=== PATIENT | female | born 1935 | race Caucasian/White ===

== ENCOUNTER 2023-05-06 04:00 | Inpatient (IN) | payer OTHER, SELFPAY ==
[2023-05-05 22:10] VITALS: BP 93/46; BMI 20.8
[2023-05-05 22:29] LABS: % Basophils 1.3 % (0-2); % Eosinophils 3.3 % (0-6); % Immature Granulocytes 0.6 % (0-0.5); % Lymphocytes 16.5 % (20.5-51.1); % Monocytes 15.3 % (1.7-9.3); Absolute Basophils 0.1 10^3/uL (0-0.2); Absolute Eosinophils 0.2 10^3/uL (0-0.7); Absolute Lymphocytes 0.9 10^3/uL (1.2-3.4); Absolute Monocytes 0.8 10^3/uL (0.1-0.6); Absolute Neutrophils 3.4 10^3/uL (1.4-6.5); Hemoglobin 11.1 g/dL (12.0-16.0); Mean Corp Hgb Conc. 33.6 g/dL (33.0-37.0); Mean Corpuscular Hgb 27.8 pg (27.0-31.0); Mean Corpuscular Volume 82.5 fL (81.0-99.0); Mean Platelet Volume 9.8 fL (7.4-10.4); Nucleated Red Blood Cells % 0 %; Platelet Count 228 10^3/uL (130-400); Red Cell Dist. Width 17.2 % (11.5-14.5); White Blood Cell Count 5.4 10^3/uL (4.8-10.8)
[2023-05-05 22:41] LABS: ALT (SGPT) 21 U/L (0-35); AST (SGOT) 31 U/L (14-36); Albumin 3.3 g/dl (3.5-5.0); Alkaline Phosphatase 70 U/L (38-126); Blood Urea Nitrogen 28 mg/dl (7-17); Calcium 9.2 mg/dl (8.4-10.2); Carbon Dioxide 32 mmol/L (22-30); Chloride 101 mmol/L (98-107); Estimated Creatinine Clearance 39 ml/min; Glucose 92 mg/dl (70-99); Potassium 4.5 mmol/L (3.5-5.1); Sodium 134 mmol/L (135-145); Total Bilirubin 0.4 mg/dl (0.2-1.3); Total Protein 6.5 g/dl (6.3-8.2); eGFR > 60.00
[2023-05-05 23:28] VITALS: BP 86/58
[2023-05-05] MEDS: NSS 500 IV (23:58)
[2023-05-06] VITALS (47 sets, daily range): BP systolic 64–170; BP diastolic 38–102; BMI 21.1
[2023-05-06 00:42] LABS: Urine Albumin Negative (Neg - Trace); Urine Bilirubin Negative (Negative); Urine Character Slightly Cloudy (Clear); Urine Color Yellow; Urine Glucose Negative (Negative); Urine Ketone Trace (Negative); Urine Leukocyte Negative (Negative); Urine Nitrite Negative (Negative); Urine Occult Blood 1+ (Negative); Urine Specific Gravity 1.015 (<1.030); Urine Urobilinogen Negative (Neg - 1+)
[2023-05-06 01:00] LABS: Urine Amorphous Seen; Urine Bacteria Many (Negative); Urine Mucus Many; Urine Squamous Cell >30 /LPF (Few)
[2023-05-06 01:01] LABS: Urine Hyaline Cast >15 /LPF (0-2)
[2023-05-06 01:02] LABS: Urine White Cell 30-40 /HPF (0-5)
[2023-05-06 01:03] LABS: Urine Urothelial Cell >30 /LPF (FEW)
[2023-05-06 01:08] LABS: Lactic Acid 1.3 mmol/L (0.7-2.0)
[2023-05-06] MEDS: ROCEPHIN 1000 MG IV ×2 (01:35→23:16)
[2023-05-06] MEDS: NSS 1000 IV (01:37)
--- NOTE | 2023-05-06 01:43 | ED.GENMED ---
History of Present Illness
General
Chief Complaint: Change Level of Consciousness
Source: patient
Exam Limitations: none
Time Seen by Provider: 05/05/23 23:13
Nursing documentation reviewed up to this point in time: agreed with
Travel History
Have you had any contact with someone who has COVID-19?: Unable to Answer
Do you have any symptoms of coronavirus? Fever > 100 degrees, chills, cough, shortness of breath, sore throat, loss of taste or smell, muscle aches, or headache?: Unable to Answer
History of Present Illness
History of Present Illness:
Patient with history of dementia, presents to ED from senior care, secondary to mental status change along with hypotension. Patient was also given her nighttime Xanax, as well as melatonin, which started tonight. On arrival, patient is
somnolent, but arousable to voice. Patient does not offer any additional information. Per daughters at bedside, when aroused, patient is able to recognize her daughter and answer simple questions.
Past History
Past History
ED Past Medical History: Arrthythmia (Atrial fibrillation), CHF, HTN, Hypercholesterolemia, Hypothyroidism and Psychiatric (ANXIETY); Negative CAD
ED Past Surgical History: Appendectomy, Cardiac (Pacemaker) and Gynecological (Hysterectomy, breast lumpectomy)
Social History
Tobacco: Non-smoker
Alcohol: Occasional
Drug: None
Personal:
Living: with family
Employment: Retired
Family History
Family History: Other (Noncontributory)
Review of Systems
Review of Systems
Allergies reviewed?: Yes
Unable to obtain full review of systems at this time due to: dementia
All Other Systems: Not applicable
Phy Exam
Physical Exam
Physical Exam:
Physical Exam
General: no apparent distress, not acutely ill. afebrile. somnolent but arousable to loud voice. hypotensive.
Head: nc/at.
Neck: supple. no meningeal signs.
Heart: s1/s2 regular rate and rhythm, no murmur. equal radial pulses.
Lungs: no acute respiratory distress. clear bilaterally
Abdomen: normal bowel sounds. not tender.
Neuro: somnolent but arousable. no focal neurological deficits
Skin: no rash
Extremities: no edema. no calf tenderness.
Course
Orders/Labs/Results
Orders:
Orders
05/05/23 22:21
Complete Blood Count/With Diff Urgent
Comprehensive Metabolic Panel Urgent
05/05/23 23:49
Straight cath- Treatment ONCE
Lactic Acid Q4H
Comment: CANCEL 2nd LACTIC ACID IF 1st LACTIC ACID IS LESS THAN 2
Urinalysis Reflex To Culture Urgent
Date Specimen was Collected: 05/05/23
Time Specimen was Collected: 00:00
Blood Culture Q30M
ALEXIA Source: Blood/Venous
Specimen Description:
05/05/23 23:50
0.9% Sodium Chloride 500 ml [Nss] 500 ml IV BOLUS
05/06/23 00:00
CT Head W/o Iv Contrast Urgent
Reason For Exam: mental status change
05/06/23 00:06
Urine Microscopic Reflex Cult Urgent
Urine Culture Urgent
ALEXIA Source: U
Specimen Description:
Date Specimen was Collected: 05/05/23
Time Specimen was Collected: 00:00
05/06/23 01:29
CefTRIAXone [Rocephin] 1,000 mg IV NOW STA
05/06/23 01:30
0.9% Sodium Chloride 1000 ml [Nss] 1,000 ml IV BOLUS
05/06/23 02:33
Admit/Transfer Patient As Directed
Co-Sign Provider:
Level of Care: Inpatient admission
Assign to:: Telemetry
Physician / Group: Dr. Orozco hospitalist
Diagnosis: UTI, Hypotension, Dehydration
Reason for Telemetry: Medication for Arrhythmia
Date to Stop Telemetry: 05/08/23
Time to Stop Telemetry: 11:00
Reason for Hospitalization: UTI, Hypotension, Dehydration
Expected length of stay greater than two midnights?: Yes
ELOS- Estimated Length of Stay in days: 5
I certify the patient meets the requirements for IP care: Yes
05/06/23 02:48
Code Status As Directed
Resuscitation Status: Full Code
05/06/23 03:32
Lactated Ringers [Lr] 500 ml IV BOLUS
05/06/23 03:44
Transfer Patient As Directed
Transfer to: ICU
Comment: Per Dr. Orozco
05/06/23 04:00
Flush (0.9% Sodium Chloride) [Flush (Nss)] See Dose Instructions IV PER PROTOCOL
05/06/23 04:48
Acetaminophen [Tylenol] 650 mg PO Q4HPRN PRN
Alprazolam [Xanax] 0.5 mg PO TID PRN
Lactated Ringers [Lr] 1,000 ml IV 100 mls/hr
Risperidone [Risperdal] 0.25 mg PO DAILY PRN
Risperidone [Risperdal] 0.5 mg PO HS PRN
05/06/23 04:48
Activity As Directed
Activity Level: As Tolerated
Pneumatic Compression Sleeves As Directed
Type: Knee high
Vital Signs As Directed
Frequency: Per unit guidelines
DX Deep Vein Thrombosis Video Routine
05/06/23 05:43
Basic Metabolic Panel IN AM
Complete Blood Count/No Diff IN AM
Magnesium IN AM
TSH IN AM
Blood Culture Q30M
ALEXIA Source: Blood/Venous
Specimen Description:
05/06/23 Breakfast
NPO
Allow oral meds: Yes
Allow clear liquids: No
05/06/23 07:00
Levothyroxine [Synthroid] 25 mcg PO DAILY AT 0700
05/06/23 08:00
Apixaban [Eliquis] 2.5 mg PO BID
Docusate W/Senna [Senokot-S] 2 tablet PO BID
Sotalol [Betapace] 80 mg PO BID
05/06/23 23:00
CefTRIAXone [Rocephin] 1,000 mg IV Q24H
05/08/23 11:00
DC Protocol for Telemetry ONCE
Abnormal Lab Results
05/05/23 05/06/23
22:21 00:06
RBC 4.00 L 10^6/uL
(4.20-5.40)
Hgb 11.1 L g/dL
(12.0-16.0)
Hct 33.0 L %
(37.0-47.0)
RDW 17.2 H %
(11.5-14.5)
Absolute Lymphs (auto) 0.9 L 10^3/uL
(1.2-3.4)
Absolute Monos (auto) 0.8 H 10^3/uL
(0.1-0.6)
Immature Gran % 0.6 H %
(0-0.5)
Lymphocytes % 16.5 L %
(20.5-51.1)
Monocytes % 15.3 H %
(1.7-9.3)
Sodium 134 L mmol/L
(135-145)
Carbon Dioxide 32 H mmol/L
(22-30)
BUN 28 H mg/dl
(7-17)
Albumin 3.3 L g/dl
(3.5-5.0)
Urine Ketones Trace A
(Negative)
Ur Occult Blood Reflex 1+ A
(Negative)
Urine RBC 7-10 A /HPF
(0-2)
Urine WBC (Reflex) 30-40 A /HPF
(0-5)
Urine Bacteria (Reflex) Many A
(Negative)
05/05/23 22:21
05/05/23 22:21
Vital Signs
Initial and Last Documented VS:
Initial Vital Signs
Temp Pulse Resp BP Pulse Ox
97.6 F 65 16 93/46 96
05/05/23 22:10 05/05/23 22:10 05/05/23 22:10 05/05/23 22:10 05/05/23 22:10
Last Documented Vital Signs
Temp Pulse Resp BP Pulse Ox
97 F 60 12 142/74 94
05/06/23 07:47 05/06/23 07:45 05/06/23 07:45 05/06/23 07:40 05/06/23 08:20
MDM/Problems Addressed
MDM/Problems Addressed:
Per senior care, patient's baseline blood pressure is systolic 100/110.
CT head: No acute findings.
Patient's presenting symptoms likely secondary to UTI versus medication effect versus metabolic encephalopathy. Patient will be treated empirically with antibiotics as well as IV fluids.
Urine culture and blood culture pending.
*Critical Care Note
Total Time (30-74mins, 75-104mins- exclusive of procedures): Not Applicable
ED Attending Note
-
Portions of this chart may have been created with voice recognition software.� Occasional wrong word or��sound alike� substitutions may have occurred due to the inherent limitations of voice recognition software.
Discharge Plan
Departure
Patient Disposition: Admit
Date of Disposition: 05/06/23
Time of Disposition: 01:52
Admit to: Telemetry
Presentation/result/management discussed w/ accepting MD/DO: Hospitalist
Discharge Problem:
Altered mental status, Acute UTI
Interventions
Interventions:
*Risk Screen - Suicide Last Done: 05/05/23 22:10
*General Assessment Last Done: 05/05/23 22:10
*Neglect/Abuse Screening Last Done: 05/05/23 22:10
ED- Fall Risk Assessment Last Done: 05/05/23 22:10
*ED COVID-19 Vaccine History Last Done: 05/05/23 22:10
*Nursing Disposition Last Done: 05/06/23 04:53
ED- Cardiac Assessment Last Done: 05/05/23 22:10
ED- Neurological Assessment Last Done: 05/05/23 22:10
ED-Psychological Assessment Last Done: 05/05/23 22:10
ED- Pulmonary Assessment Last Done: 05/05/23 22:10
Discharge Date and Time
Discharge Date/Time: 05/06/23 04:53
--- NOTE | 2023-05-06 02:31 | HPS.HSE ---
Addendum entered and electronically signed by Cassius Orozco MD 05/06/23 04:21:
Evolving Septic shock due to UTI
MAP < 60. LR 500 cc bolus but SBP dropped again 65
- cont. IV CFTZ
- start NE gtt and�
- TF to ICU
�
Original Note:
Family Physician
-
Family Physician: Gopal Thakur DO
Chief Complaint
-
lethargy
History of Present Illness
88F [facility] Res HX dementia sent to ER for secondary to mental status change along with hypotension.
Patient was also given her nighttime Xanax, as well as melatonin, which started tonight.
On arrival, patient is somnolent, but arousable to voice. Patient does not offer any additional information.
Per daughters at bedside, when aroused, patient is able to recognize her daughter and answer simple questions.
Medical History
Past Medical History
Past Medical History: Reports Arrhythmia (Prx AF ), Dementia, HTN and Psychiatric (anxiety / depression )
Past Surgical History: Reports Other
Social History
Tobacco: Non-smoker
Alcohol: None
Living: Retirement
Family History
Family History: Not pertinent
Allergies / Home Medications
Allergies reflects when Allergies were last updated in [facility].
Home Medications with original date entered in [facility]
Allergy/Medication List:
Allergies
Allergy/AdvReac Type Severity Reaction Status Date / Time
carbamazepine [From Tegretol] Allergy hypertension, Verified 05/05/23 22:19
pain
codeine [Codeine] Allergy upset Verified 05/05/23 22:19
stomach
morphine Allergy Unknown Verified 05/05/23 22:19
Penicillins Allergy Hives Verified 05/05/23 22:19
sulfamethoxazole Allergy 'burning Verified 05/05/23 22:19
[From Bactrim] inside
whole body'
tramadol Allergy Unknown Verified 05/05/23 22:19
trimethoprim [From Bactrim] Allergy 'burning Verified 05/05/23 22:19
inside
whole body'
Home Medications
furosemide 20 mg tablet 20 mg PO DAILY Fluid retention/Swelling 09/08/14
levothyroxine 25 mcg tablet 25 mcg PO DAILY Thyroid 09/09/14
sotalol 80 mg tablet 80 mg PO BID ##180 09/10/14
acetaminophen 500 mg tablet (Tylenol Extra Strength) 1,000 mg PO Q6HPRN PRN mild pain 07/10/19
alendronate 70 mg tablet 70 mg PO TH bone health 07/10/19
citalopram 20 mg tablet 10 mg PO DAILY Mental Health 07/10/19
lisinopril 20 mg tablet 40 mg PO DAILY Blood pressure 07/10/19
apixaban 2.5 mg tablet (Eliquis) 2.5 mg PO BID #60 tabs 07/14/19
acetaminophen 325 mg tablet (Tylenol) 650 mg PO Q4HPRN PRN fever 03/31/23
alprazolam 0.5 mg tablet (Xanax) 0.5 mg PO TID 03/31/23
bisacodyl 10 mg rectal suppository (Dulcolax (bisacodyl)) 10 mg OR [id number] PRN if no bm aftr mom 03/31/23
cholecalciferol (vitamin D3) 125 mcg (5,000 unit) tablet (Vitamin D3) 125 mcg PO MONTHLY 03/31/23
magnesium hydroxide 400 mg/5 mL oral suspension (Milk of Magnesia) 2,400 mg PO HSPRN PRN constipation 03/31/23
memantine 7 mg capsule sprinkle,extended release 24hr (Namenda XR) 7 mg PO DAILY 03/31/23
risperidone 0.25 mg tablet 0.25 mg PO DAILY 03/31/23
risperidone 0.5 mg tablet 0.5 mg PO HS 03/31/23
sennosides 8.6 mg-docusate sodium 50 mg capsule (Senna Plus) 2 tab-cap PO BID 03/31/23
Review of Systems
-
Constitutional: Reports No Symptoms
EENT: Reports No Symptoms
Respiratory: Reports No Symptoms
Cardiac: Reports No Symptoms
Abdomen/GI: Reports No Symptoms
: Reports No Symptoms
Musculoskeletal: Reports No Symptoms
Skin: Reports No Symptoms
Neurological: Reports See HPI
Endocrine: Reports No Symptoms
Hematologic/Lymphatic: Reports No Symptoms
Psych: Reports No Symptoms
Physical Exam
Vital Signs
Vital Signs
Temp Pulse Resp BP Pulse Ox
97.6 F 60 16 92/51 94
05/05/23 22:10 05/06/23 01:56 05/06/23 01:56 05/06/23 02:00 05/06/23 01:56
Physical Exam
General: Other (see below )
Laboratory Results
-
05/05/23 22:21
05/05/23 22:21
Laboratory Results
Lactic Acid 1.3 mmol/L (0.7-2.0) 05/06/23 00:06
Total Bilirubin 0.4 mg/dl (0.2-1.3) 05/05/23 22:21
AST 31 U/L (14-36) 05/05/23 22:21
ALT 21 U/L (0-35) 05/05/23 22:21
Alkaline Phosphatase 70 U/L (38-126) 05/05/23 22:21
Data Reviewed
-
CT Scan: Report Reviewed by me
Lab Data: Labs Reviewed by me
Old Records: Reviewed
Impression/Plan
-
Reviewed VS: Afebrile HR 60 BP 75/40 --> 90/50 RR 16 POx 94 - 97
PE
Gen: no apparent distress
HEENT: anicteric
Neck: supple
Lungs: CTA
Cor: RRR S1 S2
Abdomen: benign exam
TECHNOLOGY INTEGRATION SPECIALIST: AA O3 NFND
MS: no edema
Psych:
Data
Nl WCC
Hgb 11.1
Na 134
CO2 32 - baseline low 30s
nl Cr
nl eGFR
UA POS for UCx
Pending LA
BCx sent
HCT
No acute ICH
No mass effect
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
Last hospitalist admission: 07/20/20 - 07/22/20
P Dxs:
Right fifth metatarsal fracture with distal calcaneus extensor tendon injury, avulsion fractures of the distal
fibula and medial malleolus.
SECONDARY DIAGNOSES:
1. Dementia with anxiety.
2. Paroxysmal atrial fibrillation.
3. Sick sinus syndrome.
4. Anxiety/depression.
5. Osteoarthritis.
6. Hypothyroidism.
7. Depression.
ASSESSMENT & PLAN
Pending Rx reconciliation
UTI
Associated Lethargic TME due to UTI
- NPO for aspiration precaution
- IV CFTX
- Held Melatonin
- Switch to Risperidone PRN in place of schedule dose to lethargy
- cont. Xanax - held excessive sedation
- Fall precaution
Hypotension suspect dehydration rather than sepsitc shock
Hypercarbia - suspect contraction alkalosis
HX essential HTN on Lasix and ACEI
- IVF
- Held Lasix
- Held Lisinopril
- Observe BP
HX Prx AF
HX Sick sinus syndrome.
- cont Eliquis and sotalol
HX Dementia
HX Anxiety/depression
HX Hypothyroidism
- Pending Rx reconciliation
HX Osteoarthritis.
DVT Px: on chr Eliquis
Code: Full
IP TLM
[2023-05-06] MEDS: LR 500 IV (03:35)
--- NOTE | 2023-05-06 03:36 | EDRN ---
Dr. Orozco made aware of patient's BP, Pt roused from sleep, responding to tactile stimul. SEE MAR for order.
[2023-05-06] MEDS: LEVOPHED 250 IV (04:23)
--- NOTE | 2023-05-06 04:23 | W.PN.UPDATE ---
Addendum entered and electronically signed by Cassius Orozco MD 05/06/23 04:31:
Talent Sourcer and ID consult
Original Note:
Update Note
Progress Note Update
DIRECTOR OF ROTC noted DNR per [facility] record
- Code status change to DNR
- cont NE gtt and Fluid resuscitation for septic shock which can be reversible
- cont. IV CFTX
- cont ICU level care
--- NOTE | 2023-05-06 05:09 | W.PN.SEPSIS ---
Sepsis
Vital Signs
Temp Pulse Resp BP Pulse Ox
97.6 F 65 14 107/60 94
05/05/23 22:10 05/06/23 04:15 05/06/23 04:27 05/06/23 04:27 05/06/23 01:56
Physical Exam
Physical Exam:
A focused exam was performed after fluid resuscitation.
Capillary Refill
Bilateral Upper Extremity:
Oscar Time: Less than 3 sec
Bilateral Lower Extremity:
Oscar Time: Less than 3 sec
Pulse Evaluation
Bilateral Radial:
Pulse Evaluation: Present
Bilateral Dorsalis Pedis:
Pulse Evaluation: Present
[2023-05-06] MEDS: LR 1000 IV ×3 (05:40→23:15)
[2023-05-06 05:52] LABS: Hematocrit 33.6 % (37.0-47.0); Hemoglobin 10.9 g/dL (12.0-16.0); Mean Corp Hgb Conc. 32.4 g/dL (33.0-37.0); Mean Corpuscular Hgb 28.2 pg (27.0-31.0); Mean Corpuscular Volume 86.8 fL (81.0-99.0); Mean Platelet Volume 9.6 fL (7.4-10.4); Platelet Count 209 10^3/uL (130-400); Red Blood Cell Count 3.87 10^6/uL (4.20-5.40); Red Cell Dist. Width 17.2 % (11.5-14.5); White Blood Cell Count 4.5 10^3/uL (4.8-10.8)
[2023-05-06 06:05] LABS: Blood Urea Nitrogen 22 mg/dl (7-17); Calcium 8.4 mg/dl (8.4-10.2); Carbon Dioxide 30 mmol/L (22-30); Chloride 108 mmol/L (98-107); Estimated Creatinine Clearance 44 ml/min; Glucose 94 mg/dl (70-99); Magnesium 2.1 mg/dl (1.6-2.3); Potassium 4.5 mmol/L (3.5-5.1); Sodium 137 mmol/L (135-145); eGFR > 60.00
[2023-05-06 06:35] LABS: TSH 5.86 uIU/ml (0.47-4.68)
--- NOTE | 2023-05-06 07:09 | PTCARENOTE ---
Patient received from ED via stretcher. Levophed infusing @ 2 mcg/min through left AC w/no concerns. Ox1, self only; HR reg, A paced, HR 60; lungs diminished t/o on room air, pulsox 92%, BS x 4, purewick placed and patient refused. Asked for bed
purdy. Patient does speak occasionally, did ask to go to the bathroom, used bed purdy. Patient also said 'my arm hurts' when obtaining am labs. See Nursing shift assessment for full
--- NOTE | 2023-05-06 07:15 | PTCARENOTE ---
Received patient from senior software engineer. Patient is awake, minimally responsive, somnolent, unable to respond to any commands, only repeatedly states 'I have to pee'. Patient is on room air, diminished throughout, no inspiratory effort, does not
respond when asked to take a deep breath. Patient is A-paced on monitor. no edema noted. She has been incontinent of urine, brief on. Currently NPO. Will hold PO meds until seen by speech. IVF infusing in to left AC along with 1mcg of
levophed. Will review orders, bed in lowest position, call robison within reach and bed alarm is on. Maintain safe environment.
--- NOTE | 2023-05-06 07:31 | CON.ID ---
Consultation
-
Date/Time Consultation Requested: 05/06/2023 04:29
Date/Time Consultation Performed: 05/06/2023 07:20
Requesting Provider: Dr. Orozco
Performing Provider: Dr. Bloom
Reason for Consultation: UTI; encephalopathy
Chief Complaint / Past History
History of Present Illness
Marie Rodriguez is a 88-year-old female with an underlying history of dementia, A-fib and CHF being evaluated at the request of Dr. Orozco in regards to suspected urinary tract infection. History is obtained from chart review alone, as the patient
could provide no history for me.
Patient resides at a local correction and was brought to the emergency room. [facility] last evening secondary to reported change in mental status and hypotension. While in the emergency room, her blood pressure dropped into the 60s, and
she has been started on norepinephrine and admitted to the intensive care unit. Laboratory workup did not show a leukocytosis, but urinalysis revealed pyuria. She has been started on empiric antibiotics.
At this time no further history nor review of systems is available.
Past History
Additional Past Medical History:
Dementia
A-fib
CHF
HTN
Dyslipidemia
Hypothyroidism
Anxiety
Additional Past Surgical History:
Appendectomy
PPM placement
JOSE
Lumpectomy
Allergy History:
carbamazepine [From Tegretol] Allergy (Verified 05/05/23 22:19)
hypertension, pain
codeine [Codeine] Allergy (Verified 05/05/23 22:19)
upset stomach
morphine Allergy (Verified 05/05/23 22:19)
Unknown
Penicillins Allergy (Verified 05/05/23 22:19)
Hives
sulfamethoxazole [From Bactrim] Allergy (Verified 05/05/23 22:19)
'burning inside whole body'
tramadol Allergy (Verified 05/05/23 22:19)
Unknown
trimethoprim [From Bactrim] Allergy (Verified 05/05/23 22:19)
'burning inside whole body'
Social History
Tobacco: Non-Smoker
Alcohol: Occasional
Drug: None
Personal:
Employment: Not Employed
Review of Systems
Vital Signs
Temp Pulse Resp BP Pulse Ox
98.0 F 60 9 114/59 92
05/06/23 05:00 05/06/23 07:15 05/06/23 07:15 05/06/23 07:00 05/06/23 07:15
Physical Exam
Physical Exam
Constitutional: Acutely Ill, Chronically Ill and Non-toxic
Eyes: Pupils Equal, Pupils Round, No Conjunctival Hemorrhage and Sclera Anicteric
Oral: No Thrush and No Ulcers
Cardiovascular: S1/S2; Negative S3/S4 or Murmur
Pulmonary: Non Labored; Negative Wheezes, Rales or Rhonchi
Gastrointestinal: Soft, Non Tender, Non Distended, Normal Bowel Sounds, No Rebound and No Guarding
Genito-Urinary: Negative An or Suprapubic Tenderness
Extremities: Edema (1+); Negative Cyanosis or Erythema
Neurological: Other (Responsive to voice and touch. Nonverbal for me.)
Psychological: Calm
.
Lab / Diagnostic Study Results
05/06/23 05:43
05/06/23 05:43
Abs Immat Gran (auto) 0.0 10^3/uL (0-0.05) 05/05/23 22:21
Absolute Neuts (auto) 3.4 10^3/uL (1.4-6.5) 05/05/23 22:21
Absolute Lymphs (auto) 0.9 10^3/uL (1.2-3.4) L 05/05/23 22:21
Absolute Monos (auto) 0.8 10^3/uL (0.1-0.6) H 05/05/23 22:21
Absolute Basos (auto) 0.1 10^3/uL (0-0.2) 05/05/23 22:21
Immature Gran % 0.6 % (0-0.5) H 05/05/23 22:21
Neutrophils % 63.0 % (42.2-75.2) 05/05/23 22:21
Lymphocytes % 16.5 % (20.5-51.1) L 05/05/23 22:21
Monocytes % 15.3 % (1.7-9.3) H 05/05/23 22:21
Eosinophils % 3.3 % (0-6) 05/05/23 22:21
Basophils % 1.3 % (0-2) 05/05/23 22:21
Lactic Acid Cancelled 05/06/23 03:49
Ur Squamous Epith Cells >30 /LPF (Few) 05/06/23 00:06
Microbiology Results
Micro:
05/06/23 05:43 Blood Culture - Pending
Blood/Venous
05/06/23 00:06 Urine Culture - Pending
Urine
05/06/23 00:06 Blood Culture - Pending
Blood/Venous
Imaging:
05/06/2023 CXR (portable): Stable left chest wall cardiac device with intact leads. No convincing focal infiltrates. No pleural effusion or pneumothorax seen. Please see full dictation for additional detail. Film personally viewed.
05/06/2023 CT head: No acute intracranial abnormality noted.
Assessment / Plan
Clinical sepsis
Suspected complicated urinary tract infection
Hypotension
Dementia
A-fib
CHF
HTN
Dyslipidemia
Hypothyroidism
Anxiety
Recommendations:
Given residence in correction, broaden antibiotic coverage to cefepime.
Follow-up pending cultures (blood, urine), and adjust antibiotics as further data is returned.
Monitor white count and temperature curve.
Repeat blood cultures for temperature greater than 101 degrees.
Continue pressor therapy to maintain MAP greater than 65.
[2023-05-06] MEDS: SYNTHROID PO (07:40)
[2023-05-06] MEDS: BETAPACE PO ×2 (07:40→19:05)
[2023-05-06] MEDS: SENOKOT-S PO ×2 (07:41→19:05)
[2023-05-06] MEDS: ELIQUIS PO ×2 (07:41→19:05)
--- NOTE | 2023-05-06 08:00 | PTCARENOTE ---
Has only stated 'I have to pee, minimally incontinent, PVR >400, straight cathed for 420ml.
--- NOTE | 2023-05-06 09:06 | CON.INTV ---
Consultation
Consultation Request
Date/Time Consultation Requested: 05/06/2023428
Date/Time Consultation Performed: 05/06/2023903
Requesting Provider: Dr. Orozco
Performing Provider: Dr. Espinoza
Reason for Consultation: Shock
Medical History
-
Chief Complaint: Unresponsiveness
History of Present Illness:
88-year-old female with past medical history of hypertension, A-fib on Eliquis, hypothyroidism, hyperlipidemia and anxiety who presented from [facility] ([facility]) after episode of unresponsiveness after receiving melatonin and Xanax.
While in triage here in the ER she was back at baseline. In the ER she was afebrile to 97.6 �F, pulse rate 60, hypotensive to 64/43, and saturated at 94% on room air. Patient was confused and is a poor historian. Labs showed mild hyponatremia
134, elevated serum bicarbonate of 32, lactate normal at 1.3, glucose 92, WBC normal at 5.4, Hb low at 11.1, and platelet count 228. Urinalysis was negative for leukocyte esterase or nitrites and showed 30�40 urine WBCs with many bacteria. A total
of 2 L fluids were given (1.5 L NS 0.9%, 500 cc of LR) and ceftriaxone was started and patient was admitted to the hospitalist service. Due to hypotension, Levophed was started and patient transferred to ICU for further care with critical care
services consulted for additional management/recommendations.
When I saw the patient she was in bed, confused,, repeating that she wants something to drink, on room air saturating 93%. BP 88/57, heart rate 60 and respiratory rate 12.
PMHx: A-fib on Eliquis, hypertension, hyperlipidemia, history of bradycardia, history of pneumonia, hemorrhoids, hypothyroidism, impaired vision, anxiety, dementia
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
Past Medical History
Past Medical History: Other (Above as per HPI)
Past Surgical History: Other (Above as per HPI)
Social History
Tobacco: Non-smoker
Alcohol: None
Drug: None
Living: Jail
Family History
Family History: Reviewed & Not Pertinent
Allergies / Home Medications
Allergies
Allergy/AdvReac Type Severity Reaction Status Date / Time
carbamazepine [From Tegretol] Allergy hypertension, Verified 05/05/23 22:19
pain
codeine [Codeine] Allergy upset Verified 05/05/23 22:19
stomach
morphine Allergy Unknown Verified 05/05/23 22:19
Penicillins Allergy Hives Verified 05/05/23 22:19
sulfamethoxazole Allergy 'burning Verified 05/05/23 22:19
[From Bactrim] inside
whole body'
tramadol Allergy Unknown Verified 05/05/23 22:19
trimethoprim [From Bactrim] Allergy 'burning Verified 05/05/23 22:19
inside
whole body'
Home Medications
Medication Instructions Recorded Confirmed Last Taken Type
furosemide 20 mg tablet 20 mg PO DAILY Fluid 09/08/14 03/31/23 07/10/19 History
retention/Swelling
levothyroxine 25 mcg tablet 25 mcg PO DAILY Thyroid 09/09/14 03/31/23 07/10/19 History
sotalol 80 mg tablet 80 mg PO BID ##180 09/10/14 03/31/23 07/10/19 09:00 Rx
acetaminophen 500 mg tablet 1,000 mg PO Q6HPRN PRN mild pain 07/10/19 03/31/23 Unknown History
(Tylenol Extra Strength)
alendronate 70 mg tablet 70 mg PO TH bone health 07/10/19 03/31/23 07/10/19 History
citalopram 20 mg tablet 10 mg PO DAILY Mental Health 07/10/19 03/31/23 07/10/19 History
lisinopril 20 mg tablet 40 mg PO DAILY Blood pressure 07/10/19 03/31/23 07/10/19 History
apixaban 2.5 mg tablet (Eliquis) 2.5 mg PO BID #60 tabs 07/14/19 03/31/23 Unknown Rx
acetaminophen 325 mg tablet 650 mg PO Q4HPRN PRN fever 03/31/23 03/31/23 Unknown History
(Tylenol)
alprazolam 0.5 mg tablet (Xanax) 0.5 mg PO TID 03/31/23 03/31/23 Unknown History
bisacodyl 10 mg rectal suppository 10 mg ID [id number] PRN if no bm aftr 03/31/23 03/31/23 Unknown History
(Dulcolax (bisacodyl)) mom
cholecalciferol (vitamin D3) 125 125 mcg PO MONTHLY 03/31/23 03/31/23 Unknown History
mcg (5,000 unit) tablet (Vitamin
D3)
magnesium hydroxide 400 mg/5 mL 2,400 mg PO HSPRN PRN constipation 03/31/23 03/31/23 Unknown History
oral suspension (Milk of Magnesia)
memantine 7 mg capsule 7 mg PO DAILY 03/31/23 03/31/23 Unknown History
sprinkle,extended release 24hr
(Namenda XR)
risperidone 0.25 mg tablet 0.25 mg PO DAILY 03/31/23 03/31/23 Unknown History
risperidone 0.5 mg tablet 0.5 mg PO HS 03/31/23 03/31/23 Unknown History
sennosides 8.6 mg-docusate sodium 2 tab-cap PO BID 03/31/23 03/31/23 Unknown History
50 mg capsule (Senna Plus)
Review of Systems
-
Unable to Obtain full review of systems at this time due to: Dementia
Vitals / Labs / Diagnostic Testing
Vital Signs
Temp Pulse Resp BP Pulse Ox
97 F 60 12 142/74 94
05/06/23 07:47 05/06/23 07:45 05/06/23 07:45 05/06/23 07:40 05/06/23 08:20
Lab Data
05/06/23 05:43
05/06/23 05:43
Diagnostic Testing:
Physical Exam
-
HEENT: Normocephalic and Anicteric
Cardiovascular: S1/S2 and Peripheral Edema (Negative)
Respiratory: Clear, Wheeze (Negative), Rales (Negative), Rhonchi (Negative) and Non-Labored Respirations
GI: Soft, Non Distended and Non Tender
Neurology: Awake, No Motor Deficits (Negative) and Other (confused)
Skin: Warm and Dry
General: Comfortable
Assessment
-
Assessment: 88-year-old female with a PMHx of HTN, A-fib on Eliquis, hypothyroidism, hyperlipidemia and anxiety who presented from [facility] ([facility]) after episode of unresponsiveness after receiving melatonin and Xanax. She was found
to be hypotensive and given IV fluids. She was also nonverbal and CT head showed no evidence of intracranial abnormality. CXR also showed no acute cardiopulmonary process. Labs showed mild hyponatremia, elevated serum bicarbonate, WBC count was
normal and urinalysis showed elevated hyaline casts. Due to persistent hypotension despite 2 L of IV fluids, vasopressors were started and patient admitted to the ICU. Critical care services consulted for additional management/recommendations.
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
Impression:
#Shock - suspect hypovolemia (elevated urine hyaline casts and elevated sHCO3 consistent with contraction alkalosis); UTI also on differential; TSH also abnormal so hypothyroidism also on DDx
#Elevated serum bicarbonate -either due to primary metabolic alkalosis versus compensatory due to chronic respiratory acidosis
#Anemia (baseline Hb 11.5 - 13)
#AMS - apparently she is back to baseline as per ER triage documentation; DDx is TME with possible UTI vs delirium
#Hx of dementia
#Elevated TSH
Plan:
- Continue IVF but drop rate to 100cc/hr given her ABW is 56kg
- Check random cortisol level and if <10 then start stress dose steroids; if 10-19 then consider co-syntropin stim test
- Wean vasopressors to keep MAP>65
- Continue rocephin empirically but if pt remains afebrile and urine/blood Cx negative by 48 hr jeni, then would do short course Abx (3-5 days)
- Check/trend procal, and if negative then thats even more evidence to do short course of Abx
- Maintain euglycemia with goal BG 140-180mg/dL
- Check blood gas to assess pCO2 given elevated sHCO3
- NPO until mentation improves; may need DHT for tube feeds if she remains altered
- check free T4, free T3 --> if low then would start supplemental levothyroxine
- Replete K>3.5, Mg>1.8, PO4>3
- DVT ppx
Critical care statement: A total of 40 minutes of critical care time was provided for this patient today. This includes management of unstable vital signs, evaluation of the patient at bedside, reviewing the patient's pertinent medical records
including radiographs, microbiology, laboratory evaluations, and discussion with primary team, consultants, pharmacy, nutrition, physical therapy, case management, charge nurse, critical care nursing, and respiratory therapy.
Data:
CT Head 05-06-2023: No acute intracranial abnormality noted.
CXR 05-06-2023: No acute cardiopulmonary process.
--- NOTE | 2023-05-06 09:26 | W.PN.UPDATE ---
Update Note
Progress Note Update
Patient seen and examined after post midnight admission. Patient awake and alert but currently nonverbal.
142/74, 60, 12, 97.0 �F, 94% RA
NAD, awake and alert
RRR, normal S1/S2
CTAB
+BS/soft/NT/ND
CN2-12 intact
no LE edema
CXR: No acute cardiopulmonary process.
Septic shock due to UTI:
-cont Rocephin
-currently on 1mcg/kg/min Levophed, increase IVFs to 150cc/hr to wean off Levophed
-follow UCx/BCxs
-transfer to IMU
--- NOTE | 2023-05-06 09:39 | PTCARENOTE ---
Now written for IMU status. IVF changed to 150.hr and Levo turned off based on parameters.
--- NOTE | 2023-05-06 12:00 | PTCARENOTE ---
No change in patient's assessment, remains off levophed.
[2023-05-06 12:41] LABS: Glucose - Point of Care 100 mg/dl (70-99)
[2023-05-06 12:43] LABS: Free T3 3.07 pg/ml (2.77-5.27); Free T4 1.19 ng/dl (0.78-2.19)
[2023-05-06 12:56] LABS: Cortisol, Random 14.8 ug/dl
--- NOTE | 2023-05-06 19:09 | PTCARENOTE ---
received patient. pt nonverbal, does not respond to questions/follow commands. b/l soft wrist restraints in place, medsitter in room. SR/A paced on monitor. Pt placed on 2L NC, now satting mid 90s. diminished breath sounds noted. NPO status. brief
in place, dry. repositioned with wedge to L side. IVF infusing. safe environment maintained. IMU status. plan of care ongoing.
[2023-05-06] MEDS: STERILE WATER FOR INJECTION 10 ML IV (23:15)
[2023-05-07] VITALS (16 sets, daily range): BP systolic 78–152; BP diastolic 46–70; BMI 21.2
--- NOTE | 2023-05-07 00:58 | PTCARENOTE ---
patient reassessed. systems unchanged. pt repositioned, CHG bath done and new brief in place. daughter updated via phone. plan of care ongoing.
[2023-05-07 03:44] LABS: Venous Blood Gas B.E. 3.9 mmol/L (-4 to +4); Venous Blood Gas HCO3 29.7 mmol/L (22-27); Venous Blood Gas O2 Sat % 98.2 %; Venous Blood Gas pCO2 49 mmHg (35-48); Venous Blood Gas pH 7.39 (7.32-7.43); Venous Blood Gas pO2 141 mmHg (30-50)
[2023-05-07 03:54] LABS: % Basophils 0.8 % (0-2); % Eosinophils 2.8 % (0-6); % Immature Granulocytes 0.3 % (0-0.5); % Lymphocytes 12.5 % (20.5-51.1); % Monocytes 13.1 % (1.7-9.3); % Neutrophils 70.5 % (42.2-75.2); Absolute Basophils 0.1 10^3/uL (0-0.2); Absolute Eosinophils 0.2 10^3/uL (0-0.7); Absolute Lymphocytes 0.8 10^3/uL (1.2-3.4); Absolute Monocytes 0.8 10^3/uL (0.1-0.6); Absolute Neutrophils 4.4 10^3/uL (1.4-6.5); Hematocrit 30.7 % (37.0-47.0); Hemoglobin 10.4 g/dL (12.0-16.0); Mean Corp Hgb Conc. 33.9 g/dL (33.0-37.0); Mean Corpuscular Hgb 27.7 pg (27.0-31.0); Mean Corpuscular Volume 81.9 fL (81.0-99.0); Mean Platelet Volume 9.9 fL (7.4-10.4); Nucleated Red Blood Cells % 0 %; Platelet Count 209 10^3/uL (130-400); Red Blood Cell Count 3.75 10^6/uL (4.20-5.40); Red Cell Dist. Width 17.1 % (11.5-14.5); White Blood Cell Count 6.2 10^3/uL (4.8-10.8)
[2023-05-07 04:14] LABS: Blood Urea Nitrogen 16 mg/dl (7-17); Calcium 8.5 mg/dl (8.4-10.2); Carbon Dioxide 31 mmol/L (22-30); Chloride 104 mmol/L (98-107); Estimated Creatinine Clearance 58 ml/min; Glucose 98 mg/dl (70-99); Potassium 4.5 mmol/L (3.5-5.1); Sodium 136 mmol/L (135-145); eGFR > 60.00
--- NOTE | 2023-05-07 05:00 | PTCARENOTE ---
patient reassessed. systems unchanged. incontinent, brief changed. AM labs sent. pt repositioned in bed. plan of care ongoing.
[2023-05-07] MEDS: SYNTHROID PO (06:30)
--- NOTE | 2023-05-07 08:08 | W.PN.HOSP.TC ---
Today's Communication/Plan
-
Continue with cefepime. Follow culture data
Assessment / Plan
Assessment / Plan
Change in mental status-suspect TME. Neurologically grossly nonfocal and CT head was negative on admission. Currently alert but nonverbal [patient has dementia-unknown baseline] she had hypotension admission with concerns for sepsis. Currently
alert. Will discuss with family if her current situation is close to baseline.
Shock requiring vasopressors suspected septic. Afebrile. No leukocytosis on admission. Abnormal urinalysis noted. Off of vasopressors now. Continue with fluids till oral intake is adequate.
Possible UTI-patient with abnormal urine analysis. Await urine culture. ID input noted-continue the cefepime per ID
Urothelial cells in the urine-check cytology
Dementia-currently without agitation. Continue her memory medication and antidepressants. Patient is also on scheduled risperidone and Ativan at long term which I would continue
Paroxysmal atrial fibrillation-patient is a paced rhythm. Continue with sotalol.
Primary hypertension-hold lisinopril due to hemodynamics
DNR
Anticipated Discharge: > 48 hours
Subjective/Interval History
-
Date of Service: May 07, 2023
Patient with eyes open and tracks me but but does not verbalize anything.
She is in restraints in the upper extremities. No agitation currently.
Objective Data
-
Labs:
Laboratory Results
05/07/23
03:29
WBC 6.2
Hgb 10.4 L
Hct 30.7 L
Plt Count 209
Sodium 136
Potassium 4.5
Chloride 104
Carbon Dioxide 31 H
BUN 16
Creatinine 0.6
Glucose 98
Calcium 8.5
Vital Signs:
Vital Signs
Temp Pulse Resp BP Pulse Ox
99.0 F 60 8 107/55 97
05/07/23 03:02 05/07/23 07:00 05/07/23 07:00 05/07/23 07:00 05/07/23 06:00
I&O
05/06/23 05/07/23 05/08/23
06:59 06:59 06:59
Intake Total 70 / 143.8 2421.4 / 2421.4
Output Total 420 / 420
Balance 50 / 123.8 2000.2000.4
Review of Systems
-
Unable to obtain full review of systems at this time due to: Dementia and Patient Non-verbal
Physical Exam
-
General: No Apparent Distress
HEENT: Moist Mucous Membranes
Respiratory: Clear to Auscultation (Anterior)
Cardiac: Regular Rhythm and S1/S2; Negative Tachycardic
GI: Soft, Nondistended and Normal Bowel Sounds
Neuro: Awake, Alert and No Motor Deficits (Difficult exam but moves all 4 limbs); Negative Tremors or Facial Droop
Psych: Calm
Data Reviewed
-
Labs: Labs Reviewed by me
--- NOTE | 2023-05-07 08:27 | PTCARENOTE ---
Pt received this am. Assessment as documented. Pt makes eye contact. Nods head occasionally to questions. Very weak hand grasps. Does not always follow commands. Eats small amount ice when offered. No coughing noted. Incont of urine. Pt care ongoing
--- NOTE | 2023-05-07 09:20 | W.PN.ID1 ---
Date of Service
Date of Service: May 07, 2023
Today's Communication
Continue antibiotics.
Assessment / Plan
Clinical sepsis
Suspected complicated urinary tract infection
Hypotension
Dementia
A-fib
CHF
HTN
Dyslipidemia
Hypothyroidism
Anxiety
Recommendations:
Continue cefepime.
Follow-up pending cultures (blood, urine), and adjust antibiotics as further data is returned.
Monitor white count and temperature curve.
Repeat blood cultures for temperature greater than 101 degrees.
Vital Signs / Physical Exam
Vital Signs
Vital Signs
Temp Pulse Resp BP Pulse Ox
98.8 F 60 8 107/55 97
05/07/23 07:30 05/07/23 07:00 05/07/23 07:00 05/07/23 07:00 05/07/23 08:00
Physical Exam
Constitutional: No Acute Distress, Comfortable, Chronically Ill, Non-toxic and Cachetic
Cardiovascular: S1/S2; Negative S3/S4
Pulmonary: Non Labored
Gastrointestinal: Soft and Non Tender
Psychological: Calm
Objective Data
Lab Data
Lab Results
05/07/23 03:29
05/07/23 03:29
Estimated Creat Clear 58 ml/min 05/07/23 03:29
Lactic Acid Cancelled 05/06/23 03:49
Total Bilirubin 0.4 mg/dl (0.2-1.3) 05/05/23 22:21
AST 31 U/L (14-36) 05/05/23 22:21
ALT 21 U/L (0-35) 05/05/23 22:21
Alkaline Phosphatase 70 U/L (38-126) 05/05/23 22:21
Most recent labs reviewed.
Micro Results:
05/06/23 05:43 Blood Culture - Preliminary
Blood/Venous No Growth in 24 hours- Final report to follow
05/06/23 00:06 Blood Culture - Preliminary
Blood/Venous No Growth in 24 hours- Final report to follow
05/06/23 09:16 MRSA Screen - Pending
Nose
05/06/23 00:06 Urine Culture - Pending
Urine
Imaging:
05/06/2023 CXR (portable): Stable left chest wall cardiac device with intact leads. No convincing focal infiltrates. No pleural effusion or pneumothorax seen. Please see full dictation for additional detail. Film personally viewed.
05/06/2023 CT head: No acute intracranial abnormality noted.
--- NOTE | 2023-05-07 09:43 | W.PN.INTV ---
Today's Communication / Plan
Recommendations
Continue antibiotics
Follow-up urine culture sensitivities
PT/OT
Maintain SpO2 >90-94%
Check walking pulse ox prior to discharge
Patient stable for transfer out of ICU to telemetry. Time Checker/pulmonary service will now sign off. Please reconsult if there are any additional questions/concerns.
Assessment
-
Assessment: 88-year-old female with a PMHx of HTN, A-fib on Eliquis, hypothyroidism, hyperlipidemia and anxiety who presented from [facility] ([facility]) after episode of unresponsiveness after receiving melatonin and Xanax. She was found
to be hypotensive and given IV fluids. She was also nonverbal and CT head showed no evidence of intracranial abnormality. CXR also showed no acute cardiopulmonary process. Labs showed mild hyponatremia, elevated serum bicarbonate, WBC count was
normal and urinalysis showed elevated hyaline casts. Due to persistent hypotension despite 2 L of IV fluids, vasopressors were started and patient admitted to the ICU. Critical care services consulted for additional management/recommendations.
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
Impression:
#Shock (resolved) - suspect hypovolemia (elevated urine hyaline casts and elevated sHCO3 consistent with contraction alkalosis) in the setting of sepsis due to UTI
#Elevated serum bicarbonate - combination of primary metabolic alkalosis + compensatory due to chronic respiratory acidosis
#UTI due to strep spp
#Anemia (baseline Hb 11.5 - 13)
#AMS - apparently she is back to baseline as per ER triage documentation; DDx is TME with possible UTI vs delirium --> today as per daughter, patient is back to her usual self
#Hx of dementia
#Subclinical hypothyroidism
Plan:
- Patient has markedly improved, is off vasopressors, is HDN stable and is awaiting downgrade out of ICU to telemetry
- s/p IVF resuscitation
- Maintain MAP>65
- Continue Abx (changed rocephin to cefepime today) and considering patient was on vasopressors would complete 7-10 day course of Abx given urine Cx is (+) for Strep spp.
- Maintain euglycemia with goal BG 140-180mg/dL
- Replete K>3.5, Mg>1.8, PO4>3
- PT/OT
- DVT ppx
Dispo: Patient stable for transfer to telemetry. Time Checker/pulmonary service will now sign off. Patient has compensated chronic respiratory acidosis with no need for nocturnal BiPAP, although this should be monitored as an outpatient. Given her
age with dementia, continue to monitor with occasional venous blood gas as an outpatient, or trend serum bicarbonate. If there are any additional questions/concerns regarding this, please reach out to on-call pulmonary physician. Thank you for
allowing us to be involved in the care of this patient.
Data:
CT Head 05-06-2023: No acute intracranial abnormality noted.
CXR 05-06-2023: No acute cardiopulmonary process.
Subjective Dataa
Subjective Data
Date of Service:
Date of Service: May 07, 2023
Chief Complaint: Time Checker Follow Up
Subjective:
Patient seen this morning. No acute events overnight. Weaned off of Levophed. She is on 2 L/min nasal cannula saturating 95%. BP this morning is stable with BP 112/70. She is in no acute distress and is awaiting downgrade out of ICU to
telemetry.
Review of Systems
General: Other (Unable to obtain due to patient's clinical status (dementia/poor historian))
Objective Data
Data Reviewed
Vital Signs / I&O / Oxygen:
Vital Signs
Temp Pulse Resp BP Pulse Ox
98.8 F 64 12 124/51 95
05/07/23 07:30 05/07/23 09:00 05/07/23 09:00 05/07/23 09:00 05/07/23 09:00
Intake and Output
05/06/23 05/07/23 05/08/23
06:59 06:59 06:59
Intake Total 70 / 143.8 2421.4 / 2521.4 400 / 400
Output Total 420 / 420
Balance 50 / 123.8 2001.4 / 2101.4 400 / 400
SaO2 95
Nasal Cannula flow liters per 2
minute
Physical Exam
General: Respiratory Distress (Negative), Comfortable and Good Appetite
HEENT: Normocephalic and Anicteric
Cardiovascular: S1-S2 and Peripheral Edema (Non-pitting edema in the hands; no edema seen in the lower extremities)
Respiratory: Clear, Wheeze (Negative), Crackles (Negative), Rhonchi (Negative) and Other (Poor inspiratory effort)
GI: Soft, Non Distended and Non Tender
Neurology: Awake, Alert and Tremors (Negative)
Skin: Warm, Dry and Cyanosis (Negative)
Labs/Micro/Reports
Lab Data
05/07/23 03:29
05/07/23 03:29
Microbiology
05/06/23 05:43 Blood/Venous Blood Culture - Preliminary
No Growth in 24 hours- Final report to follow
05/06/23 00:06 Blood/Venous Blood Culture - Preliminary
No Growth in 24 hours- Final report to follow
[2023-05-07 10:26] LABS: Glycohemoglobin (HgbA1c) 5.6 % (4.0-5.6)
[2023-05-07] MEDS: ELIQUIS 2.5 MG PO ×2 (10:42→20:02)
[2023-05-07] MEDS: BETAPACE 80 MG PO (10:42)
[2023-05-07] MEDS: SENOKOT-S 2 TABLET PO ×2 (10:43→20:01)
[2023-05-07] MEDS: NAMENDA 5 MG PO ×2 (10:46→20:02)
[2023-05-07] MEDS: MAXIPIME 1000 MG IV ×2 (10:47→20:05)
[2023-05-07] MEDS: STERILE WATER FOR INJECTION 10 ML IV ×2 (10:47→20:05)
--- NOTE | 2023-05-07 11:19 | SUR.PHASEII ---
Clinical Swallow Evaluation
88F p/w impaired oropharyngeal swallow in the presence of AMS 2/2 UTI vs. shock. Aspiration risk is increased due to increased lethargy, poor orientation/following of commands, and altered mental status. Recommend puree (IDDSI 4) and moderately
thick liquids (IDDSI 3) via straw. Meds whole in puree. Full supervision and feeding assistance needed.
Recommendations:
1. Puree (IDDSI 4), moderately/honey thick liquids (IDDSI 3)
2. Meds whole in puree
3. FULL SUPERVISION AND ASSISTANCE
4. Oral care 3-5x day
5. Aspiration precautions
6. PATTERNMAKER BENCH service to follow up at the acute care level to assess diet level tolerance and upgrade as able
[2023-05-07] MEDS: CELEXA 10 MG PO (12:41)
[2023-05-07] MEDS: XANAX 0.5 MG PO ×2 (16:14→20:02)
[2023-05-07 16:40] LABS: Glucose - Point of Care 136 mg/dl (70-99)
[2023-05-07] MEDS: RISPERDAL 0.5 MG PO (20:05)
[2023-05-07 21:20] LABS: Glucose - Point of Care 103 mg/dl (70-99)
[2023-05-07] MEDS: LR 500 IV (23:00)
[2023-05-07] MEDS: ProAmatine 10 MG PO (23:00)
[2023-05-07] MEDS: BETAPACE PO (23:14)
[2023-05-08] VITALS (8 sets, daily range): BP systolic 101–161; BP diastolic 49–92
--- NOTE | 2023-05-08 02:04 | PTCARENOTE ---
Pts BP 78/48 manually- notified STITCHING DEPARTMENT SUPERVISOR- IVF and PRN midodrine ordered and given with positive results- BP improved to 101/49
[2023-05-08] MEDS: SYNTHROID 25 MCG PO (05:20)
[2023-05-08 07:25] LABS: % Basophils 0.6 % (0-2); % Eosinophils 3.5 % (0-6); % Immature Granulocytes 0.5 % (0-0.5); % Lymphocytes 15.1 % (20.5-51.1); % Monocytes 18.3 % (1.7-9.3); Absolute Eosinophils 0.2 10^3/uL (0-0.7); Absolute Lymphocytes 0.9 10^3/uL (1.2-3.4); Absolute Monocytes 1.1 10^3/uL (0.1-0.6); Absolute Neutrophils 3.9 10^3/uL (1.4-6.5); Hematocrit 32.5 % (37.0-47.0); Hemoglobin 10.7 g/dL (12.0-16.0); Mean Corp Hgb Conc. 32.9 g/dL (33.0-37.0); Mean Corpuscular Hgb 28.1 pg (27.0-31.0); Mean Corpuscular Volume 85.3 fL (81.0-99.0); Mean Platelet Volume 10.6 fL (7.4-10.4); Nucleated Red Blood Cells % 0 %; Platelet Count 202 10^3/uL (130-400); Red Blood Cell Count 3.81 10^6/uL (4.20-5.40); Red Cell Dist. Width 17.1 % (11.5-14.5); White Blood Cell Count 6.2 10^3/uL (4.8-10.8)
[2023-05-08 08:24] LABS: Glucose - Point of Care 101 mg/dl (70-99)
[2023-05-08 08:53] LABS: Blood Urea Nitrogen 15 mg/dl (7-17); Calcium 8.8 mg/dl (8.4-10.2); Carbon Dioxide 30 mmol/L (22-30); Chloride 102 mmol/L (98-107); Estimated Creatinine Clearance 50 ml/min; Glucose 92 mg/dl (70-99); Potassium 4.4 mmol/L (3.5-5.1); Sodium 136 mmol/L (135-145); eGFR > 60.00
--- NOTE | 2023-05-08 08:55 | PTOTSP ---
ST Follow-Up Note
Pt has shown signs of improvement in her oropharyngeal parameters; however, pt continues to present with mild oropharyngeal dysphagia characterized by prolonged mastication and bolus formation of solids as well as inadequate airway protection with
thin liquids via straw.
Recommendations:
- Upgrade diet to SOFT BITE SIZED SOLIDS with THIN LIQUIDS via cup ONLY; NO STRAWS
- Meds whole in puree as tolerated.
- Aspiration precautions.
- LEAD JAVA PROGRAMMER to continue to follow.
[2023-05-08] MEDS: NAMENDA 5 MG PO ×2 (08:59→20:19)
[2023-05-08] MEDS: BETAPACE 80 MG PO ×2 (08:59→20:18)
[2023-05-08] MEDS: ELIQUIS 2.5 MG PO ×2 (09:02→20:19)
[2023-05-08] MEDS: XANAX 0.5 MG PO ×3 (09:03→21:37)
[2023-05-08] MEDS: CELEXA 10 MG PO (09:03)
[2023-05-08] MEDS: RISPERDAL 0.25 MG PO (09:03)
[2023-05-08] MEDS: SENOKOT-S 2 TABLET PO ×2 (09:04→20:18)
[2023-05-08] MEDS: STERILE WATER FOR INJECTION 10 ML IV (09:05)
[2023-05-08] MEDS: MAXIPIME 1000 MG IV (09:06)
[2023-05-08 11:45] LABS: Glucose - Point of Care 126 mg/dl (70-99)
[2023-05-08] MEDS: KEFLEX 500 MG PO ×3 (13:26→21:37)
--- NOTE | 2023-05-08 13:35 | CM ---
Patient seen at bedside. Patient is a LTC patient at [facility]. [facility] admissions office is currently closed for president's day. Patient is from D unit there, CM spoke with Josephine from Admissions who indicated that functional information would be available
tomorrow. CM will continue to follow for discharge planning needs.
Plan; return to [facility]; confirm functional level when admissions available
--- NOTE | 2023-05-08 13:53 | W.PN.HOSP.TC ---
Today's Communication/Plan
-
CW ABX
Advance diet per METAL BONDING PRESS OPERATOR
Follow HR -if rate controlled will start dc plan
Assessment / Plan
Assessment / Plan
Change in mental status-suspect TME. Neurologically grossly nonfocal and CT head was negative on admission. Currently alert but nonverbal [patient has dementia-seem at baseline per daughter] she had hypotension admission with concerns for sepsis.
Shock requiring vasopressors suspected septic. Afebrile. No leukocytosis on admission. Abnormal urinalysis noted. Off of vasopressors now. HD stable.
Possible UTI-patient with abnormal urine analysis. Await urine culture. ID input noted-continue the abx per ID
Urothelial cells in the urine-check cytology
Dementia-currently without agitation. Continue her memory medication and antidepressants. Patient is also on scheduled risperidone and Ativan at long-term which I would continue
Paroxysmal atrial fibrillation-patient with intermittent rate elevaton . Continue with sotalol.
Primary hypertension-hold lisinopril due to hemodynamics. Resume as needed.
DNR
Anticipated Discharge: 24 - 48 hours
Subjective/Interval History
-
Date of Service: May 08, 2023
Patient is much more alert. Daughter at bedside. Sister improved. She has underlying dementia and cognitive impairment.
Poor historian because of cognitive dysfunction.
Patient being fed by her daughter which she is tolerating.
Objective Data
-
Labs:
Laboratory Results
05/08/23
06:19
WBC 6.2
Hgb 10.7 L
Hct 32.5 L
Plt Count 202
Sodium 136
Potassium 4.4
Chloride 102
Carbon Dioxide 30
BUN 15
Creatinine 0.7
Glucose 92
Calcium 8.8
Vital Signs:
Vital Signs
Temp Pulse Resp BP Pulse Ox
97.9 F 113 18 135/92 94
05/08/23 11:00 05/08/23 11:00 05/08/23 11:00 05/08/23 11:00 05/08/23 11:00
I&O
05/07/23 05/08/23 05/09/23
06:59 06:59 06:59
Intake Total 2421.4 / 2521.4 400 / 400
Output Total 420 / 420 750 / 750 700 / 700
Balance 2000.4 / 210.4 -350 / -350 -700 / -700
Review of Systems
-
Unable to obtain full review of systems at this time due to: Dementia
Physical Exam
-
General: No Apparent Distress
HEENT: Moist Mucous Membranes
Respiratory: Clear to Auscultation (anteriorly)
Cardiac: S1/S2, Irregular Rhythm and Tachycardic
GI: Soft
Neuro: Awake and Alert
Psych: Calm and Confused; Negative Agitated
Data Reviewed
-
Labs: Labs Reviewed by me
[2023-05-08 17:03] LABS: Glucose - Point of Care 124 mg/dl (70-99)
[2023-05-08] MEDS: LOPRESSOR 5 MG IV (18:24)
--- NOTE | 2023-05-08 19:49 | PTCARENOTE ---
Pt having periods of Rapid Afib rates 120s-150s, not sustaining bp stable no SOB or dizziness. MD aware, Later in shift Pt HR sustaining 130s-160s bp elevated 161/116, MD made aware, 5MG of IV lopressor given per orders, HR now 80s-100s, plan of
care ongoing.
[2023-05-08 21:09] LABS: Glucose - Point of Care 131 mg/dl (70-99)
[2023-05-08] MEDS: RISPERDAL 0.5 MG PO (21:37)
[2023-05-09 03:18] VITALS: BP 119/76
[2023-05-09] MEDS: SYNTHROID 25 MCG PO (06:03)
[2023-05-09 06:46] LABS: % Basophils 0.7 % (0-2); % Eosinophils 2.7 % (0-6); % Immature Granulocytes 0.3 % (0-0.5); % Lymphocytes 14.7 % (20.5-51.1); % Neutrophils 62.6 % (42.2-75.2); Absolute Basophils 0.1 10^3/uL (0-0.2); Absolute Eosinophils 0.2 10^3/uL (0-0.7); Absolute Monocytes 1.3 10^3/uL (0.1-0.6); Absolute Neutrophils 4.4 10^3/uL (1.4-6.5); Hematocrit 30.7 % (37.0-47.0); Hemoglobin 10.7 g/dL (12.0-16.0); Mean Corp Hgb Conc. 34.9 g/dL (33.0-37.0); Mean Corpuscular Volume 80.4 fL (81.0-99.0); Mean Platelet Volume 10.1 fL (7.4-10.4); Nucleated Red Blood Cells % 0 %; Platelet Count 221 10^3/uL (130-400); Red Blood Cell Count 3.82 10^6/uL (4.20-5.40); Red Cell Dist. Width 17.2 % (11.5-14.5)
[2023-05-09 07:00] VITALS: BP 134/88
[2023-05-09 07:39] LABS: Blood Urea Nitrogen 16 mg/dl (7-17); Carbon Dioxide 28 mmol/L (22-30); Chloride 103 mmol/L (98-107); Estimated Creatinine Clearance 58 ml/min; Glucose 127 mg/dl (70-99); Potassium 4.1 mmol/L (3.5-5.1); Sodium 136 mmol/L (135-145); eGFR > 60.00
[2023-05-09] MEDS: BETAPACE 80 MG PO ×2 (07:51→19:17)
[2023-05-09] MEDS: CELEXA 10 MG PO (07:51)
[2023-05-09] MEDS: ELIQUIS 2.5 MG PO ×2 (07:51→19:19)
[2023-05-09] MEDS: KEFLEX 500 MG PO ×3 (07:52→19:17)
[2023-05-09] MEDS: NAMENDA 5 MG PO ×2 (07:53→19:18)
[2023-05-09] MEDS: XANAX 0.5 MG PO ×2 (07:54→15:38)
[2023-05-09] MEDS: SENOKOT-S 2 TABLET PO ×2 (07:54→19:17)
[2023-05-09] MEDS: RISPERDAL 0.25 MG PO (07:54)
[2023-05-09 08:02] LABS: Glucose - Point of Care 128 mg/dl (70-99)
[2023-05-09 11:00] VITALS: BP 138/79
[2023-05-09 12:12] LABS: Glucose - Point of Care 161 mg/dl (70-99)
--- NOTE | 2023-05-09 13:48 | W.PN.HOSP.TC ---
Today's Communication/Plan
-
dc
Assessment / Plan
Assessment / Plan
Change in mental status-suspect TME. Neurologically grossly nonfocal and CT head was negative on admission. Remains alert alert but nonverbal [patient has dementia-seem at baseline per daughter] she had hypotension admission with concerns for
sepsis.
Shock requiring vasopressors suspected septic. Afebrile. No leukocytosis on admission. Abnormal urinalysis noted. Off of vasopressors now. HD stable.
Possible UTI-patient with abnormal urine analysis. Await urine culture. ID input noted-continue the abx per ID-switch to p.o. today
Urothelial cells in the urine-check cytology
Dementia-currently without agitation. Continue her memory medication and antidepressants. Patient is also on scheduled risperidone and Ativan at senior care which I would continue
Paroxysmal atrial fibrillation-rate controlled . Continue with sotalol.
Primary hypertension-resume lisinopril
DNR
Medically stable for dc back to [place]
Anticipated Discharge: Today
Subjective/Interval History
-
Date of Service: May 09, 2023
Constipated
No agitation overnight
Objective Data
-
Labs:
Laboratory Results
05/09/23
06:21
WBC 7.0
Hgb 10.7 L
Hct 30.7 L
Plt Count 221
Sodium 136
Potassium 4.1
Chloride 103
Carbon Dioxide 28
BUN 16
Creatinine 0.6
Glucose 127 H
Calcium 9.0
Vital Signs:
Vital Signs
Temp Pulse Resp BP Pulse Ox
97.8 F 60 18 138/79 93
05/09/23 11:00 05/09/23 11:00 05/09/23 11:00 05/09/23 11:00 05/09/23 11:00
I&O
05/08/23 05/09/23 05/10/23
06:59 06:59 06:59
Intake Total 400 / 400 0 / 0
Output Total 750 / 750 700 / 700
Balance -350 / -350 -700 / -700
Review of Systems
-
Unable to obtain full review of systems at this time due to: Dementia and Other (For historian due to)
Respiratory: Denies Trouble Breathing
Cardiac: Denies Chest Pain
Abdomen/GI: Denies Nausea or Vomiting
Physical Exam
-
General: Comfortable
HEENT: Moist Mucous Membranes
Respiratory: Clear to Auscultation
Cardiac: Regular Rhythm and S1/S2
GI: Soft and Nontender
Neuro: Awake and Alert
Psych: Calm and Confused; Negative Agitated
Data Reviewed
-
Labs: Labs Reviewed by me
--- NOTE | 2023-05-09 13:54 | W.DS.TRANS ---
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
-
Discharge Instructions:
Discharge Diagnosis/Procedures UTI, septic shock , TME
Diet Regular
Additional Diets Soft and bite sized
Activity As tolerated
Driving Restrictions No driving
Instructions:
Stand-Alone Forms:
Changes to Home Medications: Yes
Discharge Medications:
DC Medications w/original date entered in [employer]
furosemide 20 mg tablet 20 mg PO DAILY Fluid retention/Swelling 09/08/14
levothyroxine 25 mcg tablet 25 mcg PO DAILY Thyroid 09/09/14
sotalol 80 mg tablet 80 mg PO BID ##180 09/10/14
acetaminophen 500 mg tablet (Tylenol Extra Strength) 1,000 mg PO Q6HPRN PRN mild pain 07/10/19
alendronate 70 mg tablet 70 mg PO TH bone health 07/10/19
citalopram 20 mg tablet 10 mg PO DAILY Mental Health 07/10/19
lisinopril 20 mg tablet 40 mg PO DAILY Blood pressure 07/10/19
apixaban 2.5 mg tablet (Eliquis) 2.5 mg PO BID #60 tabs 07/14/19
acetaminophen 325 mg tablet (Tylenol) 650 mg PO Q4HPRN PRN fever 03/31/23
alprazolam 0.5 mg tablet (Xanax) 0.5 mg PO TID 03/31/23
bisacodyl 10 mg rectal suppository (Dulcolax (bisacodyl)) 10 mg ID [id number] PRN if no bm aftr mom 03/31/23
cholecalciferol (vitamin D3) 125 mcg (5,000 unit) tablet (Vitamin D3) 125 mcg PO MONTHLY 03/31/23
magnesium hydroxide 400 mg/5 mL oral suspension (Milk of Magnesia) 2,400 mg PO HSPRN PRN constipation 03/31/23
memantine 7 mg capsule sprinkle,extended release 24hr (Namenda XR) 7 mg PO DAILY 03/31/23
risperidone 0.25 mg tablet 0.25 mg PO DAILY 03/31/23
risperidone 0.5 mg tablet 0.5 mg PO HS 03/31/23
sennosides 8.6 mg-docusate sodium 50 mg capsule (Senna Plus) 2 tab-cap PO BID 03/31/23
cephalexin 500 mg capsule 500 mg PO QID #1 cap 05/09/23
Home Medication Changes
New medication-cephalexin
Pending Results: Yes
Total time spent discharging patient (in min): Urine cytology
[2023-05-09] MEDS: DULCOLAX 10 MG RECTAL (14:28)
--- NOTE | 2023-05-09 15:10 | CM ---
MD entered order for discharge.
Referral placed in care port.
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
Pt eval was not done in hospital.
Spoke with Cassandra Daughter she is in agreement with dc to [facility] today . Reviewed IMM she agrees with discharge today.
Requested ambulance transport. Medical nec form completed.
[facility]
report
fax [phone]
PLAN Return to [facility]
[2023-05-09 16:40] LABS: Glucose - Point of Care 115 mg/dl (70-99)
--- NOTE | 2023-05-09 17:03 | W.DCSUMMARY ---
Discharge Summary
Discharge Data
Date of Admission: 05/06/23
Date of Discharge: 05/09/23
-
Pending Results: No
Hospital Course
Primary diagnosis:
Change in mental status suspect due to toxic metabolic encephalopathy
Shock suspected septic
Urinary tract infection
Secondary diagnosis:
Dementia
Paroxysmal atrial fibrillation
DNR
Hospital course:
Patient was referred from local facility for change in mental status. Was noted to be hypotensive requiring vasopressors and was suspected septic. She was seen by ID felt possible UTI. She was growing Streptococcus not Enterococcus in the urine.
Was treated with antibiotics and resuscitated with fluids. She did not require much of pressors. She remained stable after. Medically changed to oral cephalexin on discharge. She had an associated change in mental status which was felt to TME
from a sepsis.
There was urothelial cells in the urine which could be secondary to UTI but a cytology was requested which is pending at the time of discharge.
With regards to dementia she was maintained on her home medication. With regards to paroxysmal atrial fibrillation she had rate control issues but settled down and did not need any new changes to her medication on discharge.
Consultants on board:
Infectious disease-Dr. Bloom
Discharge Plan
-
Patient Disposition: Senior Living/SNF
Discharge Diagnosis/Procedures: UTI, septic shock , TME
Diet: Regular
Additional Diets: Soft and bite sized
Activity: As tolerated
Driving Restrictions: No driving
Referrals:
Gopal Thakur DO [Family Provider] - in less than 1 week
Prescriptions:
New
cephalexin 500 mg Capsule
500 mg PO QID Qty: 1 0RF
Rx Instructions:
for 4 more days
Continued
furosemide 20 MG tablet
20 mg PO DAILY
levothyroxine 25 MCG tablet
25 mcg PO DAILY
sotalol 80 MG tablet
80 mg PO BID Qty: 180 3RF
lisinopril 20 MG tablet
40 mg PO DAILY
alendronate 70 MG tablet
70 mg PO TH
acetaminophen [Tylenol Extra Strength] 500 MG tablet
1,000 mg PO Q6HPRN PRN (Reason: mild pain)
citalopram 20 MG tablet
10 mg PO DAILY
Eliquis 2.5 MG tablet
2.5 mg PO BID Qty: 60 0RF
acetaminophen [Tylenol] 325 mg Tablet
650 mg PO Q4HPRN PRN (Reason: fever)
risperidone 0.25 mg Tablet
0.25 mg PO DAILY
alprazolam [Xanax] 0.5 mg Tablet
0.5 mg PO TID
magnesium hydroxide [Milk of Magnesia] 400 mg/5 mL Suspension
2,400 mg PO HSPRN PRN (Reason: constipation)
bisacodyl [Dulcolax (bisacodyl)] 10 mg Suppository
10 mg GA [id number] PRN (Reason: if no bm aftr mom)
risperidone 0.5 mg Tablet
0.5 mg PO HS
cholecalciferol (vitamin D3) [Vitamin D3] 125 mcg (5,000 unit) Tablet
125 mcg PO MONTHLY
Rx Instructions:
Monday of the month
memantine [Namenda XR] 7 mg Capsule,Sprinkle,Er 24hr
7 mg PO DAILY
Senna Plus 8.6-50 mg Capsule
2 tab-cap PO BID
Discharge Orders:
Discharge Patient (As Directed); Ordered 05/09/23
Ordered By: Neeraj Mock
--- NOTE | 2023-05-09 19:15 | PTCARENOTE ---
Addendum entered by Dayna Appiah RN 05/09/23 19:51:
This note was written by Dayna Appiah RN.
Original Note:
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 Pt changed, IVs removed, VSS 93% on RA prior to discharge bp 160/90, Report given to [facility] spoke with Margot. Pt left with two ambulance attendants and belongings.
== END 2023-05-09 19:45 | DRG 871 ==
LOC: 4 EAST ACU 04:00
PROVIDERS: Emergency Medicine; Internal Medicine; Nurse Practitioner Family; ADMITTING PHYSICIAN Internal Medicine; ATTENDING PHYSICIAN Internal Medicine; CONSULT PHYSICIAN Internal Medicine Infectious Disease; EMERGENCY PHYSICIAN Emergency Medicine; FAMILY PHYSICIAN Student in an Organized Health Care Education/Training Program; OTHER PHYSICIAN Internal Medicine Critical Care Medicine
DX: A41.9 Sepsis, unspecified organism (principal); G92.8 Other toxic encephalopathy; R65.21 Severe sepsis with septic shock; R57.1 Hypovolemic shock; N39.0 Urinary tract infection, site not specified; F03.94 Unspecified dementia, unspecified severity, with anxiety; F03.93 Unspecified dementia, unspecified severity, with mood disturbance; E87.1 Hypo-osmolality and hyponatremia; F05 Delirium due to known physiological condition; E87.4 Mixed disorder of acid-base balance; R64 Cachexia; I48.0 Paroxysmal atrial fibrillation; I10 Essential (primary) hypertension; Z66 Do not resuscitate; Z68.21 Body mass index [BMI] 21.0-21.9, adult; Z79.01 Long term (current) use of anticoagulants
CPT/HCPCS: 51701; 70450; 71045; 80048; 80053; 81003; 81015; 82533; 82805; 82962; 83036; 83605; 83735; 84439; 84443; 84481; 85025; 85027; 87040; 87070; 87086; 88112; 92526; 92610; 93005; 96361; 96374; 96375; 99285

== ENCOUNTER 2023-05-12 17:59 | Inpatient (IN) | payer OTHER, SELFPAY ==
[2023-05-12] VITALS (25 sets, daily range): BP systolic 68–112; BP diastolic 34–78; BMI 21.6; BMI 23.3
[2023-05-12 15:34] LABS: % Basophils 0.6 % (0-2); % Eosinophils 1.2 % (0-6); % Immature Granulocytes 0.4 % (0-0.5); % Lymphocytes 5.8 % (20.5-51.1); % Monocytes 7.8 % (1.7-9.3); % Neutrophils 84.2 % (42.2-75.2); Absolute Basophils 0.1 10^3/uL (0-0.2); Absolute Eosinophils 0.2 10^3/uL (0-0.7); Absolute Immature Granulocytes 0.1 10^3/uL (0-0.05); Absolute Lymphocytes 0.7 10^3/uL (1.2-3.4); Absolute Neutrophils 10.7 10^3/uL (1.4-6.5); Hematocrit 29.5 % (37.0-47.0); Mean Corp Hgb Conc. 33.9 g/dL (33.0-37.0); Mean Corpuscular Hgb 27.9 pg (27.0-31.0); Mean Corpuscular Volume 82.2 fL (81.0-99.0); Mean Platelet Volume 9.9 fL (7.4-10.4); Nucleated Red Blood Cells % 0 %; Platelet Count 244 10^3/uL (130-400); Red Blood Cell Count 3.59 10^6/uL (4.20-5.40); Red Cell Dist. Width 17.3 % (11.5-14.5); White Blood Cell Count 12.7 10^3/uL (4.8-10.8)
--- NOTE | 2023-05-12 15:37 | ED.GENMED ---
History of Present Illness
General
Chief Complaint: Blood Pressure Problem
Time Seen by Provider: 05/12/23 15:34
Travel History
Have you had any contact with someone who has COVID-19?: Unable to Answer
Do you have any symptoms of coronavirus? Fever > 100 degrees, chills, cough, shortness of breath, sore throat, loss of taste or smell, muscle aches, or headache?: Unable to Answer
History of Present Illness
History of Present Illness:
HPI: Patient presents by ambulance from [facility] related to low blood pressure concerns�was 70s/40s at the facility. She was recently discharged from [facility] from UTI/sepsis. She is normally oriented only to self at baseline.
EXAM:
GENERAL: Appears in no distress but she is hypotensive
HEENT: Slightly dry oral mucosa
CARDIOVASCULAR: Regular rate and rhythm
PULMONARY: No respiratory distress, breathing is nonlabored, equal and clear breath sounds
ABDOMEN: Soft and nontender with no peritoneal signs
NEUROLOGIC: The patient has evidence of dementia, she keeps her eyes open but does not have much of any response to painful stimuli, she does not follow any commands, she is nonverbal
EXTREMITIES: Moves all extremities equally, no tenderness, no edema, some chronic deformities noted to the toes, no definite sign of infection, no cellulitis
PYSCHIATRIC: Very limited historian, insight and judgment untestable
ED COURSE:
3:40 PM: I initially evaluated patient
NUMBER AND COMPLEXITY OF PROBLEMS ADDRESSED AT THE ENCOUNTER
� Chronic conditions affecting care: SDAT, A-fib, CHF, high blood pressure, anxiety/depression, pacemaker 2015
� Acute Exacerbation and/or Progression of Chronic Illness: This is a recurring problem recently
� Differential Diagnosis includes: Sepsis, hypovolemia, electrolyte abnormality, failure to thrive
AMOUNT AND/OR COMPLEXITY OF DATA TO BE REVIEWED AND ANALYZED
� I performed an independent evaluation of and my interpretation is:
EKG: A-fib 73, demand V paced
CT:
X-rays: I personally reviewed x-ray and see no clear evidence of infection
Laboratory Studies: White count 12.7, potassium 2.7, lactic 1.4
Other:
� Review of other/old records: I reviewed last discharge summary including urine culture that grew Streptococcus/not Enterococcus greater than 100,000 CFU's per mL and blood cultures were negative. She was briefly on pressors in
addition to fluids last admission.
� Clinical information was obtained by an independent historian: I spoke to the daughter over the phone at 4:50 PM
� Prescriptions/Medications Considered but not given:
� Further testing considered but not performed:
RISK OF COMPLICATIONS AND/OR MORBIDITY OR MORTALITY OF PATIENT MANAGEMENT
� Social determinants of health affecting care: Resides at [facility]
� Discussion with other providers: Hospitalist for admission at 4:50 PM
� Escalation of care including admission/observation vs risk of discharge considered: The patient is likely septic. She was recently treated for septic shock last admission and briefly received pressors last admission. Her
white count is higher than last admission and she is hypotensive again with pressures of 70s over 30s. She was given IV fluids here, however the patient does have a history of CHF. Repeat blood pressure is 80/50 with a MAP of 62. I did discuss
care with daughter over the phone and she did make it clear that she is to be DNR/DNI however would like her to be treated for reversible causes.
Past History
Past History
ED Past Medical History: Arrthythmia (Atrial fibrillation), CHF, HTN, Hypercholesterolemia, Hypothyroidism and Psychiatric (ANXIETY); Negative CAD
ED Past Surgical History: Appendectomy, Cardiac (Pacemaker) and Gynecological (Hysterectomy, breast lumpectomy)
Social History
Tobacco: Non-smoker
Alcohol: Occasional
Drug: None
Personal:
Living: with family
Employment: Retired
Family History
Family History: Other (Noncontributory)
Phy Exam
Physical Exam
Physical Exam:
See HPI
Course
Orders/Labs/Results
Orders:
Orders
05/12/23 Dinner
IDDSI 4 - Pureed
At Your Request: Limited Participation
Liquid Modification: Thin Liquids
Special Instructions: No Straws
05/12/23 15:25
Complete Blood Count/With Diff Urgent
05/12/23 15:38
Straight cath- Treatment ONCE
05/12/23 15:39
0.9% Sodium Chloride 1000 ml [Nss] 1,000 ml IV BOLUS
CR Chest Portable - 1 View Urgent
Comment:
Reason For Exam: hypotension
Reason Study Needs to be Portable: Patient Unstable
05/12/23 16:01
Lactic Acid Q4H
Comment: CANCEL 2nd LACTIC ACID IF 1st LACTIC ACID IS LESS THAN 2
Blood Culture Q30M
ALEXIA Source: Blood/Venous
Specimen Description:
Blood Culture Q30M
ALEXIA Source: Blood/Venous
Specimen Description:
05/12/23 16:09
Comprehensive Metabolic Panel Urgent
Magnesium Urgent
Comment: ADD ON
05/12/23 16:26
Urinalysis Reflex To Culture Urgent
Date Specimen was Collected: 05/12/23
Time Specimen was Collected: 15:41
Urine Microscopic Reflex Cult Urgent
Urine Culture Urgent
ALEXIA Source: U
Specimen Description:
Date Specimen was Collected: 05/12/23
Time Specimen was Collected: 15:41
05/12/23 16:29
Electrocardiogram (*1) Urgent
Reason for Study: Other
Other Reason for Exam: low bp
EKG- Treatment ONCE
05/12/23 16:39
0.9% Sodium Chloride 500 ml [Nss] 500 ml IV BOLUS
05/12/23 16:41
Add On- LAB Urgent
Tests Added?: magnesium
05/12/23 16:55
POTASSIUM PHOSPHATE 1mEq=0.7mM [Potassium Phosphate] 40 meq 0.9% Sodium Chloride 250 ml [Nss] 250 ml IV NOW
05/12/23 17:35
Magnesium Sulfate 1 grams 0.9% Sodium Chloride 100 ml [Nss] 100 ml IV NOW
Potassium Chloride Powder [Klor-Con] 40 meq PO NOW STA
05/12/23 17:39
An Catheter [Catheter- Indwelling] As Directed
Reason for insertion: Acute Retention
Discontinue Date/Time: 05/15/23 0600
05/12/23 17:41
0.9% Sodium Chloride 1000 ml [Nss] 1,000 ml IV BOLUS
05/12/23 17:45
NORepinephrine 4 MG/250 ML [Levophed] 4 mg in 250 ml IV PER PROTOCOL
Initial dose in mcg/min, then titrate:: 4
Titrate to keep:: SBP > 90 mmHg
Titrate by mcg/min:: 1-2 mcg/min
Frequency of titrations (minutes):: 5
Maximum dose in ICU in mcg/min:: 30
Maximum dose in IMU in mcg/min:: 8
Maximum dose in IVU in mcg/min:: 4
Begin to taper infusion when:: Remained at goal for 4hrs
Taper by mcg/min:: 1-2 mcg/min
Frequency of taper (minutes) if patient maintains goal:: 30
Taper to off?: Yes
If infusion off & no longer maintaining goal:: Contact Provider
05/12/23 17:46
Admit/Transfer Patient As Directed
Co-Sign Provider:
Level of Care: Inpatient admission
Assign to:: ICU
Physician / Group: Kim
Diagnosis: hypotension, possible sepsis
Reason for Hospitalization: pressors, IV abx
Expected length of stay greater than two midnights?: Yes
ELOS- Estimated Length of Stay in days: 3
I certify the patient meets the requirements for IP care: Yes
05/12/23 17:49
Code Status As Directed
Resuscitation Status: Do not resuscitate
Reached after discussion with pt or family/Healthcare POA: Yes
DNR Bracelet Application ONCE
05/12/23 18:04
COVID-19 Antigen Stat
Source: Nasal Swab
05/12/23 22:00
Potassium Urgent
Abnormal Lab Results
05/12/23 05/12/23 05/12/23
15:25 16:09 16:26
WBC 12.7 H 10^3/uL
(4.8-10.8)
RBC 3.59 L 10^6/uL
(4.20-5.40)
Hgb 10.0 L g/dL
(12.0-16.0)
Hct 29.5 L %
(37.0-47.0)
RDW 17.3 H %
(11.5-14.5)
Abs Immat Gran (auto) 0.1 H 10^3/uL
(0-0.05)
Absolute Neuts (auto) 10.7 H 10^3/uL
(1.4-6.5)
Absolute Lymphs (auto) 0.7 L 10^3/uL
(1.2-3.4)
Absolute Monos (auto) 1.0 H 10^3/uL
(0.1-0.6)
Neutrophils % 84.2 H %
(42.2-75.2)
Lymphocytes % 5.8 L %
(20.5-51.1)
Potassium 2.7 L* mmol/L
(3.5-5.1)
Creatinine 0.5 L mg/dL
(0.6-1.0)
Glucose 100 H mg/dl
(70-99)
Calcium 7.9 L mg/dl
(8.4-10.2)
Total Protein 4.8 L g/dl
(6.3-8.2)
Albumin 2.1 L g/dl
(3.5-5.0)
Urine Bilirubin 1+ A
(Negative)
Leukocyte Esterase Rfl Trace A
(Negative)
Urine Bacteria (Reflex) Many A
(Negative)
05/12/23 15:25
05/12/23 16:09
Vital Signs
Initial and Last Documented VS:
Initial Vital Signs
Pulse Resp Pulse Ox
90 16 94
05/12/23 15:12 05/12/23 15:12 05/12/23 15:12
Last Documented Vital Signs
Temp Pulse Resp BP Pulse Ox
98.8 F 88 16 77/41 97
05/12/23 15:13 05/12/23 18:00 05/12/23 18:00 05/12/23 17:39 05/12/23 18:00
*Critical Care Note
Total Time (30-74mins, 75-104mins- exclusive of procedures): Not Applicable
ED Attending Note
-
Portions of this chart may have been created with voice recognition software.� Occasional wrong word or��sound alike� substitutions may have occurred due to the inherent limitations of voice recognition software.
Discharge Plan
Departure
Patient Disposition: Admit
Date of Disposition: 05/12/23
Time of Disposition: 16:49
Presentation/result/management discussed w/ accepting MD/DO: Hospitalist
Discharge Problem:
Acute hypokalemia
Interventions
Interventions:
*Risk Screen - Suicide Last Done: 05/12/23 15:20
*General Assessment Last Done: 05/12/23 15:20
*Neglect/Abuse Screening Last Done: 05/12/23 15:20
*ED COVID-19 Vaccine History Last Done: 05/12/23 15:20
ED- Cardiac Assessment Last Done: 05/12/23 15:30
ED- Neurological Assessment Last Done: 05/12/23 15:30
ED- Pulmonary Assessment Last Done: 05/12/23 15:30
[2023-05-12] MEDS: NSS 1000 IV ×2 (15:52→17:49)
[2023-05-12 16:21] LABS: Lactic Acid 1.4 mmol/L (0.7-2.0)
[2023-05-12 16:34] LABS: Urine Albumin Trace (Neg - Trace); Urine Bilirubin 1+ (Negative); Urine Character Clear (Clear); Urine Color Yellow; Urine Glucose Negative (Negative); Urine Ketone Negative (Negative); Urine Leukocyte Trace (Negative); Urine Nitrite Negative (Negative); Urine Occult Blood Negative (Negative); Urine Specific Gravity 1.015 (<1.030); Urine Urobilinogen Negative (Neg - 1+)
[2023-05-12 16:37] LABS: ALT (SGPT) 14 U/L (0-35); AST (SGOT) 18 U/L (14-36); Albumin 2.1 g/dl (3.5-5.0); Alkaline Phosphatase 56 U/L (38-126); Blood Urea Nitrogen 13 mg/dl (7-17); Calcium 7.9 mg/dl (8.4-10.2); Carbon Dioxide 26 mmol/L (22-30); Chloride 105 mmol/L (98-107); Glucose 100 mg/dl (70-99); Potassium 2.7 mmol/L (3.5-5.1); Sodium 136 mmol/L (135-145); Total Bilirubin 0.4 mg/dl (0.2-1.3); Total Protein 4.8 g/dl (6.3-8.2); eGFR > 60.00
[2023-05-12 16:44] LABS: Urine Mucus Many; Urine Squamous Cell 21-25 /LPF (Few)
[2023-05-12 16:45] LABS: Urine Bacteria Many (Negative); Urine Red Blood Cell 0-2 /HPF (0-2)
[2023-05-12] MEDS: NSS 500 IV (16:56)
[2023-05-12 16:59] LABS: Magnesium 1.7 mg/dl (1.6-2.3)
[2023-05-12] MEDS: POTASSIUM PHOSPHATE 259.090899999999976 MEQ IV (17:13)
--- NOTE | 2023-05-12 17:54 | HPS.HSE ---
Addendum entered and electronically signed by Areli Alvarez MD 05/12/23 18:08:
I saw and examined the patient.
The MOTORS AND CONTROLS TESTER or PA's note was reviewed and I agree with the note.
Comment:
88-year-old female with advanced dementia presented with increasing lethargy/change in mental status.� Unable to obtain history from the patient.� On admission to the emergency room, she was found to have hypotension and hypokalemia.� Patient will
recently was in the hospital for sepsis/septic shock with hypotension.� She received antibiotic, IV fluid and pressure support.� Her blood sugar improved and she was discharged on blood pressure medications.
Physical Exam
General: Other (no acute distress, conversant)
HEENT: Moist mucous membranes and PERRLA
Respiratory: Clear; No Wheezes, Rales or Rhonchi
Cardiac: S1/S2 and Regular Rhythm; No Murmur
GI: Soft, Non Distended, Normal Bowel Sounds.
Musculoskeletal: No Clubbing, No Cyanosis and No Edema
Neuro: AO x 3, followed commands. Psych: Calm; No agitation.
Assessment and plan
#Septic shock, possible source is urinary tract infection or others..�
No history of GI symptoms.� No hypoxia.� No skin rash.� No history of headache or fevers
Admit the patient to the hospital, start the patient on broad-spectrum antibiotic, chest x-ray, blood culture, monitor input and output, An catheter to assess for retention.
Pressure support with IV fluid and Levophed.� Hold blood pressure medications.
# Hypokalemia.� Replace IV and oral.� No history of diarrhea.
# Advanced dementia, nonspecific type.
#Paroxysmal atrial fibrillation, continue with rate control medication.� Continue with anticoagulation.� No history of bleeding
#Primary hypertension.� Hold blood pressure medication due to hypotension# hypothyroidism, continue with Synthroid
# History of bradycardia
#History of pneumonia
Total time spent to see the patient, examine the patient on the floor, review data and lab results, discuss treatment plan with patient, nursing staff, ER doctor around 75 minutes
Original Note:
Family Physician
-
Family Physician: Gopal Thakur DO
Chief Complaint
-
Hypotension
History of Present Illness
Pt is an 88yo F w/ a PMH HTN, HLD, CHF, Paroxysmal AFib, Hypothyroidism, and Advanced Dementia who is presented to the ED via EMS from [facility] after having low blood pressure in the 70s/40s. The patient is a very limited historian and was
only able to say, 'Do you have anything to eat.' The patient was unable to provide any additional details. Per our records, she was discharged from on 05/09/23 after being admitted on 05/06 for suspected Sepsis secondary to UTI. Her
anti-hypertensive medications were held during her hospitalizations, and resumed at time of discharge. She was discharged to completed a coarse of cephalexin for which she should have one day remaining.
Medical History
Past Medical History
Past Medical History: Reports Other
Additional Past Medical History:
Paroxysmal Atrial Fibrillation
Essential Hypertension
Dementia
Anxiety/Depression
Hypothyroidism
Osteoporosis
Past Surgical History: Reports Other (Unknown)
Social History
Unable to obtain full social history at this time due to: Dementia
Family History
Family History: Unable to Obtain
Allergies / Home Medications
Allergies reflects when Allergies were last updated in [email or web address].
Home Medications with original date entered in [email or web address]
Allergy/Medication List:
Allergies
Allergy/AdvReac Type Severity Reaction Status Date / Time
carbamazepine [From Tegretol] Allergy hypertension, Verified 05/05/23 22:19
pain
codeine [Codeine] Allergy upset Verified 05/05/23 22:19
stomach
morphine Allergy Unknown Verified 05/05/23 22:19
Penicillins Allergy Hives Verified 05/05/23 22:19
sulfamethoxazole Allergy 'burning Verified 05/05/23 22:19
[From Bactrim] inside
whole body'
tramadol Allergy Unknown Verified 05/05/23 22:19
trimethoprim [From Bactrim] Allergy 'burning Verified 05/05/23 22:19
inside
whole body'
Home Medications
furosemide 20 mg tablet 20 mg PO DAILY Fluid retention/Swelling 09/08/14
acetaminophen 500 mg tablet (Tylenol Extra Strength) 1,000 mg PO Q6HPRN PRN mild pain 07/10/19
alendronate 70 mg tablet 70 mg PO TH bone health 07/10/19
lisinopril 20 mg tablet 40 mg PO DAILY Blood pressure 07/10/19
acetaminophen 325 mg tablet (Tylenol) 650 mg PO Q4HPRN PRN fever>100.4 03/31/23
alprazolam 0.5 mg tablet (Xanax) 0.5 mg PO TID@0830,1330,1830 03/31/23
bisacodyl 10 mg rectal suppository (Dulcolax (bisacodyl)) 10 mg SC [id number] PRN if no bm aftr mom 03/31/23
magnesium hydroxide 400 mg/5 mL oral suspension (Milk of Magnesia) 2,400 mg PO HSPRN PRN constipation 03/31/23
memantine 7 mg capsule sprinkle,extended release 24hr (Namenda XR) 7 mg PO DAILY 03/31/23
risperidone 0.25 mg tablet 0.25 mg PO DAILY 03/31/23
risperidone 0.5 mg tablet 0.5 mg PO QPM 03/31/23
sennosides 8.6 mg-docusate sodium 50 mg capsule (Senna Plus) 2 tab-cap PO QPM 03/31/23
cephalexin 500 mg capsule 500 mg PO QID #1 cap 05/09/23
acetaminophen 650 mg rectal suppository 650 mg SC Q4H PRN fever 05/12/23
apixaban 2.5 mg tablet (Eliquis) 2.5 mg PO BID@0830,1830 05/12/23
cholecalciferol (vitamin D3) 1,250 mcg (50,000 unit) capsule 1,250 mcg PO MONTHLY 05/12/23
citalopram 10 mg tablet 10 mg PO DAILY 05/12/23
levothyroxine 50 mcg tablet 50 mcg PO DAILY@0630 05/12/23
sotalol 80 mg tablet 80 mg PO BID@0830,1830 05/12/23
Review of Systems
-
Unable to obtain full review of systems at this time due to: Dementia
Physical Exam
Vital Signs
Vital Signs
Temp Pulse Resp BP Pulse Ox
98.8 F 73 21 77/41 95
05/12/23 15:13 05/12/23 17:45 05/12/23 17:45 05/12/23 17:39 05/12/23 17:45
Physical Exam
General: No Apparent Distress, Appears Chronically Ill and Other (Appears pale)
HEENT: Anicteric and Moist mucous membranes
Respiratory: Clear and Non Labored Respirations
Cardiac: S1/S2 and Irregular Rhythm; No Tachycardia
GI: Soft and Non Tender
Genito-urinary: Other (Palpable bladder)
Musculoskeletal: No Clubbing and No Cyanosis
Skin: Warm and Dry
Neuro: Awake, Alert and Other (Only minimally verbal; Unable to participate in neurologic evaluation)
Laboratory Results
-
05/12/23 15:25
Laboratory Results
Lactic Acid Cancelled 05/12/23 19:45
Total Bilirubin 0.4 mg/dl (0.2-1.3) 05/12/23 16:09
AST 18 U/L (14-36) 05/12/23 16:09
ALT 14 U/L (0-35) 05/12/23 16:09
Alkaline Phosphatase 56 U/L (38-126) 05/12/23 16:09
Data Reviewed
-
Lab Data: Labs Reviewed by me
Old Records: Reviewed
Impression/Plan
-
Hypotension, concern for recurrent Septic Shock though unclear source of infections
-Continue IVFs
-Start Levophed
-Start empiric vancomycin and cefepime
-Await urine and blood cultures
Hypokalemia
-Hold furosemide
-Replace potassium IV and PO (if patient will take oral meds)
-Give 1gm magnesium as level is on the low side
-Recheck potassium level later this evening
Paroxysmal Atrial Fibrillation
-Continue Eliquis for anticoagulation
-Continue Sotalol for rhythm control
Dementia
-Continue Namenda
-Continue Risperdal and citalopram
-Hold Xanax for now
Dysphagia
-Continue pureed solids with thin liquids
Hypothyroidism
-Continue levothyroxine
DVT proph: Eliquis
Code Status: DNR/DNI
[2023-05-12] MEDS: LEVOPHED 250 IV (17:58)
[2023-05-12] MEDS: KLOR-CON 40 MEQ PO (18:16)
[2023-05-12] MEDS: MAGNESIUM SULFATE 102 GRAMS IV (18:20)
[2023-05-12 18:30] LABS: COVID-19 Antigen Negative (Negative)
--- NOTE | 2023-05-12 19:38 | PHA.VAN.IN ---
Assessment
- Assessment
Renal Function: Appears similar to baseline
Concomitant Antimicrobials: cefepime
Plan
- Plan
Initial / Loading Dose: vanc 1250mg pending administration
Maintenance Regimen: dosing by level
Monitoring: random level 05/13 06
Pharmacokinetics Vancomycin I
- -
Patient Age: 88
Patient Sex: Female
Vancomycin Day #: 1
Indication: Other
Requesting Provider: Michelle Gutierrez
Pertinent Antimicrobial Allergies:
penicillin - hives (tolerated cefazolin, ceftriaxone, cefepime, cephalexin)
trimethoprim/sulfamethoxazole - 'burning inside whole body'
Height / Weight:
Height 5 ft 4 in
Actual Weight 57 kg
- Vital Signs / Lab Results
Temp Pulse Resp BP Pulse Ox
98.8 F 78 15 68/52 94
05/12/23 15:13 05/12/23 19:15 05/12/23 19:15 05/12/23 19:15 05/12/23 19:00
Lab Results - Hematology
05/12/23
15:25
WBC 12.7 H
Lab Results - Chemistry
05/12/23 05/12/23
15:25 16:09
BUN Cancelled 13
Creatinine Cancelled 0.5 L
Estimated Creat Clear Cancelled
Albumin Cancelled 2.1 L
05/12/23 05/12/23
16:01 19:45
Lactic Acid 1.4 Cancelled
Lab Results - Urine
05/12/23
16:26
Urine Nitrite (Reflex) Negative
Leukocyte Esterase Rfl Trace A
Urine WBC (Reflex) 6-10
Ur Squamous Epith Cells 21-25
Urine Bacteria (Reflex) Many A
--- NOTE | 2023-05-12 19:49 | W.PN.SEPSIS ---
Sepsis
Vital Signs
Temp Pulse Resp BP Pulse Ox
98.8 F 78 15 68/52 94
05/12/23 15:13 05/12/23 19:15 05/12/23 19:15 05/12/23 19:15 05/12/23 19:00
Physical Exam
Physical Exam:
A focused exam was performed after fluid resuscitation.
Capillary Refill
Bilateral Upper Extremity:
Oscar Time: Less than 3 sec
Bilateral Lower Extremity:
Oscar Time: Less than 3 sec
Pulse Evaluation
Bilateral Radial:
Pulse Evaluation: Present
Bilateral Dorsalis Pedis:
Pulse Evaluation: Present
[2023-05-12] MEDS: VANCOCIN 275 MG IV (21:00)
[2023-05-12] MEDS: MAXIPIME 2000 MG IV (21:01)
[2023-05-12] MEDS: ELIQUIS 2.5 MG PO (21:01)
[2023-05-12] MEDS: BETAPACE 80 MG PO (21:01)
[2023-05-12] MEDS: STERILE WATER FOR INJECTION 10 ML IV (21:01)
[2023-05-12] MEDS: RISPERDAL 0.5 MG PO (21:53)
--- NOTE | 2023-05-12 22:07 | PTCARENOTE ---
Received pt ~1930 from ED to ICU 3371. Pt. oriented to self only, speaks very few words. Able to tell me her name, yes and no to some questions and asked for a blanket. Follows simple commands some of the time. ALMANZAR but weak. Bed alarm on. Afib with
PVCs on tele, HR 70s-80s. On levophed gtt to maintain SBP>90. Received on 4mcg from ED. + pulses, no edema. Afebrile. On RA, lungs dim with crackles bibasilar. Spo2 94%. + bowel sounds. Took pills in applesauce without issue. An in place draining
yellow urine. Skin pale with scattered bruising, daphne UEs. R FA #18 with levo, 2 #22s in L FA. Mouth care provided. Turning q2
Son and daughter in law at bedside and updated on plan of care.
[2023-05-12 23:54] LABS: Potassium 4.4 mmol/L (3.5-5.1)
[2023-05-13] VITALS (20 sets, daily range): BP systolic 92–159; BP diastolic 54–95; BMI 22.1
--- NOTE | 2023-05-13 01:22 | PTCARENOTE ---
Pt. trying to get OOB and pulling at elizabeth catheter. RESPIRATORY SUPPORT TECHNICIAN notified, restraints ordered. Pt. resting on and off. Remains on 1-2 mcg levophed.
[2023-05-13] MEDS: MAXIPIME 2000 MG IV ×3 (03:38→20:30)
[2023-05-13] MEDS: STERILE WATER FOR INJECTION 10 ML IV ×3 (03:38→20:30)
[2023-05-13 04:59] LABS: Hematocrit 26.4 % (37.0-47.0); Hemoglobin 8.9 g/dL (12.0-16.0); Mean Corp Hgb Conc. 33.7 g/dL (33.0-37.0); Mean Corpuscular Hgb 27.9 pg (27.0-31.0); Mean Corpuscular Volume 82.8 fL (81.0-99.0); Mean Platelet Volume 10.3 fL (7.4-10.4); Platelet Count 231 10^3/uL (130-400); Red Blood Cell Count 3.19 10^6/uL (4.20-5.40); Red Cell Dist. Width 17.5 % (11.5-14.5); White Blood Cell Count 8.2 10^3/uL (4.8-10.8)
[2023-05-13 05:10] LABS: INR 1.39; PT 16.8 Sec (11.4-14.6)
[2023-05-13 05:11] LABS: APTT 45.6 Sec (23.4-35.0)
[2023-05-13 05:21] LABS: Blood Urea Nitrogen 11 mg/dl (7-17); Calcium 8.2 mg/dl (8.4-10.2); Carbon Dioxide 27 mmol/L (22-30); Chloride 106 mmol/L (98-107); Estimated Creatinine Clearance 58 ml/min; Glucose 112 mg/dl (70-99); Potassium 4.7 mmol/L (3.5-5.1); Sodium 136 mmol/L (135-145); eGFR > 60.00
[2023-05-13 05:30] LABS: Vancomycin Random 13.3 ug/ml
[2023-05-13] MEDS: SYNTHROID 50 MCG PO (05:46)
[2023-05-13] MEDS: NSS 1000 IV ×2 (05:48→18:01)
--- NOTE | 2023-05-13 06:20 | W.PN.HOSP.TC ---
Today's Communication/Plan
-
.
Assessment / Plan
Assessment / Plan
88-year-old female with advanced dementia presented with increasing lethargy/change in mental status.� Unable to obtain history from the patient.� On admission to the emergency room, she was found to have hypotension and hypokalemia.� Patient will
recently was in the hospital for sepsis/septic shock with hypotension.� She received antibiotic, IV fluid and pressure support.� Her blood sugar improved and she was discharged on blood pressure medications.
Physical Exam
General: Other (no acute distress, not very conversant)
HEENT: Moist mucous membranes and PERRLA
Respiratory: limited, No Wheezes, Rales or Rhonchi
Cardiac: S1/S2
GI: Soft, Non Distended, Normal Bowel Sounds.
+ An.
Musculoskeletal: No Clubbing, No Cyanosis and No Edema
Neuro: Awake, alert sometimes, non verbal mostly , did not followed commands.
Psych: Calm; No agitation, apparent dementia.
#Septic shock, possible source is urinary tract infection or others.
Negative lactic acid on admission.
She is better today. She is off Levophed. Leukocytosis resolved. No fever. Seems more alert. Nonverbal most times at baseline.
No history of GI symptoms.� No hypoxia.� No skin rash.� No history of headache or fevers
Continue with empiric antibiotics for another 24 hours. Follow-up with cultures. If cultures negative, then she will meet criteria of SIRS.
# Hypokalemia.� Presented with potassium 2.7. Potassium 4.7. Status post replacement therapy with potassium. � No history of diarrhea.
# Advanced dementia, nonspecific type. No agitation. Continue home medications including Risperdal.
#Paroxysmal atrial fibrillation, continue with rate control medication.� Continue with anticoagulation.� No history of bleeding
#Primary hypertension.� Restart blood pressure medications slowly as blood pressure tolerates
# hypothyroidism, continue with Synthroid
# History of bradycardia
#History of pneumonia. Chest x-ray on admission no evidence of pneumonia. Showed mild cardiogenic versus noncardiogenic congestive changes.
# 12 mm nodular opacity in the right mid to upper lung zone.
Total time spent to see the patient, examine the patient on the floor, review data and lab results, discuss treatment plan with patient, nursing staff around 55 minutes
Anticipated Discharge: > 48 hours
Subjective/Interval History
-
Date of Service: May 13, 2023
Uneventful night. No agitation. No fevers
Off Levophed
Objective Data
-
Labs:
Laboratory Results
05/12/23 05/13/23
23:25 03:43
WBC 8.2
Hgb 8.9 L
Hct 26.4 L
Plt Count 231
PT 16.8 H
INR 1.39
APTT 45.6 H
Sodium 136
Potassium 4.4 D 4.7
Chloride 106
Carbon Dioxide 27
BUN 11
Creatinine 0.5 L
Glucose 112 H
Calcium 8.2 L
Vital Signs:
Vital Signs
Temp Pulse Resp BP Pulse Ox
97.4 F 60 13 121/81 95
05/13/23 04:40 05/13/23 05:45 05/13/23 05:45 05/13/23 05:30 05/13/23 05:45
I&O
05/11/23 05/12/23 05/13/23
06:59 06:59 06:59
Intake Total 966.4 / 966.4
Output Total 260 / 260
Balance 706.4 / 706.4
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
--- NOTE | 2023-05-13 08:08 | PHA.VAN.FU ---
Vancomycin Assessment / Plan
- Assessment
Renal Function: Stable
WBC's are: Trending Down
In the past 24 hrs, patient has been: Afebrile
Concomitant Antimicrobials: CEFEPIME
- Assessment - Therapeutic Drug Monitoring
Random Level: 13.3
- Dosing Plan
Dosing by Level: Re-dose today (750MG)
- Monitoring Plan
Random Level: 05/14 IN AM
- Follow Up
Pharmacy will continue to follow.
Vancomycin Follow UP
- -
Patient Age: 88
Patient Sex: Female
Vancomycin Day #: 2
Indication: Other
Requesting Provider: Michelle Gutierrez
Pertinent Antimicrobial Allergies:
penicillin - hives (tolerated cefazolin, ceftriaxone, cefepime, cephalexin)
trimethoprim/sulfamethoxazole - 'burning inside whole body'
Height / Weight:
Height 5 ft 2 in
Actual Weight 58.3 kg
- Vital Signs / Lab Results
Temp Pulse Resp BP Pulse Ox
97.4 F 66 14 101/75 97
05/13/23 07:39 05/13/23 06:45 05/13/23 06:45 05/13/23 06:00 05/13/23 06:45
Lab Results - Hematology
05/12/23 05/13/23
15:25 03:43
WBC 12.7 H 8.2
Lab Results - Chemistry
05/12/23 05/12/23 05/13/23
15:25 16:09 03:43
BUN Cancelled 13 11
Creatinine Cancelled 0.5 L 0.5 L
Estimated Creat Clear Cancelled 58
Albumin Cancelled 2.1 L
05/12/23 05/12/23
16:01 19:45
Lactic Acid 1.4 Cancelled
Lab Results - Urine
05/12/23
16:26
Urine Nitrite (Reflex) Negative
Leukocyte Esterase Rfl Trace A
Ur Squamous Epith Cells -
Therapeutic Drug Monitoring
Random Vancomycin 13.3 ug/ml 05/13/23 03:43
[2023-05-13] MEDS: BETAPACE 80 MG PO ×2 (08:35→20:19)
[2023-05-13] MEDS: ELIQUIS 2.5 MG PO ×2 (08:36→20:19)
[2023-05-13] MEDS: RISPERDAL 0.25 MG PO (08:36)
[2023-05-13] MEDS: CELEXA 10 MG PO (08:36)
[2023-05-13] MEDS: NAMENDA 5 MG PO ×2 (08:37→20:21)
[2023-05-13] MEDS: VANCOCIN 150 IV (11:10)
[2023-05-13] MEDS: RISPERDAL 0.5 MG PO (17:30)
[2023-05-14] VITALS (8 sets, daily range): BP systolic 123–169; BP diastolic 70–91; PULSE 67; O2SAT 92; BMI 23.8
[2023-05-14] MEDS: NSS 1000 IV (03:26)
[2023-05-14] MEDS: STERILE WATER FOR INJECTION 10 ML IV ×3 (04:33→20:33)
[2023-05-14] MEDS: MAXIPIME 2000 MG IV ×3 (04:33→20:34)
[2023-05-14] MEDS: SYNTHROID 50 MCG PO (05:25)
--- NOTE | 2023-05-14 05:32 | PTCARENOTE ---
Pt noted with audible expiratory wheezing, lung sounds bilaterally with inspiratory and expiratory wheezing upon auscultation. POX 96% 3 L NC RR 20 HR 68- House PBX TEACHER aware.
--- NOTE | 2023-05-14 05:54 | W.PN.UPDATE ---
Update Note
Progress Note Update
RN notified LIVING ADVISOR, patient with increase in inspiratory and expiratory wheezed, stable VS otherwise. Afebrile. Will order one dose of Duoneb. Will continue to monitor.
[2023-05-14] MEDS: DUONEB 3 ML INH (05:58)
[2023-05-14 07:42] LABS: Hematocrit 26.6 % (37.0-47.0); Hemoglobin 9.2 g/dL (12.0-16.0); Mean Corp Hgb Conc. 34.6 g/dL (33.0-37.0); Mean Corpuscular Hgb 28.7 pg (27.0-31.0); Mean Corpuscular Volume 82.9 fL (81.0-99.0); Mean Platelet Volume 11.8 fL (7.4-10.4); Platelet Count 154 10^3/uL (130-400); Red Blood Cell Count 3.21 10^6/uL (4.20-5.40); Red Cell Dist. Width 17.1 % (11.5-14.5); White Blood Cell Count 7.5 10^3/uL (4.8-10.8)
[2023-05-14 07:56] LABS: Vancomycin Random 9.9 ug/ml
[2023-05-14 08:09] LABS: Blood Urea Nitrogen 12 mg/dl (7-17); Calcium 8.7 mg/dl (8.4-10.2); Carbon Dioxide 23 mmol/L (22-30); Chloride 107 mmol/L (98-107); Estimated Creatinine Clearance 53 ml/min; Glucose 120 mg/dl (70-99); Potassium 4.8 mmol/L (3.5-5.1); Sodium 135 mmol/L (135-145); eGFR > 60.00
--- NOTE | 2023-05-14 08:13 | PHA.VAN.FU ---
Vancomycin Assessment / Plan
- Assessment
Renal Function: Stable
WBC's are: Trending Down
In the past 24 hrs, patient has been: Afebrile
Concomitant Antimicrobials: CEFEPIME
- Assessment - Therapeutic Drug Monitoring
Random Level: 9.9
- Dosing Plan
Adjust Regimen to: 1000MG Q24H
New Regimen Predicts: AUC (512), Peak (35.2), Trough (11.6)
- Monitoring Plan
No level(s) ordered at this time: CONSIDER AT [facility]
- Follow Up
Pharmacy will continue to follow.
Vancomycin Follow UP
- -
Patient Age: 88
Patient Sex: Female
Vancomycin Day #: 3
Indication: Other
Requesting Provider: Michelle Gutierrez
Pertinent Antimicrobial Allergies:
penicillin - hives (tolerated cefazolin, ceftriaxone, cefepime, cephalexin)
trimethoprim/sulfamethoxazole - 'burning inside whole body'
Height / Weight:
Height 5 ft 2 in
Actual Weight 59.052 kg
- Vital Signs / Lab Results
Temp Pulse Resp BP Pulse Ox
97.5 F 67 19 123/70 97
05/14/23 07:30 05/14/23 07:30 05/14/23 07:30 05/14/23 07:30 05/14/23 07:30
Lab Results - Hematology
05/12/23 05/13/23 05/14/23
15:25 03:43 07:25
WBC 12.7 H 8.2 7.5
Lab Results - Chemistry
05/12/23 05/12/23 05/13/23
15:25 16:09 03:43
BUN Cancelled 13 11
Creatinine Cancelled 0.5 L 0.5 L
Estimated Creat Clear Cancelled 58
Albumin Cancelled 2.1 L
05/14/23
07:25
BUN 12
Creatinine 0.4 L
Estimated Creat Clear 53
Albumin
05/12/23 05/12/23
16:01 19:45
Lactic Acid 1.4 Cancelled
Microbiology Results
05/12/23 16:01 Blood Culture - Preliminary
Blood/Venous No Growth in 24 hours- Final report to follow
05/12/23 16:01 Blood Culture - Preliminary
Blood/Venous No Growth in 24 hours- Final report to follow
05/12/23 16:26 Urine Culture - Final
Urine NO GROWTH
Therapeutic Drug Monitoring
Random Vancomycin 9.9 ug/ml 05/14/23 07:25
[2023-05-14] MEDS: BETAPACE 80 MG PO ×2 (09:25→20:13)
[2023-05-14] MEDS: ELIQUIS 2.5 MG PO ×2 (09:26→20:12)
[2023-05-14] MEDS: NAMENDA 5 MG PO ×2 (09:26→20:11)
[2023-05-14] MEDS: CELEXA 10 MG PO (09:26)
[2023-05-14] MEDS: FLUSH (NSS) 1 FLUSH IV (09:27)
[2023-05-14] MEDS: RISPERDAL 0.25 MG PO (09:27)
[2023-05-14] MEDS: VANCOCIN 200 IV (09:27)
--- NOTE | 2023-05-14 10:25 | W.PN.HOSP.TC ---
Addendum entered and electronically signed by Areli Alvarez MD 05/14/23 18:29:
Addendum
d/w high risk case manager. NH not ready to take her. PT ok with HH or SNF but likely can go to her level.
d/w nurse, able to wean down to 1 liter O2.
dc An
dc on hold
Total time spent to see the patient, examine the patient on the floor, review data and lab results, discuss treatment plan with patient, daughter, high risk case manager, nursing staff around 55 minutes
End
Original Note:
Today's Communication/Plan
-
dc
Assessment / Plan
Assessment / Plan
88-year-old female with advanced dementia presented with increasing lethargy/change in mental status.� Unable to obtain history from the patient.� On admission to the emergency room, she was found to have hypotension and hypokalemia.� Patient will
recently was in the hospital for sepsis/septic shock with hypotension.� She received antibiotic, IV fluid and pressure support.� Her blood sugar improved and she was discharged on blood pressure medications.
Physical Exam
General: Other (no acute distress, not very conversant)
HEENT: Moist mucous membranes and PERRLA
Respiratory: limited, No Wheezes, Rales or Rhonchi
Cardiac: S1/S2
GI: Soft, Non Distended, Normal Bowel Sounds.
+ An.
Musculoskeletal: No Clubbing, No Cyanosis and No Edema
Neuro: Awake, alert sometimes, non verbal mostly , did not followed commands.
Psych: Calm; No agitation, apparent dementia.
#SIRS
No source of infection found. Possible medications induced hypotension which resulted in SIRS features
Blood and urine cultures are no growth
Negative lactic acid on admission.
She is at her baseline. Leukocytosis resolved. No fever. Nonverbal most times at baseline.
No GI symptoms.� No hypoxia.� No skin rash.� No history of headache or fevers. Chest xray no PNA> No cough.
s/p 3 days of empiric antibiotics. S.
# Hypokalemia.� Presented with potassium 2.7. Potassium 4.7. Status post replacement therapy with potassium. � No history of diarrhea.
# Advanced dementia, nonspecific type. No agitation. Continue home medications including Risperdal.
#Paroxysmal atrial fibrillation, continue with rate control medication.� Continue with anticoagulation.� No history of bleeding
#Primary hypertension.� 2 admissions with hypotension. Patient has advanced dementia, low oral intake. She has been experiencing low blood pressure. Per daughter, she had congestive heart failure in the past. Last echo in 2028 showed normal left
ventricular function. Patient has not had congestive heart failure admission for years. Will change lisinopril to 10 mg as needed. Will change Lasix to 20 mg daily with holding parameter.
# hypothyroidism, continue with Synthroid
# History of bradycardia
#History of pneumonia. Chest x-ray on admission no evidence of pneumonia. Showed mild cardiogenic versus noncardiogenic congestive changes.
# 12 mm nodular opacity in the right mid to upper lung zone.
Total discharge time spent to see the patient, examine the patient on the floor, review data and lab results, discuss discharge plan with patient, nursing staff around 67 minutes
Anticipated Discharge: Today
Subjective/Interval History
-
Date of Service: May 14, 2023
No fevers
No hypotension
Objective Data
-
Labs:
Laboratory Results
05/14/23
07:25
WBC 7.5
Hgb 9.2 L
Hct 26.6 L
Plt Count 154 D
Sodium 135
Potassium 4.8
Chloride 107
Carbon Dioxide 23
BUN 12
Creatinine 0.4 L
Glucose 120 H
Calcium 8.7
Vital Signs:
Vital Signs
Temp Pulse Resp BP Pulse Ox
97.5 F 67 19 123/70 97
05/14/23 07:30 05/14/23 07:30 05/14/23 07:30 05/14/23 07:30 05/14/23 07:30
I&O
05/13/23 05/14/23 05/15/23
06:59 06:59 06:59
Intake Total 1216.4 / 1216.4 1290 / 1290
Output Total 450 / 450 1275 / 1275
Balance 766.4 / 766.4
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
[2023-05-14] MEDS: FLUSH (NSS) 2 FLUSH IV (13:10)
[2023-05-14] MEDS: RISPERDAL 0.5 MG PO (17:38)
[2023-05-15 03:20] VITALS: BP 155/79
[2023-05-15 04:22] VITALS: BMI 23.5
[2023-05-15] MEDS: STERILE WATER FOR INJECTION 10 ML IV ×3 (04:32→21:55)
[2023-05-15] MEDS: MAXIPIME 2000 MG IV ×3 (04:32→21:55)
[2023-05-15] MEDS: VANCOCIN 200 IV (05:07)
[2023-05-15] MEDS: SYNTHROID 50 MCG PO (05:08)
[2023-05-15 07:25] VITALS: BP 121/60
--- NOTE | 2023-05-15 07:34 | PTCARENOTE ---
Pt with high bps throughout the night, [employer] aware.
[2023-05-15] MEDS: BETAPACE 80 MG PO ×2 (08:48→22:19)
[2023-05-15] MEDS: NAMENDA 5 MG PO ×2 (08:49→21:51)
[2023-05-15] MEDS: ELIQUIS 2.5 MG PO ×2 (08:49→21:51)
[2023-05-15] MEDS: RISPERDAL 0.25 MG PO (08:49)
[2023-05-15] MEDS: CELEXA 10 MG PO (08:50)
--- NOTE | 2023-05-15 09:48 | PHA.VAN.FU ---
Vancomycin Assessment / Plan
- Assessment
Renal Function: Stable
WBC's are: WNL
In the past 24 hrs, patient has been: Afebrile
Concomitant Antimicrobials: cefepime
- Dosing Plan
Continue: Vanc 1000mg Q24H
- Monitoring Plan
No level(s) ordered at this time: consider levels in next few days
- Follow Up
Pharmacy will continue to follow.
Vancomycin Follow UP
- -
Patient Age: 88
Patient Sex: Female
Vancomycin Day #: 4
Indication: Other
Requesting Provider: Michelle Gutierrez
Pertinent Antimicrobial Allergies:
penicillin - hives (tolerated cefazolin, ceftriaxone, cefepime, cephalexin)
trimethoprim/sulfamethoxazole - 'burning inside whole body'
Height / Weight:
Height 5 ft 2 in
Actual Weight 58.287 kg
- Vital Signs / Lab Results
Temp Pulse Resp BP Pulse Ox
97.7 F 65 18 121/60 95
05/15/23 07:25 05/15/23 08:48 05/15/23 07:25 05/15/23 08:48 05/15/23 07:25
Lab Results - Hematology
05/12/23 05/13/23 05/14/23
15:25 03:43 07:25
WBC 12.7 H 8.2 7.5
Lab Results - Chemistry
05/12/23 05/12/23 05/13/23
15:25 16:09 03:43
BUN Cancelled 13 11
Creatinine Cancelled 0.5 L 0.5 L
Estimated Creat Clear Cancelled 58
Albumin Cancelled 2.1 L
05/14/23
07:25
BUN 12
Creatinine 0.4 L
Estimated Creat Clear 53
Albumin
05/12/23 05/12/23
16:01 19:45
Lactic Acid 1.4 Cancelled
Microbiology Results
05/12/23 16:01 Blood Culture - Preliminary
Blood/Venous No Growth in 48 hours- Final report to follow
05/12/23 16:01 Blood Culture - Preliminary
Blood/Venous No Growth in 48 hours- Final report to follow
05/12/23 23:22 MRSA Screen - Final
Nose No Methicillin Resistant Staphylococcus aureus isolated.
05/12/23 16:26 Urine Culture - Final
Urine NO GROWTH
Therapeutic Drug Monitoring
Random Vancomycin 9.9 ug/ml 05/14/23 07:25
[2023-05-15 11:05] VITALS: BP 164/82
--- NOTE | 2023-05-15 14:41 | W.PN.HOSP.TC ---
Today's Communication/Plan
-
Ct A/P
Restart lisinopril at 20 mg dose, Lasix
Wean oxygen as tolerated
Assessment / Plan
Assessment / Plan
88-year-old female with advanced dementia presented with increasing lethargy/change in mental status.� Unable to obtain history from the patient.� On admission to the emergency room, she was found to have hypotension and hypokalemia.� Patient was
recently was in the hospital for sepsis/septic shock with hypotension.� Source was felt to be UTI she was treated with antibiotics and fluids. Antibiotics were changed to Keflex for discharge. Patient was brought back to the hospital because her
blood pressure was 70s over 40s at the facility. Patient was readmitted.
On examination apparent dementia
Cardiovascular system S1-S2 irregular
Chest clear to auscultation
Abdomen soft and nontender
No pedal edema
�
#SIRS
No source of infection found. Possible medications induced hypotension which resulted in SIRS features
Blood and urine cultures are no growth
Negative lactic acid on admission.
She is at her baseline. Leukocytosis resolved. No fever. Nonverbal most times at baseline.
No GI symptoms.� No hypoxia.� No skin rash.� No history of headache or fevers. Chest xray no PNA> No cough.
s/p 3 days of empiric antibiotics.
# Anemia-check iron studies
# Hypokalemia.� Presented with potassium 2.7. Status post replacement therapy with potassium. � No history of diarrhea.
# Advanced dementia, nonspecific type. No agitation. Continue home medications including Risperdal. Memantine
#Paroxysmal atrial fibrillation, continue with rate control medication.� Continue with anticoagulation.� No history of bleeding
History of cardioversions in the past
Continue sotalol, Eliquis
# Pacemaker
#Primary hypertension.� 2 admissions with hypotension. Patient has advanced dementia, low oral intake. She has been experiencing low blood pressure. Per daughter, she had congestive heart failure in the past. Last echo in 2028 showed normal left
ventricular function. Patient has not had congestive heart failure admission for years. Will change lisinopril to 10 mg to 5 mg Will change Lasix to 20 mg daily with holding parameter.
# Hypothyroidism, continue with Synthroid
# History of bradycardia
#History of pneumonia. Chest x-ray on admission no evidence of pneumonia. Showed mild cardiogenic versus noncardiogenic congestive changes.
# 12 mm nodular opacity in the right mid to upper lung zone.Daughter aware
# Hypoalbuminemia
# Anxiety-continue Xanax, Celexa
# History of lumpectomy left breast
# DVT phylaxis-Eliquis
D/W RN at bed side
D/W Daughter
Anticipated Discharge: Within 24 hours
Subjective/Interval History
-
Date of Service: May 15, 2023
Objective Data
-
Vital Signs:
Vital Signs
Temp Pulse Resp BP Pulse Ox
97.5 F 62 18 164/82 95
05/15/23 11:05 05/15/23 11:05 05/15/23 11:05 05/15/23 11:05 05/15/23 11:05
I&O
05/14/23 05/15/23 05/16/23
06:59 06:59 06:59
Intake Total 1290 / 1290 800 / 800
Output Total 1275 / 1275 800 / 800
Balance 15 / 15 0 / 0
[2023-05-15 15:20] VITALS: BP 156/85
[2023-05-15] MEDS: LASIX 20 MG PO (16:50)
[2023-05-15] MEDS: ZESTRIL 20 MG PO (16:50)
[2023-05-15] MEDS: SENOKOT-S 2 TABLET PO (16:52)
[2023-05-15] MEDS: RISPERDAL 0.5 MG PO (16:52)
[2023-05-15 19:46] VITALS: BP 139/85
--- NOTE | 2023-05-15 23:00 | PTCARENOTE ---
O2 sat @ 2230 88%. Pt refused to have O2 applied, shouting loudly 'N0'. In same way refused to have attends changed - was incont of very lg amt Ua. Earlier refused meds in applesauce. Now allowing care to be given although states 'goodby' when
objecting to care. O2 applied @ this time; pox 95% on 2L.
[2023-05-15 23:34] VITALS: BP 157/86
[2023-05-16] VITALS (8 sets, daily range): BP systolic 116–139; BP diastolic 55–83; O2SAT 92; BMI 22.2
[2023-05-16] MEDS: MAXIPIME 2000 MG IV ×2 (04:57→12:24)
[2023-05-16] MEDS: STERILE WATER FOR INJECTION 10 ML IV ×2 (04:57→12:23)
[2023-05-16] MEDS: VANCOCIN 200 IV (04:58)
[2023-05-16] MEDS: SYNTHROID 50 MCG PO (04:59)
[2023-05-16] MEDS: NAMENDA 5 MG PO ×2 (08:00→20:32)
[2023-05-16] MEDS: BETAPACE 80 MG PO ×2 (08:00→20:32)
[2023-05-16] MEDS: LASIX 20 MG PO (08:01)
[2023-05-16] MEDS: RISPERDAL 0.25 MG PO (08:01)
[2023-05-16] MEDS: ELIQUIS 2.5 MG PO ×2 (08:01→20:33)
[2023-05-16] MEDS: ZESTRIL 20 MG PO (08:01)
[2023-05-16] MEDS: CELEXA 10 MG PO (08:01)
--- NOTE | 2023-05-16 08:36 | PHA.VAN.FU ---
Vancomycin Assessment / Plan
- Assessment
Renal Function: No New Labs Today
In the past 24 hrs, patient has been: Afebrile
Concomitant Antimicrobials: cefepime
- Dosing Plan
Continue: Vanc 1000mg Q24H
- Monitoring Plan
No level(s) ordered at this time: will hold off on levels for now
- Follow Up
Pharmacy will continue to follow.
Vancomycin Follow UP
- -
Patient Age: 88
Patient Sex: Female
Vancomycin Day #: 5
Indication: Other
Requesting Provider: Michelle Gutierrez
Pertinent Antimicrobial Allergies:
penicillin - hives (tolerated cefazolin, ceftriaxone, cefepime, cephalexin)
trimethoprim/sulfamethoxazole - 'burning inside whole body'
Height / Weight:
Height 5 ft 2 in
Actual Weight 55.026 kg
- Vital Signs / Lab Results
Temp Pulse Resp BP Pulse Ox
97.9 F 90 18 120/65 96
05/16/23 03:14 05/16/23 08:00 05/16/23 03:14 05/16/23 08:00 05/16/23 03:14
Lab Results - Hematology
05/14/23
07:25
WBC 7.5
Lab Results - Chemistry
05/14/23
07:25
BUN 12
Creatinine 0.4 L
Estimated Creat Clear 53
Microbiology Results
05/12/23 16:01 Blood Culture - Preliminary
Blood/Venous No Growth in 72 hours- Final report to follow
05/12/23 16:01 Blood Culture - Preliminary
Blood/Venous No Growth in 72 hours- Final report to follow
05/12/23 23:22 MRSA Screen - Final
Nose No Methicillin Resistant Staphylococcus aureus isolated.
Therapeutic Drug Monitoring
Random Vancomycin 9.9 ug/ml 05/14/23 07:25
--- NOTE | 2023-05-16 15:48 | W.PN.HOSP.TC ---
Today's Communication/Plan
-
USS chest
Assessment / Plan
Assessment / Plan
88-year-old female with advanced dementia presented with increasing lethargy/change in mental status.� Unable to obtain history from the patient.� On admission to the emergency room, she was found to have hypotension and hypokalemia.� Patient was
recently was in the hospital for sepsis/septic shock with hypotension.� Source was felt to be UTI she was treated with antibiotics and fluids. Antibiotics were changed to Keflex for discharge. Patient was brought back to the hospital because her
blood pressure was 70s over 40s at the facility. Patient was readmitted.
On examination apparent dementia
Cardiovascular system S1-S2 irregular
Chest clear to auscultation, DECREASED AT BASES.
Abdomen soft and nontender
No pedal edema
CT of the abdomen and pelvis-no hydronephrosis or hydroureter or kidney stones. Moderate concentric thickening of the wall of the urinary bladder, small to moderate bilateral pleural effusions, cholelithiasis, diverticuli, mild lumbar
dextroscoliosis mild lumbar DDD
�
# Small to moderate pleural effusions-check ultrasound to make sure not significant. Patient did receive IV fluids. Will give a dose of Lasix now .
On daily Lasix as OP.
#SIRS
No source of infection found. Possible medications induced hypotension which resulted in SIRS features
Blood and urine cultures are no growth
Negative lactic acid on admission.
She is at her baseline. Leukocytosis resolved. No fever. Nonverbal most times at baseline.
No GI symptoms.� No hypoxia.� No skin rash.� No history of headache or fevers. Chest xray no PNA> No cough.
s/p 3 days of empiric antibiotics.
# Anemia-check iron studies
# Hypokalemia.� Presented with potassium 2.7. Status post replacement therapy with potassium. � No history of diarrhea.
# Advanced dementia, nonspecific type. No agitation. Continue home medications including Risperdal. Memantine
#Paroxysmal atrial fibrillation, continue with rate control medication.� Continue with anticoagulation.� No history of bleeding
History of cardioversions in the past
Continue sotalol, Eliquis
# Pacemaker
#Primary hypertension.� 2 admissions with hypotension. Patient has advanced dementia, low oral intake. She has been experiencing low blood pressure. Per daughter, she had congestive heart failure in the past. Last echo in 2028 showed normal left
ventricular function. Patient has not had congestive heart failure admission for years. Changed lisinopril to 40 mg to 20 mg . Lasix to 20 mg daily with holding parameter.
# Hypothyroidism, continue with Synthroid
# History of bradycardia
#History of pneumonia. Chest x-ray on admission no evidence of pneumonia. Showed mild cardiogenic versus noncardiogenic congestive changes.
# 12 mm nodular opacity in the right mid to upper lung zone.Daughter aware. OP CT
# Hypoalbuminemia
# Cholelithiasis
# Anxiety-continue Xanax, Celexa
# Lumbar DDD
# History of lumpectomy left breast
# DVT phylaxis-Eliquis
Anticipated Discharge: Within 24 hours
Subjective/Interval History
-
Date of Service: May 16, 2023
Objective Data
-
Vital Signs:
Vital Signs
Temp Pulse Resp BP Pulse Ox
98.5 F 63 18 127/71 96
05/16/23 11:10 05/16/23 11:10 05/16/23 11:10 05/16/23 11:10 05/16/23 11:10
I&O
05/15/23 05/16/23 05/17/23
06:59 06:59 06:59
Intake Total 800 / 800 420 / 420
Output Total 800 / 800
Balance 0 / 0 420 / 420
[2023-05-16] MEDS: LASIX 40 MG IV (15:59)
--- NOTE | 2023-05-16 16:56 | CM ---
Addendum entered by Lillie Jackson 05/16/23 17:03:
BLS Auth.# [id number] through [facility]
Original Note:
CM following re: d/c planning
Chart reviewed
Pt not medically stable for d/c
Auth obtained to return to SNF however will likely need to be adjusted since patient remains in hospital
Pt is a LTC patient at [facility] and Josephine called for a status update and was informed patient received auth.
CM will continue to follow patient progress and assist with continued needs at d/c as indicated
PLAN; d/c to [facility]
Report: [id number]

Pt approved for 5 days SNF level 1
SOC 05/15/23 with NRD 05/19/23
Auth# [id number]
Concurrent reviews can be called into
[2023-05-16] MEDS: RISPERDAL 0.5 MG PO (17:21)
[2023-05-16] MEDS: SENOKOT-S 2 TABLET PO (17:21)
[2023-05-16 17:28] LABS: Blood Urea Nitrogen 16 mg/dl (7-17); Carbon Dioxide 37 mmol/L (22-30); Chloride 92 mmol/L (98-107); Estimated Creatinine Clearance 46 ml/min; Glucose 121 mg/dl (70-99); Iron 39 ug/dl (37-170); Sodium 135 mmol/L (135-145); eGFR > 60.00
[2023-05-16 17:37] LABS: Percent Saturation 14 % (20-50); Total Iron Binding Capacity 267 ug/dl (265-497)
[2023-05-16 18:17] LABS: Vitamin B12 879 pg/ml (239-931)
[2023-05-17 03:55] VITALS: BP 143/74
[2023-05-17] MEDS: SYNTHROID 50 MCG PO (05:37)
[2023-05-17 06:00] VITALS: BMI 21.3
[2023-05-17 07:00] VITALS: BP 132/77
[2023-05-17] MEDS: ZESTRIL 20 MG PO (09:21)
[2023-05-17] MEDS: LASIX 20 MG PO (09:21)
[2023-05-17] MEDS: BETAPACE 80 MG PO ×2 (09:21→21:25)
[2023-05-17] MEDS: NAMENDA 5 MG PO ×2 (09:22→21:25)
[2023-05-17] MEDS: RISPERDAL 0.25 MG PO (09:22)
[2023-05-17] MEDS: ELIQUIS 2.5 MG PO ×2 (09:22→21:26)
[2023-05-17] MEDS: CELEXA 10 MG PO (09:22)
[2023-05-17] MEDS: COLACE 100 MG PO ×2 (10:55→21:25)
[2023-05-17] MEDS: MIRALAX 17 GRAMS PO (10:56)
[2023-05-17] MEDS: FEOSOL 325 MG PO (10:56)
[2023-05-17 11:00] VITALS: BP 143/64
[2023-05-17 15:00] VITALS: BP 139/76
--- NOTE | 2023-05-17 16:21 | W.PN.HOSP.TC ---
Today's Communication/Plan
-
IV Lasix
Thoracentesis
Echo
Add on proBNP
Assessment / Plan
Assessment / Plan
88-year-old female with advanced dementia presented with increasing lethargy/change in mental status.� On admission to the emergency room, she was found to have hypotension and hypokalemia.� Patient was recently was in the hospital for
sepsis/septic shock with hypotension.� Source was felt to be UTI she was treated with antibiotics and fluids. Antibiotics were changed to Keflex for discharge. Patient was brought back to the hospital because her blood pressure was 70s over 40s at
the facility. Patient was readmitted.
On examination apparent dementia
Cardiovascular system S1-S2 irregular
Chest clear to auscultation, DECREASED AT BASES.
Abdomen soft and nontender
No pedal edema
CT of the abdomen and pelvis-no hydronephrosis or hydroureter or kidney stones. Moderate concentric thickening of the wall of the urinary bladder, small to moderate bilateral pleural effusions, cholelithiasis, diverticuli, mild lumbar
dextroscoliosis mild lumbar DDD
�
# Moderate to large pleural effusions-Lasix 40 IV BID
Unclear if related to CHF
Other differentials include malignancy
Unlikely infection
IR consult for thoracentesis
Discussed with the patient's daughter regarding benefits and risks for thoracentesis. She wishes to proceed
Interestingly the chest x-ray on 05/12/2023 without significant effusion
Check fluid studies including culture and cytology (nodular opacity)
#SIRS
No source of infection found. Possible medications induced hypotension which resulted in SIRS features
Blood and urine cultures are no growth
Negative lactic acid on admission.
She is at her baseline. Leukocytosis resolved. No fever. Nonverbal most times at baseline.
No GI symptoms.� No hypoxia.� No skin rash.� No history of headache or fevers. Chest xray no PNA> No cough.
s/p 3 days of empiric antibiotics.
# Anemia-mild iron deficiency
-Start p.o. iron
# Hypokalemia.� Presented with potassium 2.7. Status post replacement therapy with potassium. � No history of diarrhea.
# Advanced dementia, nonspecific type. No agitation. Continue home medications including Risperdal. Memantine
#Paroxysmal atrial fibrillation, continue with rate control .� Continue with anticoagulation.�
History of cardioversions in the past
Continue sotalol, Eliquis
# Pacemaker
#Primary hypertension.� 2 admissions with hypotension. Patient has advanced dementia, low oral intake. She has been experiencing low blood pressure.
#Per daughter, she had congestive heart failure in the past. Last echo in 2018 showed normal left ventricular function. Patient has not had congestive heart failure admission for years. Changed lisinopril to 40 mg to 20 mg .
Type of chf Unclear
Possibly diastolic
Check ECHO
# Hypothyroidism, continue with Synthroid
# History of bradycardia
#History of pneumonia. Chest x-ray on admission no evidence of pneumonia. Showed mild cardiogenic versus noncardiogenic congestive changes.
# 12 mm nodular opacity in the right mid to upper lung zone.Daughter aware. OP CT
# Hypoalbuminemia
# Cholelithiasis
# Anxiety-continue Xanax, Celexa
# Lumbar DDD
# History of lumpectomy left breast
# DVT phylaxis-Eliquis
D/W RN
Discussed with daughter and updated.
D/W Case management
Anticipated Discharge: 24 - 48 hours
Subjective/Interval History
-
Date of Service: May 17, 2023
Objective Data
-
Vital Signs:
Vital Signs
Temp Pulse Resp BP Pulse Ox
98.2 F 80 20 139/76 95
05/17/23 15:00 05/17/23 15:00 05/17/23 15:00 05/17/23 15:00 05/17/23 15:00
I&O
05/16/23 05/17/23 05/18/23
06:59 06:59 06:59
Intake Total 420 / 420 240 / 240
Balance 420 / 420 240 / 240
[2023-05-17] MEDS: LASIX 40 MG IV (17:11)
[2023-05-17] MEDS: SENOKOT-S 2 TABLET PO (17:13)
[2023-05-17] MEDS: RISPERDAL 0.5 MG PO (17:15)
[2023-05-17 17:19] LABS: LDH 203 U/L (120-246); Total Protein 6.2 g/dl (6.3-8.2)
[2023-05-17 17:30] LABS: NT-proBNP 4370 pg/ml
[2023-05-17 19:49] VITALS: BP 154/86
[2023-05-17 23:55] VITALS: BP 111/58
[2023-05-18] VITALS (21 sets, daily range): BP systolic 74–136; BP diastolic 54–103; PULSE 2–109; BMI 20.6
[2023-05-18] MEDS: SYNTHROID 50 MCG PO (07:17)
[2023-05-18 08:24] LABS: Hematocrit 34.1 % (37.0-47.0); Hemoglobin 11.5 g/dL (12.0-16.0); Mean Corp Hgb Conc. 33.7 g/dL (33.0-37.0); Mean Corpuscular Hgb 27.1 pg (27.0-31.0); Mean Corpuscular Volume 80.4 fL (81.0-99.0); Mean Platelet Volume 9.2 fL (7.4-10.4); Platelet Count 391 10^3/uL (130-400); Red Blood Cell Count 4.24 10^6/uL (4.20-5.40); Red Cell Dist. Width 16.1 % (11.5-14.5); White Blood Cell Count 5.7 10^3/uL (4.8-10.8)
[2023-05-18 08:25] LABS: Blood Urea Nitrogen 19 mg/dl (7-17); Carbon Dioxide 37 mmol/L (22-30); Chloride 93 mmol/L (98-107); Estimated Creatinine Clearance 46 ml/min; Glucose 118 mg/dl (70-99); Potassium 3.5 mmol/L (3.5-5.1); Sodium 135 mmol/L (135-145); eGFR > 60.00
[2023-05-18] MEDS: BETAPACE 80 MG PO (08:38)
[2023-05-18] MEDS: FEOSOL 325 MG PO (08:39)
[2023-05-18] MEDS: ELIQUIS 2.5 MG PO (08:39)
[2023-05-18] MEDS: NAMENDA 5 MG PO (08:39)
[2023-05-18] MEDS: COLACE 100 MG PO (08:39)
[2023-05-18] MEDS: ZESTRIL 20 MG PO (08:39)
[2023-05-18] MEDS: LASIX 40 MG IV (08:40)
[2023-05-18] MEDS: MIRALAX 17 GRAMS PO (08:40)
[2023-05-18] MEDS: RISPERDAL 0.25 MG PO (08:40)
[2023-05-18] MEDS: CELEXA 10 MG PO (08:40)
--- NOTE | 2023-05-18 10:32 | W.PN.HOSP.TC ---
Today's Communication/Plan
-
Transfer to IMU
Start antibiotics for aspiration
Check troponin
Continue BiPAP
Speech eval
Pulmonary and cardiology consultation
Levophed to keep MAP over 65 mmHg
Assessment / Plan
Assessment / Plan
88-year-old female with advanced dementia presented with increasing lethargy/change in mental status.� On admission to the emergency room, she was found to have hypotension and hypokalemia.� Patient was recently was in the hospital for
sepsis/septic shock with hypotension.� Source was felt to be UTI she was treated with antibiotics and fluids. Antibiotics were changed to Keflex for discharge. Patient was brought back to the hospital because her blood pressure was 70s over 40s at
the facility. Patient was readmitted.
Cyanosis
Cardiovascular system S1-S2 irregular
Chest clear to auscultation, diminished at bases
Abdomen soft and nontender
No pedal edema
CT of the abdomen and pelvis-no hydronephrosis or hydroureter or kidney stones. Moderate concentric thickening of the wall of the urinary bladder, small to moderate bilateral pleural effusions, cholelithiasis, diverticuli, mild lumbar
dextroscoliosis mild lumbar DDD
#Called to see the patient interventional radiology. Patient came down for thoracentesis and when she came down immediately turned blue and also became hypotensive. Patient was hypoxic to 70s she was placed on a nonrebreather mask. When I arrived
immediately and evaluated the patient she was cyanotic barely responsive. Hypotensive blood pressure went down to 70s to even upper 50s.. She sounded really gurgly. No vomiting reported. No food in the mouth. she was immediately started on bolus
IV fluids.
EKG obtained-did not look like ischemia. (Reviewed by me) Chest x-ray (Reviewed by me) small bilateral effusions atelectasis no evidence of CHF.
Quick bedside ultrasound also showed effusions have come down a lot since yesterday's ultrasound.
It took a while for the patient to get her saturations up therefore BiPAP was placed. Levophed was also started
She became somewhat responsive, still drowsy but arousable. Patient was in rapid A-fib rates better now.
It is possible that she may have aspirated
Or hypotensive secondary to the effects of Lasix
Or less likely NH.
Thromboembolic disease unlikely since she has been on Eliquis
Will add IV cefepime and Flagyl for aspiration
Continue BiPAP, Levophed
Patient is on dysphagia diet
NPO till more awake and speech re evaluate
Check Head CT
�
# Moderate to large pleural effusions
Got much better with Lasix
Unclear if related to CHF
Other differentials include malignancy
Unlikely infection
Plan was to do thoracentesis however aborted because the rapid response and the fact that she does not have much fluid now.
Interestingly the chest x-ray on 05/12/2023 without significant effusion
#SIRS on admission
No source of infection found. Possible medications induced hypotension which resulted in SIRS features
Blood and urine cultures are no growth
Negative lactic acid on admission.
# Anemia-mild iron deficiency
-Started p.o. iron
# Hypokalemia.� Presented with potassium 2.7. Status post replacement therapy with potassium. �
# Advanced dementia, nonspecific type. No agitation. Continue home medications including Risperdal. Memantine
Most of the time pleasantly demented
#Paroxysmal atrial fibrillation, continue with rate control .� Continue with anticoagulation.�
History of cardioversions in the past
Continue sotalol, Eliquis
# Pacemaker
#Primary hypertension.� 2 admissions with hypotension. Patient has advanced dementia, low oral intake. She has been experiencing low blood pressure.
#Per daughter, she had congestive heart failure in the past. Last echo in 2018 showed normal left ventricular function. Patient has not had congestive heart failure admission for years. Changed lisinopril to 40 mg to 20 mg .
Type of chf Unclear
Possibly diastolic
Check ECHO
# Hypothyroidism, continue with Synthroid
# History of bradycardia
# 12 mm nodular opacity in the right mid to upper lung zone.Daughter aware. OP CT
# Hypoalbuminemia
# Cholelithiasis
# Anxiety-continue Xanax, Celexa
# Lumbar DDD
# History of lumpectomy left breast
# DVT phylaxis-Eliquis
Daughter Cassandra Walters was updated twice in the beginning of the rapid response as well as after that. She is aware about the events. We discussed that mom is still not 'out of the bains'. Confirmed DNR.
D/W rapid response team at bedside
Discussed with IR attending, RN and METAL FURNITURE PANEL COVERER
Discussed with cardiology and pulmonary and consulted
CC time stabilizing the patient, placing orders, reviewing , labs, ABG radiology and EKG, being at bedside with the patient, updating family, discussion with other providers 65 min
Anticipated Discharge: > 48 hours
Subjective/Interval History
-
Date of Service: May 18, 2023
Objective Data
-
Labs:
Laboratory Results
05/18/23 05/18/23
07:14 08:07
WBC Cancelled 5.7
Hgb Cancelled 11.5 L D
Hct Cancelled 34.1 L
Plt Count Cancelled 391 D
Sodium 135
Potassium 3.5
Chloride 93 L
Carbon Dioxide 37 H
BUN 19 H
Creatinine 0.7
Glucose 118 H
Calcium 10.0
Vital Signs:
Vital Signs
Temp Pulse Resp BP Pulse Ox
97.9 F 81 20 136/72 96
05/18/23 07:00 05/18/23 07:00 05/18/23 07:00 05/18/23 07:00 05/18/23 08:10
I&O
05/17/23 05/18/23 05/19/23
06:59 06:59 06:59
Intake Total 240 / 240 0 / 0
Balance 240 / 240 0 / 0
[2023-05-18 10:38] LABS: Glucose - Point of Care 123 mg/dl (70-99)
[2023-05-18] MEDS: LEVOPHED 250 IV ×2 (11:14→20:10)
[2023-05-18 11:25] LABS: B.E. 14.7 mmol/L; HCO3 39.3 mmol/L (21-28); O2 Saturation % 86.3 % (94-98); PCO2 47 mmHg (32-35); pH 7.53 (7.35-7.45)
[2023-05-18 11:31] LABS: PO2 50 mmHg (83-108)
--- NOTE | 2023-05-18 11:36 | RESPNOTE ---
Responded to DESIGN LEAD and found patient on non rebreather with sats in 70's. Patient lethargic and minimally responsive. Suctioned airway for small white secretions and no response in SPO2. Placed on bipap 31/10 (12) 15L. sats currently low 90's. ABG
drawn.
[2023-05-18 11:50] LABS: Troponin I 0.022 ng/ml
[2023-05-18 12:12] LABS: Blood Urea Nitrogen 20 mg/dl (7-17); Calcium 9.5 mg/dl (8.4-10.2); Carbon Dioxide 37 mmol/L (22-30); Chloride 94 mmol/L (98-107); Estimated Creatinine Clearance 46 ml/min; Glucose 131 mg/dl (70-99); Potassium 3.6 mmol/L (3.5-5.1); Sodium 135 mmol/L (135-145); eGFR > 60.00
--- NOTE | 2023-05-18 12:40 | PTCARENOTE ---
Pt to 3345 post RR in IR. Received on BIPAP pox at 96% in afib, non verbal Levo at 4 mcg . attends [facility] now has a purewick . Daughter arrived and is sitting with pt.
[2023-05-18] MEDS: MAXIPIME 1000 MG IV ×2 (12:53→23:07)
[2023-05-18] MEDS: STERILE WATER FOR INJECTION 10 ML IV ×2 (12:53→23:07)
[2023-05-18] MEDS: FLAGYL 500 MG 100 IV ×2 (12:53→20:11)
--- NOTE | 2023-05-18 14:10 | PTCARENOTE ---
Pt pox dropping 85-88% .. BP 7758map 66 hr 90-120 afib with some pvc. Daughter at bedside .
--- NOTE | 2023-05-18 14:20 | PTCARENOTE ---
Rsp put pt to 10 iters o2 on Bipap pox 90-93
--- NOTE | 2023-05-18 15:17 | PTCARENOTE ---
Daughter Annamaria took glasses and teeth home. will be back tomorrow. Pt seen by cards
--- NOTE | 2023-05-18 15:23 | CON.CAR ---
Addendum entered and electronically signed by Regan Guerra MD 05/18/23 16:08:
I saw and examined the patient.
The STATION INSTALLER AND REPAIRER's note was reviewed and I agree with the note.
Comment: 88 y/o female with dementia, HFpEF, PAF on sotalol and Eliquis, pacemaker in place, and hypertension who lives at [facility] and was recently here for sepsis with UTI and went back to her snf. She returned and was found to
have pleaural effusion and was diuresed and plan was for thoracentesis. However, �in IR, she became hypotension, minimally responsive, cyanotic, and hypoxic per hospitalist note. She received IVF and is now on bipap and Levophed and doing better.
She is in AF with RVR.
- continue supportive care
- Rate control for AF cont Eliquis
- hold lasix while hypotensive
Original Note:
Consultation
Consultation Request
Date/Time Consultation Requested: 05/18/23 1047
Date/Time Consultation Performed: 05/18/23 1524
Requesting Provider: Dr. Wilkerson
Performing Provider: Jadyn WHITNEY for Dr. Guerra
Reason for Consultation: AFIB, CHF, hypotension
Medical History
-
Chief Complaint: hypotension, lethargy
History of Present Illness:
88 y/o female with dementia, HFpEF, PAF on sotalol and Eliquis, pacemaker in place, and hypertension who lives at [facility] and was recently here for sepsis with UTI and went back to her snf. She was given fluid and antibiotics. She
was discharged, but was still hypotensive and lethargic and was sent back in for further management. She was hypokalemic and potassium was replaced. CT scall showed small to moderate b/l pleural effusions and she has been diuresed and plan was for
tap today, but in IR, she became hypotension, minimally responsive, cyanotic, and hypoxic per hospitalist note. She received IVF and is now on bipap and Levophed and doing better. There is a concern for aspiration and she is getting abx. We are
consulted to evaluate for cardiac source. Preliminary echo results normal EF, no significant pericardial effusion. She is in afib here, with mildly elevated rates in setting of acute illness.
Past Medical History
Past Medical History: Arrhythmias, CHF, HTN and Other (dementia)
Social History
Living: Alf
Family History
Family History: Reviewed & Not Pertinent
Allergies / Home Medications
Allergy/AdvReac Type Severity Reaction Status Date / Time
carbamazepine [From Tegretol] Allergy hypertension, Verified 05/05/23 22:19
pain
codeine [Codeine] Allergy upset Verified 05/05/23 22:19
stomach
morphine Allergy Unknown Verified 05/05/23 22:19
Penicillins Allergy Hives Verified 05/05/23 22:19
sulfamethoxazole Allergy 'burning Verified 05/05/23 22:19
[From Bactrim] inside
whole body'
tramadol Allergy Unknown Verified 05/05/23 22:19
trimethoprim [From Bactrim] Allergy 'burning Verified 05/05/23 22:19
inside
whole body'
Medication Instructions Recorded Confirmed Type
furosemide 20 mg tablet 20 mg PO DAILY Fluid 09/08/14 05/12/23 History
retention/Swelling
acetaminophen 500 mg tablet 1,000 mg PO Q6HPRN PRN mild pain 07/10/19 05/12/23 History
(Tylenol Extra Strength)
alendronate 70 mg tablet 70 mg PO bone health 07/10/19 05/12/23 History
lisinopril 20 mg tablet 40 mg PO DAILY Blood pressure 07/10/19 05/12/23 History
acetaminophen 325 mg tablet 650 mg PO Q4HPRN PRN fever>100.4 03/31/23 05/12/23 History
(Tylenol)
alprazolam 0.5 mg tablet (Xanax) 0.5 mg PO TID@0830,1330,1830 03/31/23 05/12/23 History
Mental Health/Anxiety
bisacodyl 10 mg rectal suppository 10 mg CO [id number] PRN if no bm aftr 03/31/23 05/12/23 History
(Dulcolax (bisacodyl)) mom
magnesium hydroxide 400 mg/5 mL 2,400 mg PO HSPRN PRN constipation 03/31/23 05/12/23 History
oral suspension (Milk of Magnesia)
memantine 7 mg capsule 7 mg PO DAILY Mental Health/Anxiety 03/31/23 05/12/23 History
sprinkle,extended release 24hr
(Namenda XR)
risperidone 0.25 mg tablet 0.25 mg PO DAILY Mental 03/31/23 05/12/23 History
Health/Anxiety
risperidone 0.5 mg tablet 0.5 mg PO QPM Mental Health/Anxiety 03/31/23 05/12/23 History
sennosides 8.6 mg-docusate sodium 2 tab-cap PO QPM Constipation 03/31/23 05/12/23 History
50 mg capsule (Senna Plus)
acetaminophen 650 mg rectal 650 mg CO Q4H PRN fever 05/12/23 05/12/23 History
suppository
apixaban 2.5 mg tablet (Eliquis) 2.5 mg PO BID@0830,1830 Blood Clot 05/12/23 05/12/23 History
Prevention/Tx
cholecalciferol (vitamin D3) 1,250 1,250 mcg PO MONTHLY Supplement 05/12/23 05/12/23 History
mcg (50,000 unit) capsule
citalopram 10 mg tablet 10 mg PO DAILY Mental 05/12/23 05/12/23 History
Health/Anxiety
levothyroxine 50 mcg tablet 50 mcg PO DAILY@0630 Thyroid 05/12/23 05/12/23 History
sotalol 80 mg tablet 80 mg PO BID@0830,1830 Blood 05/12/23 05/12/23 History
Pressure
cephalexin 500 mg capsule 500 mg PO QID Infection 05/13/23 05/12/23 History
Review of Systems
-
Unable to obtain full review of systems at this time due to: Dementia
History Source: Other (chart)
All other systems: Negative unless noted
Respiratory: Trouble Breathing
Neurological: Other (lethargy)
Physical Exam
Vital Signs
Temp Pulse Resp BP Pulse Ox
97.4 F 106 17 77/58 89
05/18/23 13:00 05/18/23 14:15 05/18/23 14:15 05/18/23 14:06 05/18/23 14:15
Lab Results
05/18/23 08:07
05/18/23 11:41
Troponin I 0.022 ng/ml 05/18/23 11:05
Exm-O-Rglfqlsloqe Pept 4370 pg/ml 05/16/23 16:58
Physical Exam
General: No Apparent Distress
Respiratory: Other (on BiPAP)
Cardiac: Irregular Rhythm
Musculoskeletal: No Edema
Skin: Warm and Dry
Impression / Plan
-
Aspiration:
-on abx
-on bipap
-management per primary team
-requiring Levophed for hypotension/shock- this requires intensive monitoring- hold ACEI and lasix for now
Pleural effusions:
-improved with diuretic- now needs to be held with hypotension
AFIB: paroxysmal- currently persistent
-continue sotalol for now
-continue Eliquis
Pacemaker:
-stable on OP checks- continue to monitor
HFpEF:
-lasix held as above
-awaiting final echo results, but EF preserved
Data Reviewed
-
EKG: Tracing Personally Visualized and interpreted (AFIB 102 BPM)
Radiology: Report Reviewed by me (CXR: Small bilateral pleural effusions, left greater than right. 2. Bibasilar subsegmental atelectasis or pneumonia may also be present. 3. No evidence of decompensated congestive heart failure or pneumothorax.)
Labs: Labs Reviewed by me
--- NOTE | 2023-05-18 15:45 | PTCARENOTE ---
Rsp put pt on 4l midflow pox now 99%
--- NOTE | 2023-05-18 15:52 | W.PN.UPDATE ---
Update Note
Progress Note Update
Seen and evaluated the patient
She looks much better
Oxygenation improved
Pressure improved
Awake
Discussed with daughter at bedside
Discussed with nursing
--- NOTE | 2023-05-18 17:00 | W.PN.PUL3 ---
Today's Communication / Plan
-
Continue antibiotics for possible aspiration pneumonia/pneumonitis.
Wean down FiO2
NPO
No need for noninvasive mechanical ventilation
Wean off Levophed
Holding diuretics
Assessment
-
88-year-old female with recurrent UTI, recently hospitalized for sepsis, discharged on cefazolin, now presents with hypotension not responding to IV fluids.� Patient required pressors.� Patient initially in the intensive care unit. Transferred to
the floors after improvement.
Pulmonary reconsulted 05/18/2023-patient while in interventional radiology laying supine became cyanotic and hypotensive. Hypoxic requiring nonrebreather mask. We were reconsulted for assist on the help of hypoxemia.
Acute hypoxemic respiratory failure: Possibly aspiration will lay supine.-Requiring noninvasive mechanical ventilation.
Acute event occurred in interventional radiology what she was going down for thoracentesis.
Chest x-ray reviewed: Appears not impressive. No large infiltrate noted. Bibasilar infiltrates pneumonia versus atelectasis. Small bilateral pleural effusions.
Hypotension/shock-requiring low-dose Levophed
bilateral pleural effusions: Likely hypovolemia/CHF
Rapid atrial fibrillation during event.
-
Sepsis, hypotension
Secondary to UTI
Anemia
Lung nodule
Conditions present prior to admission
Hypertension
Atrial fibrillation
Hypothyroidism
Osteoporosis
Dementia
senior care resident
Plan/recommendations
-
Acute event might have been precipitated by an aspiration event.
Again patient was fed this afternoon, had another aspiration event.
Would keep n.p.o. for now
Head of the bed elevation
Supportive care
-
For now I agree with antibiotics: Cefepime/Flagyl.
A sputum culture if able
Incentive spirometry if patient is able.
Currently somewhat somnolent. Occasional coughing. On 10 L of supplemental oxygen via nasal cannula. Not in significant distress.
Avoid sedatives.
Aspiration precaution
Head of bed elevation
-
Vasovagal event also possibility-patient is being diuresed.
Due to hypotension during the event now diuresis is on hold.
Currently on norepinephrine, hopefully can be weaned off.
-
Bilateral pleural effusions: Likely hypovolemia on some degree of volume overload, proBNP significantly elevated.
Chest x-ray from this morning: Small bilateral pleural effusions.
Not amenable for thoracentesis
Continue nutritional support
Optimize cardiac status. Diuretics not on hold for due to hypotension.
-
Atrial fibrillation: Heart rate is improved.
-
Lung nodule noted on chest x-ray.� CT imaging recommended as outpatient.� Given [facility] resident, DNR status, this will be deferred to primary physician.
-
DVT prophylaxis on anticoagulation
-
DNR
Prognosis is guarded
Would focus on comfort
Subjective Data
-
Date of Service:
Date of Service: May 18, 2023
Chief Complaint: Pulmonary Follow Up (Acute respiratory failure)
Subjective:
Pulmonary reconsulted for respiratory failure. Patient is 88, with advanced dementia, nonverbal, [facility] resident.
Objective Data
Data Reviewed
Vital Signs / I&O / Oxygen:
Vital Signs
Temp Pulse Resp BP Pulse Ox
97.4 F 89 15 119/91 99
05/18/23 13:00 05/18/23 16:30 05/18/23 16:30 05/18/23 16:00 05/18/23 16:30
Intake and Output
05/17/23 05/18/23 05/19/23
06:59 06:59 06:59
Intake Total 240 / 240 0 / 0 100 / 100
Balance 240 / 240 0 / 0 100 / 100
SaO2 99
Nasal Cannula flow liters per 4
minute
Labs/Micro/Reports
Lab Data
05/18/23 08:07
05/18/23 11:41
Laboratory Results
05/18/23
11:11
pH 7.53 H
pCO2 47 H
pO2 50 L*
HCO3 39.3 H
O2 Delivery Level
Microbiology
05/12/23 16:01 Blood/Venous Blood Culture - Final
No Growth - Final Report
05/12/23 16:01 Blood/Venous Blood Culture - Final
No Growth - Final Report
--- NOTE | 2023-05-18 17:12 | PTCARENOTE ---
started feeding pt dinner, pudding and she aspirated , Dr Wilkerson aware pt NPO
[2023-05-18] MEDS: RISPERDAL PO (17:13)
[2023-05-18] MEDS: SENOKOT-S PO (17:13)
--- NOTE | 2023-05-18 17:15 | PTCARENOTE ---
Daughter given update that Marie is now on mid flow and that while feeding her dinner she aspirated, Also that pt is now NPO
[2023-05-18 17:36] LABS: Troponin I 0.019 ng/ml
[2023-05-18] MEDS: BETAPACE PO (21:41)
[2023-05-18] MEDS: ELIQUIS PO (21:42)
[2023-05-18] MEDS: NAMENDA PO (21:42)
[2023-05-18] MEDS: COLACE PO (21:42)
--- NOTE | 2023-05-18 23:05 | W.PN.UPDATE ---
Update Note
Progress Note Update
Patient continues somnolent. Assessment unchanged from earlier late afternoon post aspiration event. She has midlow with non-rebreather saturating about 88-92%, No cough noted. BP and HR stable. IV abts continue. Remains NPO.
[2023-05-19] VITALS (33 sets, daily range): BP systolic 70–139; BP diastolic 46–113; BMI 20.3
--- NOTE | 2023-05-19 02:50 | PTCARENOTE ---
Pt received on 10L Mid flow NC, only mumbling words, incoherent most times. MAPS remain >65 on Levo, titrating per protocol. Pt had a desaturation episode to the low 80's, Pt placed on non rebreather along with the Midflow on 15L. Pt currently >90
%. CHELO bains and respiratory called to bedside to discuss POC. will continue with pt on levo for MAP control and on the non rebreather and midflow NC for oxygen support. PT noted to be in and out of a-fib on tele.
--- NOTE | 2023-05-19 03:15 | PTCARENOTE ---
All PO medications held d/t pt aspiration and not able to safelt swallow, CHELO solis Made aware
[2023-05-19] MEDS: TYLENOL/FEVERALL 650 MG RECTAL ×2 (03:42→19:44)
[2023-05-19] MEDS: FLAGYL 500 MG 100 IV ×3 (03:42→19:44)
[2023-05-19 03:48] LABS: Hematocrit 35.8 % (37.0-47.0); Hemoglobin 12.3 g/dL (12.0-16.0); Mean Corp Hgb Conc. 34.4 g/dL (33.0-37.0); Mean Corpuscular Hgb 27.6 pg (27.0-31.0); Mean Corpuscular Volume 80.4 fL (81.0-99.0); Mean Platelet Volume 9.4 fL (7.4-10.4); Platelet Count 422 10^3/uL (130-400); Red Blood Cell Count 4.45 10^6/uL (4.20-5.40); White Blood Cell Count 16.6 10^3/uL (4.8-10.8)
[2023-05-19 04:05] LABS: Blood Urea Nitrogen 24 mg/dl (7-17); Calcium 9.6 mg/dl (8.4-10.2); Carbon Dioxide 36 mmol/L (22-30); Chloride 95 mmol/L (98-107); Estimated Creatinine Clearance 40 ml/min; Glucose 153 mg/dl (70-99); Magnesium 2.2 mg/dl (1.6-2.3); Potassium 3.6 mmol/L (3.5-5.1); Sodium 138 mmol/L (135-145); eGFR > 60.00
[2023-05-19] MEDS: SYNTHROID PO (04:17)
[2023-05-19] MEDS: LEVOPHED 250 IV ×2 (06:15→18:37)
--- NOTE | 2023-05-19 07:44 | W.PN.CD ---
Today's Communication / Plan
-
GOC discussion
Impression / Plan
-
Impression: 88F with recurrent AF after aspiration event in IR.
PMH: dementia, HFpEF, PAF on sotalol and Eliquis, pacemaker in place, and hypertension who lives at [facility] and was recently here for sepsis with UTI and went back to her long-term.�
Plan
Aspiration:
Pleural effusions:
AFIB: paroxysmal - currently persistent
- meds held for NPO status
- Consider transition to LMWH/UFH after goals of care discussion
Pacemaker: stable on OP checks- continue to monitor
HFpEF:
-lasix held as above
-echo unchanged except AF/pleural effusion
Dispo
- Nursing reports GOC discussion with the patient's daughter yesterday
- poor prognosis
Subjective: somnolent/not reponsive
Physical Exam
Vital Signs/Labs
Vital Signs
Temp Pulse Resp BP Pulse Ox
38.4 C H 93 19 105/86 99
05/19/23 03:40 05/19/23 04:45 05/19/23 04:45 05/19/23 04:00 05/19/23 04:45
05/18/23 05/19/23 05/20/23
06:59 06:59 06:59
Actual Weight 112 lb 9 oz 111 lb 1.808 oz
05/19/23 03:29
05/19/23 03:29
PT 16.8 Sec (11.4-14.6) H 05/13/23 03:43
INR 1.39 05/13/23 03:43
APTT 45.6 Sec (23.4-35.0) H 05/13/23 03:43
Magnesium 2.2 mg/dl (1.6-2.3) 05/19/23 03:29
05/16/23
16:58
Ciu-Q-Xhrwcncljyu Pept 4370
LAB Results
05/18/23 05/18/23 05/18/23
11:05 17:04 22:45
Troponin I 0.022 0.019 Cancelled
Physical Exam
Constitutional: Other (somnolent)
EENT: Anicteric
Cardiovascular: Pedal edema is absent, Systolic murmur absent, Diastolic murmur absent and Rhythm/rate is irregular
Respiratory: Respiratory effort normal and Rhonchi Present
GI: Soft
Data Reviewed
-
Date of Service: May 19, 2023
--- NOTE | 2023-05-19 07:51 | PTCARENOTE ---
Pt recieved on 15 mid flow and non rebreather . Levo at 6 mcg/hr. Unresponsive at this time. Pt looks comfortable
[2023-05-19] MEDS: CELEXA PO (08:53)
[2023-05-19] MEDS: RISPERDAL PO (08:53)
[2023-05-19] MEDS: BETAPACE PO ×2 (08:53→19:44)
[2023-05-19] MEDS: MIRALAX PO (08:53)
[2023-05-19] MEDS: ELIQUIS PO (08:53)
[2023-05-19] MEDS: COLACE PO (08:53)
[2023-05-19] MEDS: NAMENDA PO (08:53)
[2023-05-19] MEDS: FEOSOL PO (08:53)
--- NOTE | 2023-05-19 09:26 | W.PN.HOSP.TC ---
Today's Communication/Plan
-
AB
Pressors
Hold PO meds
CXR
Assessment / Plan
Assessment / Plan
88-year-old female with advanced dementia presented with increasing lethargy/change in mental status.� On admission to the emergency room, she was found to have hypotension and hypokalemia.� Patient was recently was in the hospital for
sepsis/septic shock with hypotension.� Source was felt to be UTI she was treated with antibiotics and fluids. Antibiotics were changed to Keflex for discharge. Patient was brought back to the hospital because her blood pressure was 70s over 40s at
the facility. Patient was readmitted.
Short of breath and barely responsive on nonrebreather
Cardiovascular system S1-S2 irregular
Chest clear to auscultation, diminished at bases
Abdomen soft and nontender
No pedal edema
CT of the abdomen and pelvis-no hydronephrosis or hydroureter or kidney stones. Moderate concentric thickening of the wall of the urinary bladder, small to moderate bilateral pleural effusions, cholelithiasis, diverticuli, mild lumbar
dextroscoliosis mild lumbar DDD
#05/18/23-Called to see the patient interventional radiology. Patient came down for thoracentesis and when she came down immediately turned blue and also became hypotensive. Patient was hypoxic to 70s she was placed on a nonrebreather mask. When I
arrived immediately and evaluated the patient she was cyanotic barely responsive. Hypotensive blood pressure went down to 70s to even upper 50s.. She sounded really gurgly. No vomiting reported. No food in the mouth. she was immediately started
on bolus IV fluids.
EKG obtained-did not look like ischemia. (Reviewed by me) Chest x-ray (Reviewed by me) small bilateral effusions atelectasis no evidence of CHF.
Quick bedside ultrasound also showed effusions have come down a lot since yesterday's ultrasound.
It took a while for the patient to get her saturations up therefore BiPAP was placed. Levophed was also started
She became somewhat responsive, still drowsy but arousable. Patient was in rapid A-fib rates better now.
It is possible that she may have aspirated
Thromboembolic disease unlikely since she has been on Eliquis
Will add a dose of Vanco and continue IV cefepime and Flagyl for aspiration
Continue , Levophed
On NRB
Patient was on dysphagia diet
NPO till more awake and speech re evaluate
Head CT neg
She is not doing well, continues to be on Levophed. On nonrebreather
Check repeat chest x-ray
Had a fever-likely aspiration pneumonia
# Septic shock likely from aspiration pneumonia-continue Levophed
�
# Moderate to large pleural effusions
Got much better with Lasix
Unclear if related to CHF
Other differentials include malignancy
Plan was to do thoracentesis however aborted because the rapid response and the fact that she does not have much fluid now.
Interestingly the chest x-ray on 05/12/2023 without significant effusion
#SIRS on admission
No source of infection found. Possible medications induced hypotension which resulted in SIRS features
Blood and urine cultures are no growth
Negative lactic acid on admission.
# Anemia-mild iron deficiency
-Started p.o. iron-Hold as NPO
# Hypokalemia.� Presented with potassium 2.7. Status post replacement therapy with potassium. �
# Advanced dementia, nonspecific type. No agitation. Continue home medications including Risperdal. Memantine
Most of the time pleasantly demented
#Paroxysmal atrial fibrillation, continue with rate control .� Continue with anticoagulation.�
History of cardioversions in the past
Continue sotalol, Eliquis
# Pacemaker
#Primary hypertension.� 2 admissions with hypotension. Patient has advanced dementia, low oral intake. She has been experiencing low blood pressure.
#Per daughter, she had congestive heart failure in the past. Last echo in 2019 showed normal left ventricular function. Patient has not had congestive heart failure admission for years. .
Chronic heart failure with preserved ejection fraction
ECHO 05/18/2023-normal LV systolic function ejection fraction 55 to 60%, mild MR, mild AI, mild TR, pleural effusion
# Hypothyroidism, continue with Synthroid IV
# History of bradycardia
# 12 mm nodular opacity in the right mid to upper lung zone.Daughter aware. OP CT
# Hypoalbuminemia
# Cholelithiasis
# Anxiety-Hold Xanax, Celexa
# Lumbar DDD
# History of lumpectomy left breast
# DVT phylaxis-Lovenox
Daughter Cassandra Walters was updated . Discussed that the prognosis is guarded at this point. They are aware that she may not make it. Encouraged to be sick. Discussed about options for comfort care if not improving. Family will visit.
Continue current treatments for now.
D/W RN
Anticipated Discharge: > 48 hours
Subjective/Interval History
-
Date of Service: May 19, 2023
Objective Data
-
Labs:
Laboratory Results
05/19/23
03:29
WBC 16.6 H
Hgb 12.3
Hct 35.8 L
Plt Count 422 H
Sodium 138
Potassium 3.6
Chloride 95 L
Carbon Dioxide 36 H
BUN 24 H
Creatinine 0.8
Glucose 153 H
Calcium 9.6
Vital Signs:
Vital Signs
Temp Pulse Resp BP Pulse Ox
100.0 F 84 19 101/88 92
05/19/23 07:59 05/19/23 07:00 05/19/23 07:00 05/19/23 07:00 05/19/23 08:10
I&O
05/18/23 05/19/23 05/20/23
06:59 06:59 06:59
Intake Total 0 / 0 578 / 578
Output Total 250 / 250
Balance 0 / 0 328 / 328
--- NOTE | 2023-05-19 09:41 | W.PN.PUL3 ---
Today's Communication / Plan
-
Continue supplemental oxygen currently at 15L
Wean off Levophed
Keep n.p.o.
Head of the bed elevation
Continue antibiotics
Focus on comfort
Assessment
-
88-year-old female with recurrent UTI, recently hospitalized for sepsis, discharged on cefazolin, now presents with hypotension not responding to IV fluids.� Patient required pressors.� Patient initially in the intensive care unit. Transferred to
the floors after improvement.
Pulmonary reconsulted 05/18/2023-patient while in interventional radiology laying supine became cyanotic and hypotensive. Hypoxic requiring nonrebreather mask. We were reconsulted for assist on the help of hypoxemia.
Acute hypoxemic respiratory failure: Possibly aspiration will lay supine.-Requiring noninvasive mechanical ventilation.
Acute event occurred in interventional radiology what she was going down for thoracentesis.
Chest x-ray reviewed: Appears not impressive. No large infiltrate noted. Bibasilar infiltrates pneumonia versus atelectasis. Small bilateral pleural effusions.
Hypotension/shock-requiring low-dose Levophed
bilateral pleural effusions: Likely hypovolemia/CHF
Rapid atrial fibrillation during event.
-
Sepsis, hypotension
Secondary to UTI
Anemia
Lung nodule
Conditions present prior to admission
Hypertension
Atrial fibrillation
Hypothyroidism
Osteoporosis
Dementia
custodial resident
Plan/recommendations
-
Unfortunately, respiratory status remains tenuous. Remains in significant supplemental oxygen. 15 L via mid flow.
Aspiration event suspected.
Noncommunicative, alert. Not following commands.
-
Would keep n.p.o. for now
Head of the bed elevation
Supportive care, prognosis is poor.
-
Continue antibiotics: Cefepime/Flagyl.
A sputum culture if able-unable to produce.
Incentive spirometry if patient is able-patient does not engage.
Avoid sedatives.
Aspiration precaution
Head of bed elevation
-
Vasovagal event also possibility-patient was being diuresed.
Due to hypotension during the event now diuresis is on hold.
Remains in shock possble septic component, currently on norepinephrine at 6mcg, hopefully can be weaned off.
-
Bilateral pleural effusions: some degree of volume overload, proBNP significantly elevated.
Chest x-ray from this morning: Small bilateral pleural effusions.
Not amenable for thoracentesis
-
Continue nutritional support
Optimize cardiac status. Diuretics not on hold for due to hypotension.
-
Atrial fibrillation: Heart rate is improved.
Cardiology correspondence reviewed, poor prognosis. Supportive care.
-
Lung nodule noted on chest x-ray.� CT imaging recommended as outpatient.� Given residential resident, DNR status, this will be deferred to primary physician.
-
DVT prophylaxis on anticoagulation
-
DNR
Given acute worsening, prognosis is poor.
Would focus on comfort, goals of care discussion.
Subjective Data
-
Date of Service:
Date of Service: May 19, 2023
Chief Complaint: Pulmonary Follow Up (Acute respiratory failure)
Subjective:
Patient nonverbal
Remains on supplemental oxygen
Somnolent
Not coughing on demand.
Review of Systems
General: Other (Unable to obtain, somnolent with underlying dementia.)
Objective Data
Data Reviewed
Vital Signs / I&O / Oxygen:
Vital Signs
Temp Pulse Resp BP Pulse Ox
100.0 F 84 19 101/88 92
05/19/23 07:59 05/19/23 07:00 05/19/23 07:00 05/19/23 07:00 05/19/23 08:10
Intake and Output
05/18/23 05/19/23 05/20/23
06:59 06:59 06:59
Intake Total 0 / 0 578 / 578
Output Total 250 / 250
Balance 0 / 0 328 / 328
SaO2 92
Nasal Cannula flow liters per 15
minute
Physical Exam
General: Respiratory Distress and Other (Cachectic)
HEENT: Normocephalic
Cardiovascular: S1-S2
Respiratory: Crackles, Accessory Resp Muscle Use (Mild) and Stridor (n)
GI: Soft and Non Distended
Neurology: Other (Noncommunicative, not following commands.) and Other (Somnolent, occasionally coughing. Not following commands.)
Labs/Micro/Reports
Lab Data
05/19/23 03:29
05/19/23 03:29
Laboratory Results
05/18/23
11:11
pH 7.53 H
pCO2 47 H
pO2 50 L*
HCO3 39.3 H
O2 Delivery Level
Microbiology
05/12/23 16:01 Blood/Venous Blood Culture - Final
No Growth - Final Report
05/12/23 16:01 Blood/Venous Blood Culture - Final
No Growth - Final Report
--- NOTE | 2023-05-19 10:25 | W.PN.UPDATE ---
Update Note
Progress Note Update
Chest x-ray this morning showed complete whiteout of the left lung. Likely due to mucous plugging.
Patient has poor cough effort.
Not a candidate for bronchoscopy at this point.
Continue secretion clearance interventions
Will add vest, hopefully the patient improves her cough effort.
Avoid sedatives
Keep n.p.o.
Prognosis is poor
[2023-05-19] MEDS: VANCOCIN 275 MG IV (10:40)
--- NOTE | 2023-05-19 10:42 | CM ---
Patient from [facility] with Hx dementia with Dx Acute hypoxemic respiratory failure, Possible aspiration, Hypotension/shock, bilateral pleural effusions. O2 15L midflow NRB. Receiving Levophed gtt, IV Abx, IV Lasix, IV Levothroid. Per
nurse assessment; patient unresponsive, non-verbal. PT held. Per Dr Wilkerson; discussion with family that prognosis is guarded and option for comfort care if not improving. Patient's family coming in today.
Phone call Rafia Rivas [facility]; clinical update provided.
CM continuing to follow for d/c needs.
Plan return to [facility] vs possible comfort care.
[2023-05-19] MEDS: LOVENOX 50 MG SC (10:47)
[2023-05-19] MEDS: DUONEB 3 ML INH ×2 (11:56→19:13)
--- NOTE | 2023-05-19 12:07 | PTCARENOTE ---
Family at bedside . awaiting sister to talk with DR Wilkerson
--- NOTE | 2023-05-19 12:08 | PTCARENOTE ---
Informed by family that daughter Cassandra and son Felton are POA they are to make all decisions. Annamaria is not a decision maker
[2023-05-19] MEDS: MAXIPIME 1000 MG IV (12:20)
[2023-05-19] MEDS: STERILE WATER FOR INJECTION 10 ML IV (12:20)
[2023-05-19] MEDS: ATIVAN 0.25 MG IV (13:22)
[2023-05-19] MEDS: NSS (PRESERVATIVE FREE) 0.125 ML IV (13:23)
--- NOTE | 2023-05-19 13:48 | PTOTSP ---
Pt transferred to IMU yesterday and therapy orders were not continued upon transfer. She will need new orders for PT/OT to resume.
--- NOTE | 2023-05-19 14:51 | W.PN.UPDATE ---
Update Note
Progress Note Update
Met with several family members bedside. Patient is on mid flow oxygen. She looks slightly better than this morning. She still on pressors. We discussed about her x-ray finding of atelectasis. Per discussion with pulmonology is not a candidate
for bronchoscopy. Family wants to continue current treatment. We discussed that if she gets into respiratory distress or she declines they are open to changing her to comfort care.
All questions answered
--- NOTE | 2023-05-19 16:25 | PTCARENOTE ---
Family at bedside, son is most intuned to reality of situation. Levo continues , continuing to wean. 15 l mid flow
[2023-05-19] MEDS: D5/0.45%NACL 1000 IV (19:44)
--- NOTE | 2023-05-19 23:28 | VATNOTE ---
called to assess right picc line bleeding thru lara bandage applied earlier today after newly picc line placed. Changed per protocol with one new quikclot applied and new lara.
[2023-05-20] VITALS (51 sets, daily range): BP systolic 73–148; BP diastolic 52–119; BMI 20.2
[2023-05-20] MEDS: LOVENOX 50 MG SC ×3 (00:54→21:19)
[2023-05-20] MEDS: MAXIPIME 1000 MG IV ×2 (00:57→12:56)
[2023-05-20] MEDS: STERILE WATER FOR INJECTION 10 ML IV ×2 (00:57→12:58)
--- NOTE | 2023-05-20 01:32 | PTCARENOTE ---
Caring for pt overnight. Family at bedside. Pt not unresponsive, staring, only responses to pain. Continues to be on levo. Gentle IVF started. ABX given. Q2T. R picc in place, oozing blood & clots, IV team in to assess& change dressing. Purewick in
place. Pt had a fever in beginning of shift, rectal tylenol given, will monitor. Many family members at bedside, family updated on care when we are in the room. Spoke to family on phone and updated them at well. Pt continues to be NPO. Bed alarm on.
Will continue to monitor.
[2023-05-20] MEDS: FLAGYL 500 MG 100 IV ×3 (04:48→21:19)
[2023-05-20 05:25] LABS: Hematocrit 31.3 % (37.0-47.0); Hemoglobin 10.7 g/dL (12.0-16.0); Mean Corp Hgb Conc. 34.2 g/dL (33.0-37.0); Mean Corpuscular Hgb 27.6 pg (27.0-31.0); Mean Corpuscular Volume 80.7 fL (81.0-99.0); Mean Platelet Volume 9.2 fL (7.4-10.4); Platelet Count 322 10^3/uL (130-400); Red Blood Cell Count 3.88 10^6/uL (4.20-5.40); Red Cell Dist. Width 16.3 % (11.5-14.5)
[2023-05-20 05:48] LABS: Blood Urea Nitrogen 24 mg/dl (7-17); Calcium 9.2 mg/dl (8.4-10.2); Carbon Dioxide 35 mmol/L (22-30); Chloride 96 mmol/L (98-107); Estimated Creatinine Clearance 53 ml/min; Glucose 150 mg/dl (70-99); Sodium 137 mmol/L (135-145); eGFR > 60.00
[2023-05-20] MEDS: DUONEB 3 ML INH ×2 (08:03→14:27)
[2023-05-20 08:33] LABS: Magnesium 2.2 mg/dl (1.6-2.3)
--- NOTE | 2023-05-20 08:45 | PTCARENOTE ---
Patient lying in bed and is not easily arousable, but responsive to pain. Nonverbal, but will follow with eyes if awake. Occasional twitching noted. D5/0.45% NaCl IV running @ 40 mLs/hr. KCl 40 meq in NSS @ 67.5 mLs/hr IV started. K level this
morning (05/19) was 3 mmol/L. PO medications on hold due to mentation and aspiration precautions. Spoke with her doctor and a NPO order was obtained, speech consult ordered. Lung sounds diminished on auscultation on left side and bilaterally in lower
lobes. Currently on 15 L midflow, will attempt to wean.
--- NOTE | 2023-05-20 08:46 | PTCARENOTE ---
Read and agree with Inga's Patient Care Note.
--- NOTE | 2023-05-20 09:09 | W.PN.HOSP.TC ---
Addendum entered and electronically signed by Andrew Wilkerson MD 05/20/23 12:02:
Spoke to daughter Cassandra and updated.
Original Note:
Today's Communication/Plan
-
Continue current treatments
Speech evaluation of possible
Assessment / Plan
Assessment / Plan
88-year-old female with advanced dementia presented with increasing lethargy/change in mental status.� On admission to the emergency room, she was found to have hypotension and hypokalemia.� Patient was recently was in the hospital for
sepsis/septic shock with hypotension.� Source was felt to be UTI she was treated with antibiotics and fluids. Antibiotics were changed to Keflex for discharge. Patient was brought back to the hospital because her blood pressure was 70s over 40s at
the facility. Patient was readmitted.
CVS S1 S2 irregular
Chest clear to auscultation, diminished at bases
Abdomen soft and nontender
No pedal edema
CT of the abdomen and pelvis-no hydronephrosis or hydroureter or kidney stones. Moderate concentric thickening of the wall of the urinary bladder, small to moderate bilateral pleural effusions, cholelithiasis, diverticuli, mild lumbar
dextroscoliosis mild lumbar DDD
#05/18/23-Called to see the patient interventional radiology. Patient came down for thoracentesis and when she came down immediately turned blue and also became hypotensive. Patient was hypoxic to 70s she was placed on a nonrebreather mask. When I
arrived immediately and evaluated the patient she was cyanotic barely responsive. Hypotensive blood pressure went down to 70s to even upper 50s.. She sounded really gurgly. No vomiting reported. No food in the mouth. she was immediately started
on bolus IV fluids.
EKG obtained-did not look like ischemia. (Reviewed by me) Chest x-ray (Reviewed by me) small bilateral effusions atelectasis no evidence of CHF.
Quick bedside ultrasound also showed effusions have come down a lot since yesterday's ultrasound.
It took a while for the patient to get her saturations up therefore BiPAP was placed. Levophed was also started
She became somewhat responsive, still drowsy but arousable. Patient was in rapid A-fib rates better now.
It is possible that she may have aspirated
Thromboembolic disease unlikely since she has been on Eliquis
Continue IV cefepime and Flagyl for aspiration
Continue , Levophed
Patient was on dysphagia diet
NPO till more awake and speech re evaluate
Head CT neg
She is not doing well, continues to be on Levophed. On 15 L
Check repeat chest x-ray
Aspiration pneumonia
Atelectasis of the whole left lung, mucous plugging, aspiration-on vest therapy
# Septic shock likely from aspiration pneumonia-continue Levophed
�
# Moderate to large pleural effusions
Got much better with Lasix
Unclear if related to CHF
Other differentials include malignancy
Plan was to do thoracentesis however aborted because the rapid response and the fact that she does not have much fluid now.
Interestingly the chest x-ray on 05/12/2023 without significant effusion
#SIRS on admission
No source of infection found. Possible medications induced hypotension which resulted in SIRS features
Blood and urine cultures are no growth
Negative lactic acid on admission.
# Anemia-mild iron deficiency
-Started p.o. iron-Hold as NPO
# Hypokalemia.� Presented with potassium 2.7. Status post replacement therapy with potassium. �
# Advanced dementia, nonspecific type. No agitation. Continue home medications including Risperdal. Memantine
Most of the time pleasantly demented
#Paroxysmal atrial fibrillation, continue with rate control .� Continue with anticoagulation.�
History of cardioversions in the past
Continue sotalol, Eliquis
# Pacemaker
#Primary hypertension.� 2 admissions with hypotension. Patient has advanced dementia, low oral intake. She has been experiencing low blood pressure.
#Per daughter, she had congestive heart failure in the past. Last echo in 2019 showed normal left ventricular function. Patient has not had congestive heart failure admission for years. .
Chronic heart failure with preserved ejection fraction
ECHO 05/18/2023-normal LV systolic function ejection fraction 55 to 60%, mild MR, mild AI, mild TR, pleural effusion
# Hypothyroidism, continue with Synthroid IV
# History of bradycardia
# 12 mm nodular opacity in the right mid to upper lung zone.Daughter aware. OP CT
# Hypoalbuminemia
# Cholelithiasis
# Anxiety-Hold Xanax, Celexa
# Lumbar DDD
# History of lumpectomy left breast
# DVT phylaxis-Lovenox
D/W RN
Met with multiple family members yesterday. Poor prognosis discussed. They just wanted to take a day to time and see how she does. If patient goes into respiratory distress or if she continues to get worse they are open to de-escalating treatment.
Anticipated Discharge: > 48 hours
Subjective/Interval History
-
Date of Service: May 20, 2023
Objective Data
-
Labs:
Laboratory Results
05/20/23
04:56
WBC 19.0 H
Hgb 10.7 L
Hct 31.3 L
Plt Count 322 D
Sodium 137
Potassium 3.0 L
Chloride 96 L
Carbon Dioxide 35 H
BUN 24 H
Creatinine 0.6
Glucose 150 H
Calcium 9.2
Vital Signs:
Vital Signs
Temp Pulse Resp BP Pulse Ox
99.2 F 104 26 141/98 94
05/20/23 07:00 05/20/23 08:06 05/20/23 08:06 05/20/23 05:39 05/20/23 08:06
I&O
05/19/23 05/20/23 05/21/23
06:59 06:59 06:59
Intake Total 578 / 578 860 / 860
Output Total 250 / 250
Balance 328 / 328 860 / 860
--- NOTE | 2023-05-20 09:29 | PTOTSP ---
Reviewed chart and noted pt transferred to IMU and therapy orders were not continued upon transfer. She will need new orders for PT/OT to resume, if appropriate.
[2023-05-20] MEDS: BETAPACE PO ×2 (09:35→21:19)
[2023-05-20] MEDS: KCL 270 MEQ IV (09:49)
--- NOTE | 2023-05-20 10:36 | CM ---
Addendum entered by FCO Ramey 05/20/23 10:47:
added correct pharmacy for [facility] in chart
Addendum entered by FCO Ramey 05/20/23 10:40:
Patient is a LTC resident at [facility].
PLAN; d/c to [facility]
Report: [phone]

Original Note:
Awaiting speech eval. Family has not made decision on further interventions. Patient is staring up and only responding to painful stimuli.
CM available to assist with next level of care.
--- NOTE | 2023-05-20 13:00 | W.PN.PUL3 ---
Today's Communication / Plan
-
Continue supplemental oxygen - wean as tolerated to keep SpO2 >90-94%
Wean off Levophed
Keep n.p.o.
Head of the bed elevation
Continue antibiotics
Considering her left sided mucous plugging, I will continue nebulized TID and also start Mucomyst. Trial of chest PT on her left side to try to improve her cough given her cough is currently ineffective.
Focus on comfort
Assessment
-
88-year-old female with recurrent UTI, recently hospitalized for sepsis, discharged on cefazolin, now presents with hypotension not responding to IV fluids.� Patient required pressors.� Patient initially in the intensive care unit. Transferred to
the floors after improvement.
Pulmonary reconsulted 05/18/2023-patient while in interventional radiology laying supine became cyanotic and hypotensive. Hypoxic requiring nonrebreather mask. We were reconsulted for assist on the help of hypoxemia.
Acute hypoxemic respiratory failure: Due to left-sided atelectasis s/p aspiration event when went down to IR for thoracentesis on 05/18/2023 --> now on midflow nasal cannula
Hypotension/shock-requiring low-dose Levophed
bilateral pleural effusions: Likely hypervolemia/CHF
Rapid atrial fibrillation when pt went down to IR on 05/18/2023 for thora
-
Sepsis, hypotension
Secondary to UTI
Anemia
Lung nodule
Conditions present prior to admission
Hypertension
Atrial fibrillation
Hypothyroidism
Osteoporosis
Dementia
[facility] resident
Plan/recommendations
-
Unfortunately, respiratory status remains tenuous. Remains in significant supplemental oxygen. Now 10 L via mid flow.
Aspiration event suspected on 05/18/2023 when she went down to IR for L-sided thora
Noncommunicative, alert. Not following commands.
-
Would keep n.p.o. for now
Head of the bed elevation
Supportive care, prognosis is poor.
If PO medications needed then insert dobhoff tube
Considering her left sided mucous plugging, I will continue nebulized bronchodilators TID and also start Mucomyst. Given her tachycardia I will change her albuterol to xopenex, and use atrovent. We should try chest PT on her left side to try to
improve her cough given her cough is currently ineffective.
-
Continue antibiotics: Cefepime/Flagyl.
A sputum culture if able-unable to produce.
Incentive spirometry if patient is able-patient does not engage.
Avoid sedatives.
Aspiration precaution
Head of bed elevation
-
Vasovagal event also possibility-patient was being diuresed.
Due to hypotension during the event now diuresis is on hold.
Remains in shock possible septic component, currently on norepinephrine at 1mcg, hopefully can be weaned off.
-
Bilateral pleural effusions: some degree of volume overload, proBNP significantly elevated.
Not amenable for thoracentesis considering recent events
-
Continue nutritional support
Optimize cardiac status. Diuretics now on hold for due to hypotension.
-
Atrial fibrillation: Heart rate is improved.
Cardiology correspondence reviewed, poor prognosis. Supportive care.
-
Lung nodule noted on chest x-ray.� CT imaging recommended as outpatient.� Given long term resident, DNR status, this will be deferred to primary physician.
-
DVT prophylaxis: LMWH
-
DNR
Given acute worsening, prognosis is poor.
Would focus on comfort, goals of care discussion. This was reinforced today to son and [id number]
Subjective Data
-
Date of Service:
Date of Service: May 20, 2023
Chief Complaint: Pulmonary Follow Up (Acute respiratory failure)
Subjective:
Seen this afternoon. Patient resting in bed in no acute distress. On 10 L/min nasal cannula, saturating 95%. Heart rate 99. Patient denies chest pain, headache, fevers or chills.
Review of Systems
General: Other (Negative unless mentioned above)
Objective Data
Data Reviewed
Vital Signs / I&O / Oxygen:
Vital Signs
Temp Pulse Resp BP Pulse Ox
102.4 F H 130 21 99/75 94
05/20/23 15:49 05/20/23 16:01 05/20/23 14:34 05/20/23 16:01 05/20/23 14:34
Intake and Output
05/19/23 05/20/23 05/21/23
06:59 06:59 06:59
Intake Total 578 / 578 860 / 860
Output Total 250 / 250
Balance 328 / 328 860 / 860
SaO2 94
Nasal Cannula flow liters per 15
minute
Physical Exam
General: Comfortable, Sweats (n) and Other (Cachectic)
HEENT: Normocephalic and Anicteric
Cardiovascular: S1-S2 and Peripheral Edema (negative)
Respiratory: Crackles, Accessory Resp Muscle Use (Mild), Stridor (n) and Other (reduced breath sounds mainly on left)
GI: Soft, Non Distended and Non Tender
Neurology: Other (Noncommunicative, not following commands.) and Other (Somnolent, occasionally coughing. Not following commands.)
Skin: Warm and Dry
Labs/Micro/Reports
Lab Data
05/20/23 04:56
05/20/23 04:56
Microbiology
05/12/23 16:01 Blood/Venous Blood Culture - Final
No Growth - Final Report
05/12/23 16:01 Blood/Venous Blood Culture - Final
No Growth - Final Report
[2023-05-20] MEDS: LEVOPHED 250 IV (13:08)
--- NOTE | 2023-05-20 13:39 | PTOTSP ---
Speech Therapy
Presentation: Patient was not able to verbally communicate with TRAILHEAD MAINTENANCE WORKER or family. Patient's cognitive status was likely a barrier to her ability to follow commands or communicate.
Swallowing Function: TRAILHEAD MAINTENANCE WORKER used a moistened swab in which patient appeared to minimally perk up and open her mouth. TRAILHEAD MAINTENANCE WORKER trialed 1 small tsp of thin liquids in which patient's mouth remained ajar. Patient was unable to follow commands or initiate a
reflexive swallow response (despite ample verbal, tactile cues). TRAILHEAD MAINTENANCE WORKER used oral suctioning to remove secretions. Given her cognitive state, clinical presentation, and CXR, no further PO was trialed.
Patient is not appropriate for ARHP due to her cognition, alertness, and current clinical presentation.
TRAILHEAD MAINTENANCE WORKER spent ample minutes educating patient's family, caregivers, and patient on recommendations, findings, and reasoning for current NPO status. TRAILHEAD MAINTENANCE WORKER provided comfort to family regarding her current clinical presentation.
Recommendations:
1) NPO at this time
2) No appropriate for ARHP
3) No medications by mouth
4) Strict aspiration precautions
5) Vigorous oral care
Plan: TRAILHEAD MAINTENANCE WORKER will continue to follow; pending hospitalization.
--- NOTE | 2023-05-20 14:22 | VATNOTE ---
Called by primary RN regarding L wrist IV infiltrate. IV discontinued, wrist elevated and heat applied. Discussed treatment plan with primary RN.
[2023-05-20] MEDS: TYLENOL/FEVERALL 650 MG RECTAL (15:38)
[2023-05-20] MEDS: LOPRESSOR 5 MG IV (16:01)
[2023-05-20] MEDS: LOPRESSOR IV (17:54)
[2023-05-20] MEDS: XOPENEX 1.25 MG INHALANT SOLUTION INH (20:00)
[2023-05-20] MEDS: ATROVENT NEBULES 0.5 MG INH (20:01)
[2023-05-20] MEDS: MUCOMYST 10% 4 ML INH (20:01)
--- NOTE | 2023-05-20 23:15 | PTCARENOTE ---
Pt has been restless and figity picking at her blankets and moving her legs around. She is mostly nonverbal but said clearly 'Can I have a cookie?' at one time. She is pale, skin is warm and dry. She was pulling at her IV tubing and took off her
oxygen once so placed a No-No over her PICC line to prevent her from pulling at it. Also placed a no-no on her L elbow to keep her from pulling at her tubes and IV's. Will continue to monitor. Heart monitor atrial fib is in the 90's and MAP has
been maintained above 56 on the Levophed gtt at 1 mcg/min through her PICC line.
[2023-05-21] VITALS (31 sets, daily range): BP systolic 86–125; BP diastolic 47–96; BMI 21.0
[2023-05-21] MEDS: D5/0.45%NACL 1000 IV ×2 (00:24→22:49)
[2023-05-21] MEDS: MAXIPIME 1000 MG IV ×2 (00:26→12:15)
[2023-05-21] MEDS: LOPRESSOR 5 MG IV ×4 (00:26→18:42)
[2023-05-21] MEDS: STERILE WATER FOR INJECTION 10 ML IV ×2 (00:26→12:14)
--- NOTE | 2023-05-21 00:55 | PTCARENOTE ---
Pt was pulling at IV and Oxygen, and is restless. Positioned for comfort. She does not follow commands and does not answer questions. GRAPHIC DESIGN PROFESSOR notified and Orders given for Mitts. Placed Mitts and she initially tried to remove them with her teeth.
She is a little more restful after repositioning. Instructed pt on need for mitts and on her plan of care. Occasionally she will talk to herself but unclear what she is saying. Will continue to monitor.
[2023-05-21] MEDS: FLAGYL 500 MG 100 IV ×3 (05:01→20:14)
[2023-05-21 05:25] LABS: Hematocrit 28.3 % (37.0-47.0); Hemoglobin 9.7 g/dL (12.0-16.0); Mean Corp Hgb Conc. 34.3 g/dL (33.0-37.0); Mean Corpuscular Hgb 27.5 pg (27.0-31.0); Mean Corpuscular Volume 80.2 fL (81.0-99.0); Mean Platelet Volume 9.7 fL (7.4-10.4); Platelet Count 319 10^3/uL (130-400); Red Blood Cell Count 3.53 10^6/uL (4.20-5.40); Red Cell Dist. Width 16.5 % (11.5-14.5); White Blood Cell Count 16.2 10^3/uL (4.8-10.8)
[2023-05-21 05:50] LABS: Blood Urea Nitrogen 17 mg/dl (7-17); Calcium 8.3 mg/dl (8.4-10.2); Carbon Dioxide 30 mmol/L (22-30); Chloride 104 mmol/L (98-107); Estimated Creatinine Clearance 53 ml/min; Glucose 189 mg/dl (70-99); Magnesium 2.2 mg/dl (1.6-2.3); Potassium 3.1 mmol/L (3.5-5.1); Sodium 136 mmol/L (135-145); eGFR > 60.00
[2023-05-21] MEDS: XOPENEX 1.25 MG INHALANT SOLUTION INH ×3 (07:53→20:30)
[2023-05-21] MEDS: ATROVENT NEBULES 0.5 MG INH ×3 (07:53→20:30)
[2023-05-21] MEDS: MUCOMYST 10% 4 ML INH ×3 (07:54→20:29)
[2023-05-21] MEDS: LOVENOX 50 MG SC ×2 (09:36→22:19)
[2023-05-21] MEDS: KCL 270 MEQ IV (09:36)
[2023-05-21] MEDS: BETAPACE PO ×2 (09:39→20:14)
--- NOTE | 2023-05-21 10:03 | W.PN.HOSP.TC ---
Today's Communication/Plan
-
Continue AB
Speech eval
Acapella Vest
Once starts PO we can add Mucolytics
Assessment / Plan
Assessment / Plan
88-year-old female with advanced dementia presented with increasing lethargy/change in mental status.� On admission to the emergency room, she was found to have hypotension and hypokalemia.� Patient was recently was in the hospital for
sepsis/septic shock with hypotension.� Source was felt to be UTI she was treated with antibiotics and fluids. Antibiotics were changed to Keflex for discharge. Patient was brought back to the hospital because her blood pressure was 70s over 40s at
the facility. Patient was readmitted.
CVS S1 S2 irregular
Chest clear to auscultation, diminished at bases and left
Abdomen soft and nontender
No pedal edema
CT of the abdomen and pelvis-no hydronephrosis or hydroureter or kidney stones. Moderate concentric thickening of the wall of the urinary bladder, small to moderate bilateral pleural effusions, cholelithiasis, diverticuli, mild lumbar
dextroscoliosis mild lumbar DDD
#05/18/23-Called to see the patient interventional radiology. Patient came down for thoracentesis and when she came down immediately turned blue and also became hypotensive. Patient was hypoxic to 70s she was placed on a nonrebreather mask. When I
arrived immediately and evaluated the patient she was cyanotic barely responsive. Hypotensive blood pressure went down to 70s to even upper 50s.. She sounded really gurgly. No vomiting reported. No food in the mouth. she was immediately started
on bolus IV fluids.
EKG obtained-did not look like ischemia. (Reviewed by me) Chest x-ray (Reviewed by me) small bilateral effusions atelectasis no evidence of CHF.
Quick bedside ultrasound also showed effusions have come down a lot since yesterday's ultrasound.
It took a while for the patient to get her saturations up therefore BiPAP was placed. Levophed was also started
She became somewhat responsive, still drowsy but arousable. Patient was in rapid A-fib rates better now.
It is possible that she may have aspirated
Thromboembolic disease unlikely since she has been on Eliquis
Continue IV cefepime and Flagyl for aspiration
Patient was on dysphagia diet prior
NPO till speech re evaluates
Head CT neg
Aspiration pneumonia
Atelectasis of the whole left lung, mucous plugging, aspiration-on vest therapy
She is off of Levophed and on 3 L of oxygen now.
Her mentation is mostly at baseline pleasantly demented.
# Septic shock likely from aspiration pneumonia-Off Levophed
�
# Moderate to large pleural effusions
Got much better with Lasix
Unclear if related to CHF
Other differentials include malignancy
Plan was to do thoracentesis however aborted because the rapid response and the fact that she does not have much fluid now.
Interestingly the chest x-ray on 05/12/2023 without significant effusion
#SIRS on admission
No source of infection found. Possible medications induced hypotension which resulted in SIRS features
Blood and urine cultures are no growth
Negative lactic acid on admission.
# Anemia-mild iron deficiency
-Started p.o. iron-Hold as NPO
# Hypokalemia.� Presented with potassium 2.7. Replace
# Advanced dementia, nonspecific type. No agitation. Hold home medications including Risperdal. Memantine
Most of the time pleasantly demented
#Paroxysmal atrial fibrillation, continue with rate control .� Continue with anticoagulation.�
History of cardioversions in the past
Continue sotalol, Eliquis
# Pacemaker
#Primary hypertension.� 2 admissions with hypotension. Patient has advanced dementia, low oral intake. She has been experiencing low blood pressure.
#Per daughter, she had congestive heart failure in the past. Last echo in 2018 showed normal left ventricular function. Patient has not had congestive heart failure admission for years. .
Chronic heart failure with preserved ejection fraction
ECHO 05/18/2023-normal LV systolic function ejection fraction 55 to 60%, mild MR, mild AI, mild TR, pleural effusion
# Hypothyroidism, continue with Synthroid IV
# History of bradycardia
# 12 mm nodular opacity in the right mid to upper lung zone.Daughter aware. OP CT
# Hypoalbuminemia
# Cholelithiasis
# Anxiety-Hold Xanax, Celexa
# Lumbar DDD
# History of lumpectomy left breast
# DVT phylaxis-Lovenox while NPO
D/W RN
D/W resp at bed side
I had a very long conversation with patient's daughter Cassandra. We reviewed that at this point mom has been off of pressors and down to 3 L of oxygen. She still has significant atelectasis on the left lung. She is also not able to swallow well.
Failed speech evaluation yesterday. Speech is going to again evaluate her today. Daughter wants to be here for that.
Right she has come around this time does not mean that she will be leeann like this in future aspiration events. Daughter started noticing that mom's dysphagia is gradually progressing. We also discussed that if she has another aspiration event she
has compromised lungs to work with. This means that she may not recover. I discussed about hospice. Even if she is [facility] to a prison requested to see if hospice would be appropriate for her mom. I have consulted case management to
have this discussion. Family has not decided about hospice however is interested in getting more information.
Daughter said that family is very thankful about mom's care at and the conversations.
time 51 min
Anticipated Discharge: 24 - 48 hours
Subjective/Interval History
-
Date of Service: May 21, 2023
Objective Data
-
Labs:
Laboratory Results
05/21/23
04:47
WBC 16.2 H
Hgb 9.7 L
Hct 28.3 L
Plt Count 319
Sodium 136
Potassium 3.1 L
Chloride 104
Carbon Dioxide 30
BUN 17
Creatinine 0.5 L
Glucose 189 H
Calcium 8.3 L
Vital Signs:
Vital Signs
Temp Pulse Resp BP Pulse Ox
97.8 F 102 18 119/74 94
05/21/23 07:15 05/21/23 09:00 05/21/23 09:00 05/21/23 09:00 05/21/23 09:35
I&O
05/20/23 05/21/23 05/22/23
06:59 06:59 06:59
Intake Total 860 / 860 1310 / 1310
Output Total 750 / 750
Balance 860 / 860 560 / 560
--- NOTE | 2023-05-21 11:31 | CM ---
fuel manager received a consult for hospice. fuel manager reached out to patient's daughter, Cassandra and spoke with her and she would like to discuss hospice, options reviewed and she is agreeable to [facility]. Referral sent to [facility].
Plan; Referral sent to [facility].
[2023-05-21] MEDS: FLUSH (NSS) 2 FLUSH IV (12:15)
--- NOTE | 2023-05-21 12:41 | HOSPNOTE ---
Spoke with patient's daughter Cassandra and discussed the hospice philosophy and how the hospice team cares for patient's in a SNF, provided Cassandra with this RN's phone number to contact with questions. Cassandra stated they are attempting to feed patient and
will consider information and make a decision.liaison planner will follow up.
--- NOTE | 2023-05-21 13:21 | PTOTSP ---
Speech Therapy
Presentation: Patient was positioned upright in her bed with family members present. Patient's RR and SpO2 remained WNL during the session. Patient did appear mayda more alert today in comparison to 05/20/23 session but remains confused, distracted,
and easily fatigued.
Swallowing Function: CLAY MAKER presented tsps of thin liquids, tsps of puree, and thin via straw. Patient was able to manipulate, initiate a timely swallow, and tolerate thin liquids via tsp as she did not exhibit any overt clinical s/sx of aspiration.
Patient could not coordinate the motor necessities to pull from a straw; despite ample verbal and tactile cues. Patient held the puree trials within the oral cavity and was unable to initiate a swallow; despite ample cues, and CLAY MAKER used oral
suctioning to remove debris.
Given the above information, recommend continuation of NPO with AHRP of thin liquids via tsp after oral care. Per discussion with MD, patient's family is considering hospice and would like their mother comfortable.
If comfort care is the treatment plan, thin liquids via tsp would likely be the safest diet at this time with full assistance and supervision. CLAY MAKER spent time educating patient and her family on recommendations and findings. CLAY MAKER also stressed the
importance of oral care and PO only when patient is ALERT. CLAY MAKER reviewed aspiration and the risks of silent aspiration.
Plan: CLAY MAKER will continue to follow; pending hospitalization.
[2023-05-21] MEDS: CARDIZEM 5 MG IV (16:38)
[2023-05-21] MEDS: FLUSH (NSS) 1 FLUSH IV (16:39)
--- NOTE | 2023-05-21 16:43 | W.PN.PUL3 ---
Today's Communication / Plan
-
Continue supplemental oxygen - wean as tolerated to keep SpO2 >90-94%
Keep MAP>65
Keep NPO
Head of the bed elevation
Continue antibiotics
Considering her left sided mucous plugging, I will continue nebulized TID and also start Mucomyst. Trial of chest PT on her left side to try to improve her cough given her cough is currently ineffective.
Focus on comfort
Assessment
-
88-year-old female with recurrent UTI, recently hospitalized for sepsis, discharged on cefazolin, now presents with hypotension not responding to IV fluids.� Patient required pressors.� Patient initially in the intensive care unit. Transferred to
the floors after improvement.
Pulmonary reconsulted 05/18/2023-patient while in interventional radiology laying supine became cyanotic and hypotensive. Hypoxic requiring nonrebreather mask. We were reconsulted for assist on the help of hypoxemia.
Acute hypoxemic respiratory failure: Due to left-sided atelectasis s/p aspiration event when went down to IR for thoracentesis on 05/18/2023 --> now on midflow nasal cannula
Hypotension/shock-requiring low-dose Levophed - weaned off AM of 05/21/2023
bilateral pleural effusions: Likely hypervolemia/CHF
Rapid atrial fibrillation when pt went down to IR on 05/18/2023 for thora
-
Sepsis, hypotension
Secondary to UTI
Anemia
Lung nodule
Conditions present prior to admission
Hypertension
Atrial fibrillation
Hypothyroidism
Osteoporosis
Dementia
[facility] resident
Plan/recommendations
-
Unfortunately, respiratory status remains tenuous. Remains in significant supplemental oxygen. Now 10 L via mid flow.
Aspiration event suspected on 05/18/2023 when she went down to IR for L-sided thora
Noncommunicative, alert. Not following commands.
-
Keep n.p.o. for now
Head of the bed elevation
Supportive care, prognosis is poor.
If PO medications needed then insert dobhoff tube
Considering her left sided mucous plugging, I will continue nebulized bronchodilators TID and also start Mucomyst. Given her tachycardia I changed her albuterol to xopenex, and use atrovent. We should try chest PT on her left side to try to
improve her cough given her cough is currently ineffective. Repeat CXR today shows persistent L-sided atelectasis.
-
Continue antibiotics: Cefepime/Flagyl - would give at least 10-14 days of ABx
A sputum culture if able-unable to produce.
Incentive spirometry if patient is able-patient does not engage so currently there is no use with IS
Avoid narcotics or any STROKE COORDINATOR-depressants
Aspiration precaution
Head of bed elevation
-
Vasovagal event also possibility-patient was being diuresed.
Due to hypotension during the event now diuresis is on hold.
Remains in shock possible septic component, currently on norepinephrine at 1mcg, hopefully can be weaned off.
-
Bilateral pleural effusions: some degree of volume overload, proBNP significantly elevated.
Not amenable for thoracentesis considering recent events
-
Continue nutritional support
Optimize cardiac status. Diuretics now on hold for due to hypotension.
-
Atrial fibrillation: Heart rate is improved.
Cardiology correspondence reviewed, poor prognosis. Supportive care.
-
Lung nodule noted on chest x-ray.� CT imaging recommended as outpatient.� Given shelter resident, DNR status, this will be deferred to primary physician.
-
DVT prophylaxis: LMWH
-
DNR
Given acute worsening, prognosis is poor.
Would focus on comfort, goals of care discussion. This was reinforced to son and [id number]
Patient was seen and evaluated on 05/21/2023.
Subjective Data
-
Date of Service:
Date of Service: May 21, 2023
Chief Complaint: Pulmonary Follow Up (Acute respiratory failure)
Subjective:
Seen this afternoon. Doing well. No acute events reported from overnight. On midflow nasal cannula at 3L/min.
Review of Systems
General: Unobtainable - Pat Unresp
Objective Data
Data Reviewed
Vital Signs / I&O / Oxygen:
Vital Signs
Temp Pulse Resp BP Pulse Ox
98.8 F 108 18 120/71 94
05/21/23 11:45 05/21/23 14:12 05/21/23 14:12 05/21/23 12:00 05/21/23 14:12
Intake and Output
05/20/23 05/21/23 05/22/23
06:59 06:59 06:59
Intake Total 860 / 860 1310 / 1310
Output Total 750 / 750
Balance 860 / 860 560 / 560
SaO2 94
Nasal Cannula flow liters per 3
minute
Physical Exam
General: Comfortable, Sweats (n) and Other (Cachectic)
HEENT: Normocephalic and Anicteric
Cardiovascular: S1-S2 and Peripheral Edema (negative)
Respiratory: Crackles, Accessory Resp Muscle Use (Mild), Stridor (n) and Other (reduced breath sounds mainly on left)
GI: Soft, Non Distended and Non Tender
Neurology: Other (Noncommunicative, not following commands.) and Other (Somnolent, occasionally coughing. Not following commands.)
Skin: Warm and Dry
Labs/Micro/Reports
Lab Data
05/21/23 04:47
05/21/23 04:47
--- NOTE | 2023-05-21 18:00 | PTCARENOTE ---
Patient afib on monitor with pvc's. Heart rate had been 80-low 100's all day but slowly started to increase up to 140's. Dr. Wilkerson notified and order obtained for 5mg IV cardizem x1. Patient BP's have remained stable all day off of levo drip.
Increased 02 to 5L at this time due to increase HR. Patient continues to require bilateral mitts and 4 side rails up to prevent patient from pulling off monitoring equipment and PICC.
[2023-05-22] VITALS (23 sets, daily range): BP systolic 89–125; BP diastolic 56–86; BMI 21.1
--- NOTE | 2023-05-22 00:32 | PTCARENOTE ---
Pt has been quiet and not pulling at things so Mitts removed and she has been calm and restful. Her color is pink and capillary refill is much improved since Levophed has been off, toes are pink and warm. MAP has been greater than 65 and she
remains in atrial fibrillation. Ventricular response has been 100's- 120. She is still not very responsive to staff interaction. She will open her eyes but does not consistently make eye contact. Decreased her O2 to 4 liters and pulse ox is 98%.
Will continue to monitor.
[2023-05-22] MEDS: MAXIPIME 1000 MG IV ×2 (00:53→13:04)
[2023-05-22] MEDS: LOPRESSOR 5 MG IV ×4 (00:53→18:01)
[2023-05-22] MEDS: STERILE WATER FOR INJECTION 10 ML IV ×2 (00:53→13:04)
[2023-05-22] MEDS: FLAGYL 500 MG 100 IV ×3 (05:01→21:04)
[2023-05-22 06:13] LABS: Hematocrit 26.3 % (37.0-47.0); Mean Corp Hgb Conc. 34.2 g/dL (33.0-37.0); Mean Corpuscular Hgb 28.2 pg (27.0-31.0); Mean Corpuscular Volume 82.4 fL (81.0-99.0); Mean Platelet Volume 10.4 fL (7.4-10.4); Platelet Count 332 10^3/uL (130-400); Red Blood Cell Count 3.19 10^6/uL (4.20-5.40); Red Cell Dist. Width 16.7 % (11.5-14.5); White Blood Cell Count 10.4 10^3/uL (4.8-10.8)
[2023-05-22 06:19] LABS: Blood Urea Nitrogen 17 mg/dl (7-17); Calcium 8.3 mg/dl (8.4-10.2); Carbon Dioxide 30 mmol/L (22-30); Chloride 105 mmol/L (98-107); Estimated Creatinine Clearance 53 ml/min; Glucose 108 mg/dl (70-99); Potassium 3.6 mmol/L (3.5-5.1); Sodium 140 mmol/L (135-145); eGFR > 60.00
--- NOTE | 2023-05-22 06:33 | W.PN.HOSP.TC ---
Addendum entered and electronically signed by Areli Alvarez MD 05/22/23 13:57:
Addendum
Patient is stable , no fevers
d/w speech, will do modified diet
will resume essential meds including psych meds.
End
Original Note:
Today's Communication/Plan
-
case work aide to discuss hospice
Assessment / Plan
Assessment / Plan
Physical Exam
General: Other (no acute distress, not very conversant)
HEENT: Moist mucous membranes and PERRLA
Respiratory: limited,� No Wheezes, Rales or Rhonchi
Cardiac: S1/S2
GI: Soft, Non Distended, Normal Bowel Sounds.
+ An.
Musculoskeletal: No Clubbing, No Cyanosis and No Edema
Neuro: Awake, alert sometimes, non verbal mostly , did not� followed commands.
�Psych: Calm; No agitation, apparent dementia.
88-year-old female with advanced dementia presented with increasing lethargy/change in mental status.� On admission to the emergency room, she was found to have hypotension and hypokalemia.� Patient was recently was in the hospital for
sepsis/septic shock with hypotension.� Source was felt to be UTI she was treated with antibiotics and fluids. Antibiotics were changed to Keflex for discharge. Patient was brought back to the hospital because her blood pressure was 70s over 40s at
the facility. Patient was readmitted.
# Low urine out put
increase IVF rate
# Hypothyroidism
change to IV Synthroid
CT of the abdomen and pelvis-no hydronephrosis or hydroureter or kidney stones. Moderate concentric thickening of the wall of the urinary bladder, small to moderate bilateral pleural effusions, cholelithiasis, diverticuli, mild lumbar
dextroscoliosis mild lumbar DDD
#05/18/23-Called to see the patient interventional radiology. Patient came down for thoracentesis and when she came down immediately turned blue and also became hypotensive. Patient was hypoxic to 70s she was placed on a nonrebreather mask. When I
arrived immediately and evaluated the patient she was cyanotic barely responsive. Hypotensive blood pressure went down to 70s to even upper 50s.. She sounded really gurgly. No vomiting reported. No food in the mouth. she was immediately started
on bolus IV fluids.
EKG obtained-did not look like ischemia. (Reviewed by me) Chest x-ray (Reviewed by me) small bilateral effusions atelectasis no evidence of CHF.
Quick bedside ultrasound also showed effusions have come down a lot since yesterday's ultrasound.
It took a while for the patient to get her saturations up therefore BiPAP was placed. Levophed was also started
She became somewhat responsive, still drowsy but arousable. Patient was in rapid A-fib rates better now.
It is possible that she may have aspirated
Thromboembolic disease unlikely since she has been on Eliquis
Continue IV cefepime and Flagyl for aspiration
Patient was on dysphagia diet prior
NPO till speech re evaluates
Head CT neg
Aspiration pneumonia
Atelectasis of the whole left lung, mucous plugging, aspiration-on vest therapy
She is off of Levophed and on 3 L of oxygen now.
Her mentation is mostly at baseline pleasantly demented.
# Septic shock likely from aspiration pneumonia-Off Levophed
�
# Moderate to large pleural effusions
Got much better with Lasix
Unclear if related to CHF
Other differentials include malignancy
Plan was to do thoracentesis however aborted because the rapid response and the fact that she does not have much fluid now.
Interestingly the chest x-ray on 05/12/2023 without significant effusion
#SIRS on admission
No source of infection found. Possible medications induced hypotension which resulted in SIRS features
Blood and urine cultures are no growth
Negative lactic acid on admission.
# Anemia-mild iron deficiency
-Started p.o. iron-Hold as NPO
# Hypokalemia.� Presented with potassium 2.7. Replace
# Advanced dementia, nonspecific type. No agitation. Hold home medications including Risperdal. Memantine
Most of the time pleasantly demented
#Paroxysmal atrial fibrillation, continue with rate control .� Continue with anticoagulation.�
History of cardioversions in the past
Continue sotalol, Eliquis
# Pacemaker
#Primary hypertension.� 2 admissions with hypotension. Patient has advanced dementia, low oral intake. She has been experiencing low blood pressure.
#Per daughter, she had congestive heart failure in the past. Last echo in 2018 showed normal left ventricular function. Patient has not had congestive heart failure admission for years. .
Chronic heart failure with preserved ejection fraction
ECHO 05/18/2023-normal LV systolic function ejection fraction 55 to 60%, mild MR, mild AI, mild TR, pleural effusion
# Hypothyroidism, continue with Synthroid IV
# History of bradycardia
# 12 mm nodular opacity in the right mid to upper lung zone.Daughter aware. OP CT
# Hypoalbuminemia
# Cholelithiasis
# Anxiety-Hold Xanax, Celexa
# Lumbar DDD
# History of lumpectomy left breast
# DVT phylaxis-Lovenox while NPO
Total time spent to see the patient, examine the patient on the floor, review data and lab results, discuss treatment plan with patient, nursing staff around 55 minutes
Anticipated Discharge: Within 24 hours
Subjective/Interval History
-
Date of Service: May 22, 2023
No chest pain
No sob
No abd pain
Objective Data
-
Labs:
Laboratory Results
05/22/23
05:14
WBC 10.4
Hgb 9.0 L
Hct 26.3 L
Plt Count 332
Sodium 140
Potassium 3.6
Chloride 105
Carbon Dioxide 30
BUN 17
Creatinine 0.6
Glucose 108 H
Calcium 8.3 L
Vital Signs:
Vital Signs
Temp Pulse Resp BP Pulse Ox
98.2 F 100 16 92/67 93
05/21/23 23:30 05/22/23 06:19 05/22/23 06:00 05/22/23 06:00 05/22/23 04:00
I&O
05/20/23 05/21/23 05/22/23
06:59 06:59 06:59
Intake Total 860 / 860 1310 / 1310 850 / 850
Output Total 750 / 750 520 / 520
Balance 860 / 860 560 / 560 330 / 330
[2023-05-22] MEDS: MUCOMYST 10% 4 ML INH ×3 (07:59→19:57)
[2023-05-22] MEDS: ATROVENT NEBULES 0.5 MG INH ×3 (07:59→19:57)
[2023-05-22] MEDS: XOPENEX 1.25 MG INHALANT SOLUTION INH ×3 (07:59→20:11)
[2023-05-22] MEDS: BETAPACE PO (09:30)
[2023-05-22] MEDS: LOVENOX 50 MG SC ×2 (09:30→21:05)
[2023-05-22] MEDS: NSS (PRESERVATIVE FREE) 0.25 ML IV ×2 (09:31→22:05)
[2023-05-22] MEDS: ATIVAN 0.5 MG IV ×2 (09:31→22:04)
--- NOTE | 2023-05-22 09:33 | PTCARENOTE ---
Patient calm. Mitt restraints discontinued overnight. Patient nonverbal this morning but opened eyes and was responsive to mouth care and teaspoons of water.
[2023-05-22] MEDS: FLUSH (NSS) 1 FLUSH IV (09:35)
--- NOTE | 2023-05-22 09:59 | W.PN.PUL.V3 ---
Today's Communication / Plan
-
Wean norepinephrine
Attempt to wean oxygen
Aspiration precautions
Comfort a priority
Reviewed with nursing
Assessment
-
88-year-old female with recurrent UTI, recently hospitalized for sepsis, discharged on cefazolin, now presents with hypotension not responding to IV fluids.� Patient required pressors.� Patient initially in the intensive care unit. Transferred to
the floors after improvement.
Pulmonary reconsulted 05/18/2023-patient while in interventional radiology laying supine became cyanotic and hypotensive. Hypoxic requiring nonrebreather mask. We were reconsulted for assist on the help of hypoxemia.
Acute hypoxemic respiratory failure: Due to left-sided atelectasis s/p aspiration event when went down to IR for thoracentesis on 05/18/2023 --> now on midflow nasal cannula
Hypotension/shock-requiring low-dose Levophed - weaned off AM of 05/21/2023
bilateral pleural effusions: Likely hypervolemia/CHF
Rapid atrial fibrillation when pt went down to IR on 05/18/2023 for thora
-
Sepsis, hypotension
Secondary to UTI
Anemia
Lung nodule
DNR
Conditions present prior to admission
Hypertension
Atrial fibrillation
Hypothyroidism
Osteoporosis
Dementia
longterm resident
Plan/recommendations
-
Unfortunately, respiratory status remains tenuous. Remains in significant supplemental oxygen. Now 6 L via mid flow.
Aspiration event suspected on 05/18/2023 when she went down to IR for L-sided thora
Noncommunicative, alert. Not following commands.
Continue n.p.o. for now
Head of the bed elevation per protocol
Supportive care, prognosis is poor.
If PO medications needed then insert dobhoff tube
Continue nebulizers 3 times daily-Xopenex and Atrovent with tachycardia
Mucomyst will be added
Attempt chest physiotherapy with vest therapy
Chest x-ray 05/21/2023-volume loss left hemithorax compatible with left lung atelectasis
Follow chest x-ray
Cultures reviewed
Empiric antibiotics continue-extend course 10-14 days
Wean norepinephrine off
Eventual diuresis as tolerated
Monitor renal function, electrolytes, intake/output, lower extremity edema and weight
Replace electrolytes as needed
Atrial fibrillation rate control
Cardiology following-correspondence reviewed
DVT prophylaxis-on Lovenox
Lung nodule noted on chest x-ray.� CT imaging recommended as outpatient.� Given senior living resident, DNR status, this will be deferred to primary physician.
Comfort a priority
Hospice discussions to begin
Subjective Data
-
Date of Service:
Date of Service: May 22, 2023
Chief Complaint: Pulmonary Follow Up (Acute respiratory failure)
Subjective:
Nonverbal, no distress, no complaints of increased respiratory distress by nursing, no cough,
Review of Systems
General: Other (Per HPI)
Objective Data
Data Reviewed
Vital Signs / I&O:
Vital Signs
Temp Pulse Resp BP Pulse Ox
97.7 F 101 21 102/67 95
05/22/23 07:40 05/22/23 09:00 05/22/23 09:00 05/22/23 09:00 05/22/23 09:28
Intake and Output
05/21/23 05/22/23 05/23/23
06:59 06:59 06:59
Intake Total 1310 / 1310 1430 / 1430
Output Total 750 / 750 520 / 520
Balance 560 / 560 910 / 910
SaO2: 95
Nasal Cannula flow liters per minute: 3
Physical Exam
General: Respiratory Distress (n), Comfortable, Sweats (n) and Other (Cachectic)
HEENT: Normocephalic and Anicteric
Cardiovascular: S1-S2 and Peripheral Edema (negative)
Respiratory: Crackles, Accessory Resp Muscle Use (Mild), Stridor (n) and Other (reduced breath sounds mainly on left)
GI: Soft, Non Distended and Non Tender
Neurology: Other (Noncommunicative, not following commands.) and Other (Somnolent, occasionally coughing. Not following commands.)
Skin: Warm, Good Color, Cyanosis (n) and Jaundice (n)
Labs/Micro/Reports
Lab Data
05/22/23 05:14
05/22/23 05:14
Microbiology
05/20/23 17:54 Nose MRSA Screen - Final
No Methicillin Resistant Staphylococcus aureus isolated.
--- NOTE | 2023-05-22 11:08 | HOSPNOTE ---
Addendum entered by Thelma Galvez RN 05/22/23 13:18:
Met with family and explained hospice and the philosophy. The family would like to discuss hospice with another sibling before making the final decision. The plan is to call me in the am with a decision. Case management updated.
Original Note:
Family meeting scheduled at 12noon. More information to follow.
[2023-05-22] MEDS: FLUSH (NSS) 2 FLUSH IV ×2 (13:03→22:07)
--- NOTE | 2023-05-22 13:41 | PTOTSP ---
ST Dysphagia Follow up/Tx session
Moderate oral and suspected pharyngeal dysphagia; baseline congested/non-productive cough, wax/wane mental and respiratory status
Pt received asleep awoke to verbal/tactile stim. Confused but redirectable. Baseline congested/non-productive cough. Repositioned upright in bed for PO trials of puree and thin liquids. Demo adequate oral access/containment of 1/2 tsp of puree,
mildly prolonged bolus manipulation and bolus was orally cleared. Thin liquids by tsp and straw sip. There was coughing following straw sips x1. Improved control with liquids by tsp. Pt declined further trials of water 'That's disgusting'.
Recommend
1. Full liquids - liquids by tsp
2. Aspiration precautions and feeding assist
3. Only feed when pt is awake/alert and stop if coughing
4. Small bites and liquids by tsp
5. Crush meds into apple sauce
6. NEPHROLOGY NURSE following
Spoke w/ RN and pt's daughter re: tx findings and recommendations
--- NOTE | 2023-05-22 14:03 | CM ---
CM reviewed patient with Hospice/Thelma
Family meeting with hospice this morning
Family still considering GOC and will need to discuss with another adult child before making decision
Hospice will continue to follow
Discharge Disposition- return to [facility], hospice TBD
[2023-05-22] MEDS: D5/0.45%NACL 1000 IV (17:59)
--- NOTE | 2023-05-22 18:00 | PTCARENOTE ---
Patient more alert today. Patient diet advanced to full liquids with strict aspiration precautions and supervision. Patient tolerated small amounts of full liquids. Some of PO meds were restarted today and given crushed in apple sauce or pudding.
BP's stable today. Heart rate 80's to low 100's.
[2023-05-22] MEDS: RISPERDAL 0.5 MG PO (18:01)
[2023-05-22] MEDS: ProAmatine 5 MG PO (18:01)
[2023-05-22] MEDS: LEVOTHROID 19 MCG IV (18:06)
[2023-05-22] MEDS: BETAPACE 80 MG PO (21:03)
[2023-05-22] MEDS: NAMENDA 5 MG PO (21:04)
--- NOTE | 2023-05-22 22:20 | PTCARENOTE ---
Received pt awake amd restless, needing to urinate. Placed on the bedpan and voided dark yellow urine. She later took off her pulse oxymeter and her oxygen and when evaluated he O2 sat was 86% on room air. Replaced o2 at 3 liters and Pulse Ox
improved to 94%. Continued to take off things like her ID bracelets and attempting to take of her ID anklet from the SNF. Gave her her ppm medications in pudding and swallowed without difficulty.
she has set of the bed alarm due to putting her legs over the side rails. Attempted to reorient her. She initiall was talking and said she wants to go home and 'I'm not sick'' and talking about her . She took her pills but would not drink
juice saying it was awful. She was getting very agitated so at 22:04 medicated with Ativan 0.5mg IV. Since then she has been putting her hands to her face like she is eating at times and acting like she was putting on her shoes while lying in bed.
She had what looked like a startle response 2 times where she will flail her arms and legs straight out and then relaxes. She will also talk and sing to herself at times. Observing her visually for safety as able with bed alarm on. Will monitor
pt.
[2023-05-23] VITALS (17 sets, daily range): BP systolic 83–134; BP diastolic 57–94; PULSE 90; O2SAT 96; BMI 21.6
[2023-05-23] MEDS: STERILE WATER FOR INJECTION 10 ML IV ×2 (00:43→11:35)
[2023-05-23] MEDS: MAXIPIME 1000 MG IV ×2 (00:43→11:34)
[2023-05-23] MEDS: LOPRESSOR 5 MG IV ×2 (00:44→05:46)
[2023-05-23] MEDS: FLAGYL 500 MG 100 IV (04:27)
--- NOTE | 2023-05-23 06:15 | W.PN.HOSP.TC ---
Today's Communication/Plan
-
.
Assessment / Plan
Assessment / Plan
Physical Exam
General: Other (no acute distress, not very conversant)
HEENT: Moist mucous membranes and PERRLA
Respiratory: limited,� No Wheezes, Rales or Rhonchi
Cardiac: S1/S2
GI: Soft, Non Distended, Normal Bowel Sounds.
+ An.
Musculoskeletal: No Clubbing, No Cyanosis and No Edema
Neuro: Awake, alert sometimes, non verbal mostly , did not followed commands. Hand mitts noted.
�Psych: Calm; No agitation, apparent dementia.
88-year-old female with advanced dementia presented with increasing lethargy/change in mental status.� On admission to the emergency room, she was found to have hypotension and hypokalemia.� Patient was recently was in the hospital for
sepsis/septic shock with hypotension.� Source was felt to be UTI she was treated with antibiotics and fluids. Antibiotics were changed to Keflex for discharge. Patient was brought back to the hospital because her blood pressure was 70s over 40s at
the facility. Patient was readmitted.
# GOC discussion
family is meeting with hospice
pt can be dc back to [place] with hospice consult.
# Low urine out put
better with IVF rate and starting oral intake
# Hypothyroidism
change back to oral
CT of the abdomen and pelvis-no hydronephrosis or hydroureter or kidney stones. Moderate concentric thickening of the wall of the urinary bladder, small to moderate bilateral pleural effusions, cholelithiasis, diverticuli, mild lumbar
dextroscoliosis mild lumbar DDD
#05/18/23-Called to see the patient interventional radiology. Patient came down for thoracentesis and when she came down immediately turned blue and also became hypotensive. Patient was hypoxic to 70s she was placed on a nonrebreather mask. When I
arrived immediately and evaluated the patient she was cyanotic barely responsive. Hypotensive blood pressure went down to 70s to even upper 50s.. She sounded really gurgly. No vomiting reported. No food in the mouth. she was immediately started
on bolus IV fluids.
EKG obtained-did not look like ischemia. (Reviewed by me) Chest x-ray (Reviewed by me) small bilateral effusions atelectasis no evidence of CHF.
Quick bedside ultrasound also showed effusions have come down a lot since yesterday's ultrasound.
It took a while for the patient to get her saturations up therefore BiPAP was placed. Levophed was also started
She became somewhat responsive, still drowsy but arousable. Patient was in rapid A-fib rates better now.
It is possible that she may have aspirated
Thromboembolic disease unlikely since she has been on Eliquis
Continue IV cefepime and Flagyl for aspiration
Patient was on dysphagia diet prior
NPO till speech re evaluates
Head CT neg
Aspiration pneumonia
Atelectasis of the whole left lung, mucous plugging, aspiration-on vest therapy
She is off of Levophed and on 3 L of oxygen now.
Her mentation is mostly at baseline pleasantly demented.
# Septic shock likely from aspiration pneumonia-Off Levophed
c/w oral midodrine
Pt has hx of recurrent hypotensive episodes.
�
# pleural effusions
Not in distress
Better with Lasix
Other differentials include malignancy
Plan was to do thoracentesis however aborted because the rapid response and the fact that she does not have much fluid now.
Interestingly the chest x-ray on 05/12/2023 without significant effusion
#SIRS on admission
No source of infection found. Possible medications induced hypotension which resulted in SIRS features
Blood and urine cultures are no growth
Negative lactic acid on admission.
# Anemia-mild iron deficiency
# Hypokalemia.�
# Advanced dementia, nonspecific type. back on her psych medications. Hx of taking them for many years for underlying mental illness with hx of auditory hallucinations.
#Paroxysmal atrial fibrillation, continue with rate control .� Continue with anticoagulation.�
History of cardioversions in the past
Continue sotalol, Eliquis
# Pacemaker
#Primary hypertension.� off BP meds due to low BP.
#Chronic heart failure with preserved ejection fraction
ECHO 05/18/2023-normal LV systolic function ejection fraction 55 to 60%, mild MR, mild AI, mild TR, pleural effusion
# History of bradycardia
# 12 mm nodular opacity in the right mid to upper lung zone.Daughter aware. OP CT
# Hypoalbuminemia
# Cholelithiasis
# Anxiety-Hold Xanax, Celexa
# Lumbar DDD
# History of lumpectomy left breast
# DVT phylaxis-Lovenox while NPO
Total time spent to see the patient, examine the patient on the floor, review data and lab results, discuss treatment plan with patient, nursing staff around 55 minutes
Anticipated Discharge: 24 - 48 hours
Subjective/Interval History
-
Date of Service: May 23, 2023
Night team, pt was more awake, some agitation and was given IV Ativan and hand mitts. Was able to take her pills.
Objective Data
-
Vital Signs:
Vital Signs
Temp Pulse Resp BP Pulse Ox
97.8 F 104 25 127/82 93
05/23/23 04:17 05/23/23 05:46 05/23/23 02:00 05/23/23 02:00 05/23/23 00:01
I&O
05/21/23 05/22/23 05/23/23
06:59 06:59 06:59
Intake Total 1310 / 1310 1430 / 1430 1050 / 1050
Output Total 750 / 750 520 / 520 170 / 170
Balance 560 / 560 910 / 910 880 / 880
[2023-05-23] MEDS: ATROVENT NEBULES 0.5 MG INH ×3 (07:34→19:41)
[2023-05-23] MEDS: XOPENEX 1.25 MG INHALANT SOLUTION INH (07:34)
[2023-05-23] MEDS: MUCOMYST 10% 4 ML INH ×3 (07:34→19:41)
[2023-05-23] MEDS: BETAPACE 80 MG PO ×2 (08:09→20:22)
[2023-05-23] MEDS: ProAmatine 5 MG PO ×3 (08:10→17:17)
[2023-05-23] MEDS: CELEXA 10 MG PO (08:11)
[2023-05-23] MEDS: XANAX 0.5 MG PO ×3 (08:11→20:21)
[2023-05-23] MEDS: NAMENDA 5 MG PO ×2 (08:11→20:22)
[2023-05-23] MEDS: D5/0.45%NACL 1000 IV (08:13)
--- NOTE | 2023-05-23 10:32 | PTOTSP ---
ST Dysphagia Follow up
Moderate oral dysphagia; minimal PO acceptance overall
Pt received awake/alert confused in b/l hand mitts. Baseline congested/non-productive cough persists. HOB raised upright for PO trials of puree and thin liquids. Demo adequate oral access/containment, mildly prolonged bolus manipulation and bolus
was orally cleared. Accepted ~3 trials prior to refusal. Thin liquids by straw sip - removal of straw after single sip swallow appears prompt. No overt s/sx of aspiration observed.
Recommend
1. Puree (L4) and Thin liquids - small/single sips
2. Aspiration precautions and 1:1 feeding assist.
3. Small bites, small/single sips from straw OK, and slow rate
4. Crush meds into apple sauce or pudding
5. Consider nutrition consult and calorie count
6. BUYER INTERN following
Spoke w/ RN and chat to physician re: tx findings and recommendations
[2023-05-23] MEDS: ELIQUIS 2.5 MG PO ×2 (10:39→20:21)
--- NOTE | 2023-05-23 10:52 | W.PN.PUL.V3 ---
Today's Communication / Plan
-
Supplemental oxygen
Aspiration precautions
Comfort a priority
Hospice discussions ongoing
Assessment
-
88-year-old female with recurrent UTI, recently hospitalized for sepsis, discharged on cefazolin, now presents with hypotension not responding to IV fluids.� Patient required pressors.� Patient initially in the intensive care unit. Transferred to
the floors after improvement.
Pulmonary reconsulted 05/18/2023-patient while in interventional radiology laying supine became cyanotic and hypotensive. Hypoxic requiring nonrebreather mask. We were reconsulted for assist on the help of hypoxemia.
Acute hypoxemic respiratory failure: Due to left-sided atelectasis s/p aspiration event when went down to IR for thoracentesis on 05/18/2023 --> now on midflow nasal cannula
Hypotension/shock-requiring low-dose Levophed - weaned off AM of 05/21/2023
bilateral pleural effusions: Likely hypervolemia/CHF
Rapid atrial fibrillation when pt went down to IR on 05/18/2023 for thora
-
Sepsis, hypotension
Secondary to UTI
Anemia
Lung nodule
DNR
Conditions present prior to admission
Hypertension
Atrial fibrillation
Hypothyroidism
Osteoporosis
Dementia
custodial resident
Plan
More alert but noncommunicative, continues with probable microaspiration
Speech therapy following
Unfortunately prognosis quite poor
Nebulizers
Mucomyst
Chest physiotherapy and vest if able
Note: Chest x-ray 05/21/2023-volume loss left hemithorax compatible with left lung atelectasis
Follow occasional chest x-ray
Cultures reviewed
Empiric antibiotics continue-extend course 10-14 days
Norepinephrine weaned off
Diuresis as tolerated
Follow renal function, electrolytes, intake/output, lower extremity edema and weight
Replace electrolytes as needed
Atrial fibrillation rate control
Cardiology following-correspondence reviewed
DVT prophylaxis-on Lovenox
Lung nodule noted on chest x-ray.� CT imaging recommended as outpatient.� Given long-term resident, DNR status, this will be deferred to primary physician.
Comfort a priority
Hospice discussions ongoing-reviewed with nursing
Subjective Data
-
Date of Service:
Date of Service: May 23, 2023
Chief Complaint: Pulmonary Follow Up (Acute respiratory failure) and Dyspnea Follow Up
Subjective:
Opens eyes, nonverbal, noncommunicative, no respiratory distress
Review of Systems
General: Other (Per HPI)
Objective Data
Data Reviewed
Vital Signs / I&O:
Vital Signs
Temp Pulse Resp BP Pulse Ox
96.7 F L 121 20 132/94 95
05/23/23 07:20 05/23/23 08:09 05/23/23 06:00 05/23/23 06:00 05/23/23 08:00
Intake and Output
05/22/23 05/23/23 05/24/23
06:59 06:59 06:59
Intake Total 1430 / 1430 2080 / 2080
Output Total 520 / 520 270 / 270
Balance 910 / 910 1810 / 1810
SaO2: 95
Nasal Cannula flow liters per minute: 3
Physical Exam
General: Respiratory Distress (n), Comfortable, Sweats (n) and Other (Cachectic)
HEENT: Normocephalic and Anicteric
Cardiovascular: S1-S2 and Peripheral Edema (negative)
Respiratory: Crackles, Accessory Resp Muscle Use (Mild), Stridor (n) and Other (reduced breath sounds mainly on left)
GI: Soft, Non Distended and Non Tender
Neurology: Other (Noncommunicative, not following commands.) and Other (Somnolent, occasionally coughing. Not following commands.)
Skin: Warm, Good Color, Cyanosis (n) and Jaundice (n)
Labs/Micro/Reports
Lab Data
05/22/23 05:14
05/22/23 05:14
Microbiology
05/20/23 17:54 Nose MRSA Screen - Final
No Methicillin Resistant Staphylococcus aureus isolated.
[2023-05-23] MEDS: LOPRESSOR 12.5 MG PO (11:33)
--- NOTE | 2023-05-23 12:04 | HOSPNOTE ---
Spoke with daughter Cassandra and the family is in agreement for patient to return to [place] without hospice services. There is one daughter that will not agree to hospice. I reached out to case management to update.
--- NOTE | 2023-05-23 13:52 | W.PN.UPDATE ---
Update Note
Progress Note Update
Addendum
Per hospice/CM. Family is not ready for hospice. They hope for a chance at SNF. Patient seems back to baseline. Able to take oral medications and her diet is advanced now. Remove Picc line as patient received total 5 days of ABx for presumed
aspiration event. Cancel restraints as patient is back on her usual psych medications and seems calm. Hope to send patient back to [facility] in next 24 -48 hours depending on dc arrangement. Patient remains ( unfortunately) high risk for an adverse nicolasa
event and re-admission.
d/w Staff and CM, help appreciated.
--- NOTE | 2023-05-23 14:20 | PTCARENOTE ---
Pt PICC line dc Mitts removed . Pt sleeping
--- NOTE | 2023-05-23 15:15 | VATNOTE ---
called to assess old picc site removal earlier today; dsg. soaked with bright red blood. Dsg changed per protocol with one Quik Clot applied; lara bandage applied as well. Elevated right arm on pillow. HARJINDER, Angel, updated. VAT to follow and change
dsg. in am.
--- NOTE | 2023-05-23 16:05 | CM ---
CM reviewed pt with Dr Alvarez and Thelma/hospice
Family does not want hospice at this time
Plan for SNF discharge tomorrow
Mitts discontinued and picc pulled
PT/OT placed and eval completed
CM reviewed pt's clinicals with Josephine/admissions
She will review with their DON to ensure pt can safely be cared for without hospice care
Concern initially noted for aspiration risk
Updated clinicals sent via [facility]
Pt will need be off mitts for 24 hours prior to return to SNF
Josephine aware pt is on new oxygen and will likely need on dc
IBC auth obtained for SNF and BLS with [facility]
SNF #[phone]
05/23-05/28 NRD (call [phone])
level I
[facility] Acute [facility] #[phone]
Discharge Disposition- return to [facility] via BLS
[2023-05-23] MEDS: RISPERDAL 0.5 MG PO (17:17)
[2023-05-23] MEDS: LOPRESSOR PO (17:18)
--- NOTE | 2023-05-23 18:06 | PTCARENOTE ---
Pt kept saying she had to pee , put on bedpan she voided 200 of mona urine
[2023-05-23] MEDS: D5/0.45%NACL IV (20:23)
[2023-05-24] VITALS: BP 101/70
[2023-05-24] MEDS: STERILE WATER FOR INJECTION IV (01:03)
[2023-05-24] MEDS: LOPRESSOR PO ×2 (03:18→05:52)
[2023-05-24 04:00] VITALS: BP 106/60
[2023-05-24] MEDS: SYNTHROID PO (05:53)
[2023-05-24 06:00] VITALS: BMI 22.1
--- NOTE | 2023-05-24 06:24 | W.PN.HOSP.TC ---
Addendum entered and electronically signed by Areli Alvarez MD 05/24/23 11:39:
Addendum
I called daughter Cassandra about dc instructions also
End
Addendum entered and electronically signed by Areli Alvarez MD 05/24/23 11:36:
Addendum
Patient became more alert and awake. She took her oral medications. Case management [facility]
Discussed with nursing staff.
Total discharge time spent to see the patient, examine the patient on the floor, review data and lab results, discuss treatment plan with patient, nursing staff around 65 minutes
Original Note:
Today's Communication/Plan
-
dc
Assessment / Plan
Assessment / Plan
Physical Exam
General: Other (no acute distress, not very conversant)
HEENT: Moist mucous membranes and PERRLA
Respiratory: limited,� No Wheezes, Rales or Rhonchi
Cardiac: S1/S2
GI: Soft, Non Distended, Normal Bowel Sounds.
+ An.
Musculoskeletal: No Clubbing, No Cyanosis and No Edema
Neuro: Awake, alert sometimes, non verbal mostly , did not followed commands. Hand mitts noted.
�Psych: Calm; No agitation, apparent dementia.
88-year-old female with advanced dementia presented with increasing lethargy/change in mental status.� On admission to the emergency room, she was found to have hypotension and hypokalemia.� Patient was recently was in the hospital for
sepsis/septic shock with hypotension.� Source was felt to be UTI she was treated with antibiotics and fluids. Antibiotics were changed to Keflex for discharge. Patient was brought back to the hospital because her blood pressure was 70s over 40s at
the facility. Patient was readmitted.
# GOC discussion
family is meeting with hospice
pt can be dc back to NH with hospice consult.
# Low urine out put
better with IVF rate and starting oral intake
# Hypothyroidism
change back to oral
CT of the abdomen and pelvis-no hydronephrosis or hydroureter or kidney stones. Moderate concentric thickening of the wall of the urinary bladder, small to moderate bilateral pleural effusions, cholelithiasis, diverticuli, mild lumbar
dextroscoliosis mild lumbar DDD
#05/18/23-Called to see the patient interventional radiology. Patient came down for thoracentesis and when she came down immediately turned blue and also became hypotensive. Patient was hypoxic to 70s she was placed on a nonrebreather mask. When I
arrived immediately and evaluated the patient she was cyanotic barely responsive. Hypotensive blood pressure went down to 70s to even upper 50s.. She sounded really gurgly. No vomiting reported. No food in the mouth. she was immediately started
on bolus IV fluids.
EKG obtained-did not look like ischemia. (Reviewed by me) Chest x-ray (Reviewed by me) small bilateral effusions atelectasis no evidence of CHF.
Quick bedside ultrasound also showed effusions have come down a lot since yesterday's ultrasound.
It took a while for the patient to get her saturations up therefore BiPAP was placed. Levophed was also started
She became somewhat responsive, still drowsy but arousable. Patient was in rapid A-fib rates better now.
It is possible that she may have aspirated
Thromboembolic disease unlikely since she has been on Eliquis
s/p 5 days of IV cefepime and Flagyl for aspiration. WBC normalized.
Patient was on dysphagia diet prior
Back on modified diet
Head CT neg
Aspiration pneumonia
Atelectasis of the whole left lung, mucous plugging, aspiration-on vest therapy
She is off of Levophed and on 2-3 L of oxygen now.
Her mentation is mostly at baseline pleasantly demented.
# Septic shock likely from aspiration pneumonia-Off Levophed
c/w oral midodrine
Pt has hx of recurrent hypotensive episodes.
Now stable vitals
�
# pleural effusions
Not in distress
Better with Lasix
Other differentials include malignancy
Plan was to do thoracentesis however aborted because the rapid response and the fact that she does not have much fluid now.
Interestingly the chest x-ray on 05/12/2023 without significant effusion
#SIRS on admission
No source of infection found. Possible medications induced hypotension which resulted in SIRS features
Blood and urine cultures are no growth
Negative lactic acid on admission.
# Anemia-mild iron deficiency
# Hypokalemia.�
# Advanced dementia, nonspecific type. back on her psych medications. Hx of taking them for many years for underlying mental illness with hx of auditory hallucinations.
#Paroxysmal atrial fibrillation, continue with rate control .� Continue with anticoagulation.�
History of cardioversions in the past
Continue sotalol, Eliquis
# Pacemaker
#Primary hypertension.� off BP meds due to low BP.
#Chronic heart failure with preserved ejection fraction
ECHO 05/18/2023-normal LV systolic function ejection fraction 55 to 60%, mild MR, mild AI, mild TR, pleural effusion
# History of bradycardia
# 12 mm nodular opacity in the right mid to upper lung zone.Daughter aware. OP CT
# Hypoalbuminemia
# Cholelithiasis
# Anxiety-Hold Xanax, Celexa
# Lumbar DDD
# History of lumpectomy left breast
# DVT phylaxis-Lovenox while NPO
Total time spent to see the patient, examine the patient on the floor, review data and lab results, discuss treatment plan with patient, nursing staff around 55 minutes
Anticipated Discharge: Today
Subjective/Interval History
-
Date of Service: May 24, 2023
No events over night
slept well
Objective Data
-
Vital Signs:
Vital Signs
Temp Pulse Resp BP Pulse Ox
97.3 F 77 12 106/60 98
05/23/23 23:00 05/24/23 04:00 05/24/23 04:00 05/24/23 04:00 05/23/23 23:00
I&O
05/22/23 05/23/23 05/24/23
06:59 06:59 06:59
Intake Total 1430 / 1430 2080 / 2080 520 / 520
Output Total 520 / 520 270 / 270 200 / 200
Balance 910 / 910 1810 / 1810 320 / 320
[2023-05-24] MEDS: ATROVENT NEBULES 0.5 MG INH (07:44)
[2023-05-24] MEDS: MUCOMYST 10% 4 ML INH (07:44)
[2023-05-24 08:00] VITALS: BP 111/66
--- NOTE | 2023-05-24 08:33 | W.PN.PUL.V3 ---
Today's Communication / Plan
-
Aspiration precautions.
Wean oxygen.
Comfort a priority.
Reviewed with nursing
Assessment
-
88-year-old female with recurrent UTI, recently hospitalized for sepsis, discharged on cefazolin, now presents with hypotension not responding to IV fluids.� Patient required pressors.� Patient initially in the intensive care unit. Transferred to
the floors after improvement.
Pulmonary reconsulted 05/18/2023-patient while in interventional radiology laying supine became cyanotic and hypotensive. Hypoxic requiring nonrebreather mask. We were reconsulted for assist on the help of hypoxemia.
Acute hypoxemic respiratory failure: Due to left-sided atelectasis s/p aspiration event when went down to IR for thoracentesis on 05/18/2023 --> now on midflow nasal cannula
Hypotension/shock-requiring low-dose Levophed - weaned off AM of 05/21/2023
bilateral pleural effusions: Likely hypervolemia/CHF
Rapid atrial fibrillation when pt went down to IR on 05/18/2023 for thora
-
Sepsis, hypotension
Secondary to UTI
Anemia
Lung nodule
DNR
Conditions present prior to admission
Hypertension
Atrial fibrillation
Hypothyroidism
Osteoporosis
Dementia
group home resident
Plan
More alert but noncommunicative, continues with probable microaspiration
Speech therapy following
Unfortunately prognosis quite poor
Nebulizers
Mucomyst
Chest physiotherapy and vest if able
Note: Chest x-ray 05/21/2023-volume loss left hemithorax compatible with left lung atelectasis
Follow occasional chest x-ray
Cultures reviewed
Empiric antibiotics continue-extend course 10-14 days
Norepinephrine weaned off
Diuresis as tolerated
Follow renal function, electrolytes, intake/output, lower extremity edema and weight
Replace electrolytes as needed
Atrial fibrillation rate control
Cardiology following-correspondence reviewed
DVT prophylaxis-on Lovenox
Lung nodule noted on chest x-ray.� CT imaging recommended as outpatient.� Given retirement resident, DNR status, this will be deferred to primary physician.
Comfort a priority
Hospice discussions ongoing-reviewed with nursing
Subjective Data
-
Date of Service:
Date of Service: May 24, 2023
Chief Complaint: Pulmonary Follow Up (Acute respiratory failure) and Dyspnea Follow Up
Objective Data
Data Reviewed
Vital Signs / I&O:
Vital Signs
Temp Pulse Resp BP Pulse Ox
97.3 F 82 16 106/60 96
05/23/23 23:00 05/24/23 07:48 05/24/23 07:48 05/24/23 04:00 05/24/23 07:48
Intake and Output
05/23/23 05/24/23 05/25/23
06:59 06:59 06:59
Intake Total 2080 / 2080 520 / 520
Output Total 270 / 270 200 / 200
Balance 1810 / 1810 320 / 320
SaO2: 96
Nasal Cannula flow liters per minute: 3
Physical Exam
General: Respiratory Distress (n), Comfortable, Sweats (n) and Other (Cachectic)
HEENT: Normocephalic and Anicteric
Cardiovascular: S1-S2 and Peripheral Edema (negative)
Respiratory: Crackles, Accessory Resp Muscle Use (Mild), Stridor (n) and Other (reduced breath sounds mainly on left)
GI: Soft, Non Distended and Non Tender
Neurology: Other (Noncommunicative, not following commands.) and Other (Somnolent, occasionally coughing. Not following commands.)
Skin: Warm, Good Color, Cyanosis (n) and Jaundice (n)
Labs/Micro/Reports
Lab Data
05/22/23 05:14
05/22/23 05:14
Microbiology
03/02/24 17:54 Nose MRSA Screen - Final
No Methicillin Resistant Staphylococcus aureus isolated.
[2023-05-24 08:47] VITALS: BP 105/82
--- NOTE | 2023-05-24 09:27 | CM ---
Addendum entered by Mary Burks 05/24/23 10:07:
Per nurse, ambulance mixing picker tender rescheduled to 1100
Addendum entered by Mary Burks 05/24/23 09:58:
Ambulance Pick-up is scheduled for 1200; daughter notified via phone;
IMM benefit explained to daughter via phone 09
Original Note:
Plan: Discharge to [facility] via ambulance today
Insurance Authorization for ambulance: [facility] Acute Care #[phone]
Report #: [phone]
Fax #: [phone]
[2023-05-24] MEDS: CELEXA 10 MG PO (09:30)
[2023-05-24] MEDS: BETAPACE 80 MG PO (09:30)
[2023-05-24] MEDS: RISPERDAL 0.25 MG PO (09:30)
[2023-05-24] MEDS: ProAmatine 5 MG PO (09:30)
[2023-05-24] MEDS: ELIQUIS 2.5 MG PO (09:31)
[2023-05-24] MEDS: NAMENDA 5 MG PO (09:31)
--- NOTE | 2023-05-24 10:00 | PTCARENOTE ---
pt rectal temp 93.9- Hospitalist notified
[2023-05-24] MEDS: SYNTHROID 50 MCG PO (10:48)
[2023-05-24] MEDS: XANAX PO (11:10)
--- NOTE | 2023-05-24 11:29 | W.DCSUMMARY ---
Discharge Summary
Discharge Data
Date of Admission: 05/12/23
Date of Discharge: 05/24/23
-
Pending Results: No
Hospital Course
88 years old female was brought in from intermediate for lethargy, failure to thrive and change in mental status. Patient had history of advanced dementia and mostly nonverbal. Patient was given empiric antibiotics and had blood culture. She had
mild urinary tract infection but did not feel to be the cause of her encephalopathy with hypotension. She was diagnosed with sepsis versus systemic inflammatory response syndrome. Patient was given pressure support medications and was admitted to
the intensive care unit. She was also found to have cyanosis with persistent hypotension. She subsequently stabilized and was moved out of the intensive care unit. She was found to have rapid atrial fibrillation. Patient was seen by
sheep herder. Recommended to continue with rate control medication and oral anticoagulation. Patient was followed by pulmonary/intensive care and sheep herder doctors. Recommendation to discuss the goal of care with family. Blood pressure was
stabilized on oral midodrine. Patient had longstanding history of benzodiazepine use for many years. She was placed back on her antipsychotic and Xanax treatment. Imaging studies show pleural effusion. She was sent for thoracentesis but did not
tolerate the procedure and a rapid response was called. Patient was a placed back in intermediate unit and was given oxygen supply with intravenous pressure support medication. She subsequently improved and was continued empirically on IV
antibiotic for presumed aspiration event. Patient was followed by speech therapist and she was a placed on modified diet. Patient was able to take her oral medications. Case management and hospice nurse had meetings with the family. A family
member was not ready for hospice care. The plan was to send the patient back to intermediate and continue oral medications as possible. Patient remained hemodynamically stable. She was discharged in a stable condition. Patient remained high risk
for recurrent adverse medical event and hospital readmission.
Discharge Plan
-
Patient Disposition: Long Term/SNF
Discharge Diagnosis/Procedures: Systemic inflammatory response syndrome. Negative blood cultures. Finished course of antibiotic
Aspiration pneumonia. Dysphagia, continue modified diet.
Dementia, advanced
Failure to thrive
Hypoxia only
Urine tract infection, treated.
Condition: Fair
Diet: As tolerated
Additional Diets: Pur�ed diet/aspiration precaution
Referrals:
Gopal Thakur DO [Family Provider] - in one to two weeks
Prescriptions:
New
midodrine 5 mg Tablet
5 mg PO Q4HPRN PRN (Reason: sbp less than 100) Qty: 10 0RF
midodrine 5 mg Tablet
5 mg PO TID@0800,1300,1800 Qty: 90 0RF
Continued
acetaminophen [Tylenol Extra Strength] 500 MG tablet
1,000 mg PO Q6HPRN PRN (Reason: mild pain)
acetaminophen [Tylenol] 325 mg Tablet
650 mg PO Q4HPRN PRN (Reason: fever>100.4)
risperidone 0.25 mg Tablet
0.25 mg PO DAILY
magnesium hydroxide [Milk of Magnesia] 400 mg/5 mL Suspension
2,400 mg PO HSPRN PRN (Reason: constipation)
bisacodyl [Dulcolax (bisacodyl)] 10 mg Suppository
10 mg CA [id number] PRN (Reason: if no bm aftr mom)
risperidone 0.5 mg Tablet
0.5 mg PO QPM
memantine [Namenda XR] 7 mg Capsule,Sprinkle,Er 24hr
7 mg PO DAILY
Senna Plus 8.6-50 mg Capsule
2 tab-cap PO QPM
acetaminophen 650 mg Suppository
650 mg CA Q4H PRN (Reason: fever)
citalopram 10 mg Tablet
10 mg PO DAILY
levothyroxine 50 mcg Tablet
50 mcg PO DAILY@0630
Patient Comments:
Start Date: 05/13/23
cholecalciferol (vitamin D3) 1,250 mcg (50,000 unit) capsule
1,250 mcg PO MONTHLY
Rx Instructions:
Monday
sotalol 80 MG tablet
80 mg PO BID@
Eliquis 2.5 MG tablet
2.5 mg PO BID@
alprazolam [Xanax] 0.5 mg Tablet
0.5 mg PO TID@829,1329,1829 Qty: 0 0RF
Rx Instructions:
Hold for sedation
Discontinued
furosemide 20 MG tablet
20 mg PO DAILY
lisinopril 20 MG tablet
40 mg PO DAILY
alendronate 70 MG tablet
70 mg PO TH
cephalexin 500 mg capsule
500 mg PO QID
Rx Instructions:
for 4 more days
Discharge Orders:
Discharge Patient (As Directed); Ordered 05/24/23
Ordered By: Areli Alvarez
== END 2023-05-24 11:38 | DRG 314 ==
LOC: IMU 17:59
PROVIDERS: Emergency Medicine; Hospitalist; Nurse Practitioner Family; Physician Assistant Medical; Radiology Diagnostic Radiology; ADMITTING PHYSICIAN Internal Medicine; CONSULT PHYSICIAN Internal Medicine Cardiovascular Disease; CONSULT PHYSICIAN Internal Medicine Critical Care Medicine; EMERGENCY PHYSICIAN Emergency Medicine; FAMILY PHYSICIAN Student in an Organized Health Care Education/Training Program
PROC: 5A09357 Assistance with Respiratory Ventilation, Less than 24 Consecutive Hours, Continuous Positive Airway Pressure (ICD-10-PCS; 2023-05-18)
PROC: 02HV33Z Insertion of Infusion Device into Superior Vena Cava, Percutaneous Approach (ICD-10-PCS; 2023-05-19)
DX: I95.9 Hypotension, unspecified (principal); A41.9 Sepsis, unspecified organism; J69.0 Pneumonitis due to inhalation of food and vomit; R65.21 Severe sepsis with septic shock; F03.C4 Unspecified dementia, severe, with anxiety; R65.10 Systemic inflammatory response syndrome (SIRS) of non-infectious origin without acute organ dysfunction; I50.32 Chronic diastolic (congestive) heart failure; J98.11 Atelectasis; R09.02 Hypoxemia; R23.0 Cyanosis; I48.0 Paroxysmal atrial fibrillation; F32.A Depression, unspecified; R62.7 Adult failure to thrive; E03.9 Hypothyroidism, unspecified; E78.00 Pure hypercholesterolemia, unspecified; M81.0 Age-related osteoporosis without current pathological fracture; I11.0 Hypertensive heart disease with heart failure; R13.10 Dysphagia, unspecified; R91.1 Solitary pulmonary nodule; D64.9 Anemia, unspecified; E87.6 Hypokalemia; E88.09 Other disorders of plasma-protein metabolism, not elsewhere classified; Z66 Do not resuscitate; M51.36 Other intervertebral disc degeneration, lumbar region; K80.20 Calculus of gallbladder without cholecystitis without obstruction; M41.56 Other secondary scoliosis, lumbar region; Z53.09 Procedure and treatment not carried out because of other contraindication; Z95.0 Presence of cardiac pacemaker; Z87.01 Personal history of pneumonia (recurrent); Z87.440 Personal history of urinary (tract) infections; Z11.52 Encounter for screening for COVID-19; Z88.5 Allergy status to narcotic agent; Z88.0 Allergy status to penicillin; Z88.2 Allergy status to sulfonamides; Z79.01 Long term (current) use of anticoagulants; Z79.890 Hormone replacement therapy; Z96.641 Presence of right artificial hip joint; Z79.83 Long term (current) use of bisphosphonates
CPT/HCPCS: 51701; 70450; 71045; 74176; 76604; 80048; 80053; 80202; 81003; 81015; 82607; 82728; 82805; 82962; 83540; 83550; 83605; 83615; 83735; 83880; 84132; 84155; 84484; 85025; 85027; 85610; 85730; 87040; 87070; 87086; 87811; 92526; 92610; 93005; 93306; 94640; 94660; 94667; 94668; 94669; 96361; 96374; 96375; 97163; 97164; 97166; 97168; 97530; 97535; 99285